=== PATIENT | male | born 1975 | race Caucasian/White ===

== ENCOUNTER 2017-01-29 22:29 | Inpatient (IN) | payer SELFPAY ==
[~2017-01-29] VITALS: Ht 175.3 cm; Wt 64.9 kg
[~2017-01-29 22:29] MED LIST: INSU-118 SQ; LISI-357 PO; METF500 PO; NOVO7030P2 SQ; NRSS SQ
[2017-01-29 22:31] VITALS: BP 122/73; PULSE 77; RESP 16; TEMP 98.3; O2SAT 97
[2017-01-29] MEDS ORDERED: METF1000 PO (22:52)
[2017-01-29] MEDS ORDERED: LANTUS2P SQ (22:52)
[2017-01-29] MEDS ORDERED: NOVORP2 SQ (22:52)
--- NOTE | 2017-01-29 23:09 | PD ---
HPI Chief Complaint: Diabetic Time Seen by Provider: 23:01 Travel History International Travel<30 days: No Contact w/Intl Traveler<30days: No Traveled to known affect area: No History of Present Illness HPI 41-year-old male presents to the emergency department by private transportation in the care of significant other for evaluation of polydipsia polyuria dental pain right flank pain and concerned that he may be in DKA. Patient reports that he was diagnosed as a diabetic 2 years ago. Patient states that he has no financial her insurance resources for managing his diabetes. Patient has noted dental pain to the right mandibular dentition along with oral thrush. Patient has history of diabetes, previous substance abuse, depression. Patient does not report any suicidal or homicidal ideation at this time. Patient rates his overall pain as 7/10 in intensity. Patient also complains of recent congestion and reportedly yesterday had a fever of 10 1F. PFSH Past Medical History Narrative Medical Diabetes diminished hearing substance abuse anxiety depression appendectomy tobaccoism alcohol use; nursing notes reviewed Bipolar Disorder: Yes Depression: Yes Cardiovascular Problems: Yes (HTN) Diabetes: Yes Patient Takes Glucophage: No (METFORMIN 01/29/17 0900) Diminished Hearing: Yes (RIGHT EAR) Hypertension: Yes Immunizations Current: Yes Tetanus Vaccination: Unknown Influenza Vaccination: No Past Surgical History Appendectomy: Yes Genitourinary Surgery: Yes (part of right testicle removed ) Social History Alcohol Use: No (DENIES) Tobacco Use: Yes (1/2 PPD) Substance Use: Yes (OPIATES, "ANYTHING I CAN GET") Allergies-Medications (Allergen,Severity, Reaction): Coded Allergies: penicillin G (Verified Allergy, Unknown, 01/29/17) Reported Meds & Prescriptions Reported Meds & Active Scripts Active Reported Novolin R Inj (Insulin Human Regular) 1,000 Unit/10 Ml Vial 0 SQ DIRECTED Sliding Scale As Directed. Lantus Inj (Insulin Glargine) 1,000 Unit/10 Ml Vial 80 Units SQ BID Metformin (Metformin HCl) 1,000 Mg Tab 1,000 Mg PO BIDPC With meals Review of Systems Except as stated in HPI: all other systems reviewed are Neg General / Constitutional: Positive: Fever, No: Chills (yesterday 101) HENT: Positive: Dental Difficulties, No: Congestion Cardiovascular: No: Chest Pain or Discomfort Respiratory: No: Shortness of Breath Gastrointestinal: Positive: Nausea, No: Vomiting, Abdominal Pain Genitourinary: Positive: Dysuria, Flank Pain Neurologic: Positive: Weakness Psychiatric: Positive: Anxiety Endocrine: Positive: Polyuria, Polydipsia Hematologic/Lymphatic: No: Easy Bruising Physical Exam Narrative GENERAL: Well-developed well-nourished male in no acute distress no respiratory distress; GCS 15 SKIN: Warm and dry. HEAD: Atraumatic. Normocephalic. EYES: Pupils equal and round. No scleral icterus. No injection or drainage. ENT: No nasal bleeding or discharge. Mucous membranes pink and moist. Multiple white plaques over the soft hard palate and tongue consistent with oral candidiasis #31 tooth with erosion and decay no gingival soft tissue swelling or fluctuance. NECK: Trachea midline. No JVD. Supple no meningismus no nuchal rigidity CARDIOVASCULAR: Regular rate and rhythm. RESPIRATORY: No accessory muscle use. Clear to auscultation. Breath sounds equal bilaterally. GASTROINTESTINAL: Abdomen soft, tender right upper quadrant and right lower quadrant without guarding or rebound, nondistended. Hepatic and splenic margins not palpable. MUSCULOSKELETAL: Extremities without clubbing, cyanosis, or edema. No obvious deformities. Right flank tenderness to percussion and palpation NEUROLOGICAL: Awake and alert. No obvious cranial nerve deficits. Motor grossly within normal limits. Five out of 5 muscle strength in the arms and legs. Normal speech. PSYCHIATRIC: Appropriate mood and affect; insight and judgment normal. Data Data Last Documented VS Vital Signs Date Time Temp Pulse Resp B/P (MAP) Pulse Ox O2 Delivery O2 Flow Rate FiO2 01/29/17 23:38 18 97 Room Air 01/29/17 22:31 98.3 77 Orders Orders Electrocardiogram (01/29/17 23:) Complete Blood Count With Diff (01/29/17 23:) Comprehensive Metabolic Panel (01/29/17 23:) Magnesium (Mg) (01/29/17 23:) Beta Hydroxybutyrate (Acetone) (01/29/17 23:) Lactic Acid (01/29/17 23:) Urinalysis - C+S If Indicated (01/29/17 23:) Blood Culture (01/29/17 23:) Chest, Single Ap (01/29/17 23:) Blood Glucose (01/29/17 23:) Ecg Monitoring (01/29/17 23:01) Iv Access Insert/Monitor (01/29/17 23:01) Oximetry (01/29/17 23:01) NPO (01/29/17 23:01) Sodium Chlor 0.9% 1000 Ml Inj (Ns 1000 M (01/29/17 23:31) Sodium Chloride 0.9% Flush (Ns Flush) (01/29/17 23:15) Troponin I (01/29/17 23:01) Lipase (01/29/17 23:01) Insulin Human Regular Inj (Novolin R Inj (01/29/17 23:15) Alcohol (Ethanol) (01/29/17 23:01) Drug Screen, Random Urine (01/29/17 23:01) Admit To Inpatient (01/30/17 ) Vital Signs (Adult) Q4H (01/30/17 00:28) Activity Oob Ad Patricia (01/30/17 00:28) Prototyper / Telemetry .CONTINUOUS (01/30/17 00:28) Diet 1800 Ada Cons Carb (01/30/17 Breakfast) Sodium Chloride 0.9% Flush (Ns Flush) (01/30/17 00:30) Sodium Chloride 0.9% Flush (Ns Flush) (01/30/17 09:00) Basic Metabolic Panel (Bmp) (01/31/17 06:00) Complete Blood Count With Diff (01/31/17 06:00) Case Management Consult (01/30/17 00:28) Naloxone Inj (Narcan Inj) (01/30/17 00:30) Inpatient Certification (01/30/17 ) Basic Metabolic Panel (Bmp) (01/30/17 01:00) Basic Metabolic Panel (Bmp) (01/30/17 05:00) Basic Metabolic Panel (Bmp) (01/30/17 09:00) Sodium Chlor 0.9% 1000 Ml Inj (Ns 1000 M (01/30/17 00:45) Ct Abd/Pel W/O Iv Contrast (01/30/17 ) Admit Order (Ed Use Only) (01/30/17 ) ^ Saline Lock (01/30/17 01:01) Resp Oxygen Smith C Titrat 1-4 L (01/30/17 ) Notify Dr: Other (01/30/17 01:01) Sodium Chloride 0.9% Flush (Ns Flush) (01/30/17 09:00) Sodium Chloride 0.9% Flush (Ns Flush) (01/30/17 01:15) Labs Laboratory Tests Test 01/29/17 23:30 White Blood Count 15.9 TH/MM3 Red Blood Count 4.81 MIL/MM3 Hemoglobin 14.3 GM/DL Hematocrit 44.2 % Mean Corpuscular Volume 91.9 FL Mean Corpuscular Hemoglobin 29.8 PG Mean Corpuscular Hemoglobin Concent 32.5 % Red Cell Distribution Width 13.1 % Platelet Count 316 TH/MM3 Mean Platelet Volume 9.1 FL Neutrophils (%) (Auto) 74.2 % Lymphocytes (%) (Auto) 17.4 % Monocytes (%) (Auto) 7.3 % Eosinophils (%) (Auto) 0.4 % Basophils (%) (Auto) 0.7 % Neutrophils # (Auto) 11.8 TH/MM3 Lymphocytes # (Auto) 2.8 TH/MM3 Monocytes # (Auto) 1.2 TH/MM3 Eosinophils # (Auto) 0.1 TH/MM3 Basophils # (Auto) 0.1 TH/MM3 CBC Comment DIFF FINAL Differential Comment Urine Color LIGHT-YELLOW Urine Turbidity CLEAR Urine pH 7.0 Urine Specific [place] 1.029 Urine Protein NEG mg/dL Urine Glucose (UA) 1000 mg/dL Urine Ketones TRACE mg/dL Urine Occult Blood NEG Urine Nitrite NEG Urine Bilirubin NEG Urine Urobilinogen LESS THAN 2.0 MG/DL Urine Leukocyte Esterase NEG Urine RBC LESS THAN 1 /hpf Urine WBC LESS THAN 1 /hpf Microscopic Urinalysis Comment CULT NOT INDICATED Blood Urea Nitrogen 18 MG/DL Creatinine 1.50 MG/DL Random Glucose 1200 MG/DL Total Protein 8.0 GM/DL Albumin 3.7 GM/DL Calcium Level 9.2 MG/DL Magnesium Level 2.0 MG/DL Alkaline Phosphatase 97 U/L Aspartate Amino Transf (AST/SGOT) 18 U/L Alanine Aminotransferase (ALT/SGPT) 38 U/L Total Bilirubin 0.9 MG/DL Sodium Level 113 MEQ/L Potassium Level 4.4 MEQ/L Chloride Level 73 MEQ/L Carbon Dioxide Level 24.3 MEQ/L Anion Gap 16 MEQ/L Estimat Glomerular Filtration Rate 51 ML/MIN Lactic Acid Level 1.6 mmol/L Troponin I LESS THAN 0.02 NG/ML Lipase 208 U/L Urine Opiates Screen POS Urine Barbiturates Screen NEG Urine Amphetamines Screen NEG Urine Benzodiazepines Screen NEG Urine Cocaine Screen NEG Urine Cannabinoids Screen NEG Ethyl Alcohol Level LESS THAN 3 MG/DL B-Hydroxybutyrate 0.99 MMOL/L MDM Medical Decision Making Medical Screen Exam Complete: Yes Emergency Medical Condition: Yes Medical Record Reviewed: Yes (12) Interpretation(s) EKG: Sinus bradycardia rate [address] elevation without reciprocal ST segment depression and artifact present at baseline Differential Diagnosis Hyperglycemia, DKA, oral candidiasis, pneumonia, UTI, pyelonephritis, renal colic, dehydration, electrolyte disturbance, substance abuse Narrative Course IV access obtained specimens collected and sent for resulting including lactic acid and blood cultures; patient administered 2 L normal saline and one time dose of weight-based regular insulin 6 units IV Patient given additional IV fluid bolus and patient's labs resulted Patient's case discussed with on-call medicine for hyperglycemia glucose 1200 with factitious hyponatremia sodium 113 with normal range potassium of 4.4 bicarbonate normal range and only minimally elevated anion gap of 16 lactic acid not elevated at 1.6 beta hydroxybutyric acid mildly elevated at 0.99 urinalysis showed positive glucose and positive small ketones otherwise was unremarkable CT abdomen and pelvis performed shows uropathprudence or acute intra-abdominal or pelvic process tox screen was positive for opiates Patient's case discussed with on-call medicine Dr. Elise would like to admit patient for hyperosmolar hyperglycemia nonketotic most likely small amount of elevation serum acetone and mild elevation of anion gap possibly indicating early DKA but currently not in DKA. Millie Trinidad MD Jan 29, 2017 23:09
[2017-01-29] MEDS ORDERED: INSULIN HUMAN REGULAR 1,000 UNITS/10 ML VIAL IV PUSH ONE (23:15)
[2017-01-29] MEDS ORDERED: SODIUM CHLORIDE 0.9% FLUSH 10 ML FLUSH IVF PRN (23:15)
[2017-01-29] MEDS ORDERED: SODIUM CHLOR 0.9% 1000 ML INJ 1,000 ML IV ONE (23:31)
[2017-01-29 23:38] VITALS: RESP 18; O2SAT 97
[2017-01-29 23:44] LABS: BLOOD, URINE NEG (NEG); COMMENT (UR) CULT NOT INDICATED; CULTURE IF INDICATED CULT NOT INDICATED; GLUCOSE,URINE 1000 mg/dL (NEG); KETONE, URINE TRACE mg/dL (NEG); NITRITE,URINE NEG (NEG); URINE COLOR LIGHT-YELLOW (YELLW/STRAW)
[2017-01-29 23:45] LABS: AUTOMATED NEUTROPHIL # 11.8 TH/MM3 (1.8-7.7); BASOPHIL # 0.1 TH/MM3 (0-0.2); BASOPHIL % 0.7 % (0.0-2.0); EOSINOPHIL # 0.1 TH/MM3 (0-0.4); EOSINOPHIL % 0.4 % (0.0-4.0); HEMATOCRIT 44.2 % (39.0-51.0); HEMO FLAGS DIFF FINAL; LYMPH % 17.4 % (9.0-44.0); LYMPHOCYTE # 2.8 TH/MM3 (1.0-4.8); MEAN CELL VOLUME 91.9 FL (80.0-100.0); MEAN CORPUSCULAR HEMOGLOBIN 29.8 PG (27.0-34.0); MEAN CORPUSCULAR HGB CONC 32.5 % (32.0-36.0); MONO % 7.3 % (0.0-8.0); NEUT % 74.2 % (16.0-70.0); PLATELET COUNT 316 TH/MM3 (150-450); RED BLOOD COUNT 4.81 MIL/MM3 (4.50-5.90); RED CELL DISTRIBUTION WIDTH 13.1 % (11.6-17.2); WHITE BLOOD COUNT 15.9 TH/MM3 (4.0-11.0)
[2017-01-30] VITALS (18 sets, daily range): BP systolic 100–117; BP diastolic 57–73; PULSE 61–100; RESP 18; TEMP 97.8–98.5; O2SAT 97–99
[2017-01-30 00:21] LABS: ALCOHOL LESS THAN 3 MG/DL (0-5); ALKALINE PHOSPHATASE 97 U/L (45-117); ALT (GPT) 38 U/L (12-78); ANION GAP 16 MEQ/L (5-15); AST (GOT) 18 U/L (15-37); BETA-HYDROXYBUTYRATE 0.99 MMOL/L (0.00-0.39); BICARBONATE 24.3 MEQ/L (21.0-32.0); BLOOD UREA NITROGEN 18 MG/DL (7-18); CHLORIDE 73 MEQ/L (98-107); GLOMERULAR FILTRATION RATE 51 ML/MIN (>89); POTASSIUM 4.4 MEQ/L (3.5-5.1); TOTAL BILIRUBIN ADULT 0.9 MG/DL (0.2-1.0)
[2017-01-30 00:23] LABS: SODIUM (NA) 113 MEQ/L (136-145)
--- NOTE | 2017-01-30 00:28 | RADRPT ---
EXAM DATE/TIME: 01/29/2017 23:45 [facility] COMPARISON: CHEST SINGLE AP, August 20, 2015, 1:54. INDICATIONS : Cough. MEDICAL HISTORY : Diabetes mellitus type I. SURGICAL HISTORY : None. ENCOUNTER: Initial ACUITY: 1 day PAIN SCORE: 0/10 LOCATION: Bilateral chest FINDINGS: A single view of the chest demonstrates the lungs to be symmetrically aerated without evidence of mas s, infiltrate or effusion. The cardiomediastinal contours are unremarkable. Right clavicle fracture with nonunion. CONCLUSION: No acute disease. Right clavicle fracture noted with nonunion Rell Blankenship MD on January 30, 2017 at 0:26 Board Certified Radiologist. This report was verified electronically.
[2017-01-30] MEDS ORDERED: NALOXONE HCL 0.4 MG/ML AMP IV PRN (00:30)
[2017-01-30] MEDS ORDERED: SODIUM CHLORIDE 0.9% FLUSH 10 ML FLUSH IV FLUSH PRN (00:30)
[2017-01-30] MEDS ORDERED: SODIUM CHLORIDE 0.9% FLUSH 10 ML FLUSH IVF PRN (01:15)
--- NOTE | 2017-01-30 01:45 | RADRPT ---
EXAM DATE/TIME: 01/30/2017 01:26 [facility] COMPARISON: No previous studies available for comparison. INDICATIONS : Right flank pain. ORAL CONTRAST: No oral contrast ingested. RADIATION DOSE: 4.86 CTDIvol (mGy) MEDICAL HISTORY : Hypertension. Diabetes. SURGICAL HISTORY : Appendectomy. ENCOUNTER: Initial ACUITY: 1 day PAIN SCALE: 7/10 LOCATION: Right flank TECHNIQUE: Volumetric scanning of the abdomen and pelvis was performed. Using automated exposure control and ad justment of the mA and/or kV according to patient size, radiation dose was kept as low as reasonably achievable to obtain optimal diagnostic quality images. DICOM format image data is available electro nically for review and comparison. FINDINGS: Limitations are clear. No acute findings in the liver, spleen, adrenals or pancreas. There are 2 tiny nonobstructing 1 mm or less calculi lower pole right kidney. Left kidney unremarkable. No hydronephr osis or evidence for obstructive uropathy. No bowel obstruction. No free air or free fluid. No pelvic masses or adenopathy. Previous yvette fixatio n right femur. CONCLUSION: 1. Tiny nonobstructing calculi lower pole right kidney. No acute findings. Negative for obstructive u ropathy. Rell Blankenship MD on January 30, 2017 at 1:41 Board Certified Radiologist. This report was verified electronically.
[2017-01-30] MEDS: SODIUM CHLOR 0.9% 1000 ML INJ 1,000 ML IV SCH ×4 (01:58→12:24)
[2017-01-30 02:26] LABS: BICARBONATE 24.5 MEQ/L (21.0-32.0); POTASSIUM 3.7 MEQ/L (3.5-5.1)
[2017-01-30] MEDS ORDERED: DEXTROSE 50% IN WATER 50 ML VIAL(D50) IV PRN ×2 (03:30→11:45)
[2017-01-30] MEDS ORDERED: GLUCAGON 1 MG/ML VIAL IM PRN (03:30)
[2017-01-30] MEDS ORDERED: INSULIN HUMAN REGULAR 1,000 UNITS/10 ML VIAL IV PUSH PRN (04:00)
[2017-01-30] MEDS ORDERED: SODIUM CHLOR 0.9% 1000 ML INJ 1,000 ML IV ONE (04:00)
--- NOTE | 2017-01-30 04:25 | HHI.HP ---
[facility] No Primary Care Physician . Admission Diagnosis hyperosmolar-hyperglycemia;dehydration . Diagnoses: (1) Uncontrolled diabetes mellitus Chief Complaint: weakness, fatigue, nausea, vomiting, fever Travel History International Travel<30 Days: No Contact w/Intl Traveler <30 Da: No Traveled to Known Affected Are: No History of Present Illness Written by Perla Pederson, acting as scribe for Dr. Forrester on 01/30/17 at 04:16. The patient reports that he has been feeling weak, fatigued, nauseated, vomiting , fever of 101 at home. 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 Review of Systems Except as stated in HPI: all other systems reviewed are Neg Past Family Social History Past Medical History Type 2 Diabetes Mellitus - diagnosed 2 years ago Possible Hepatitis Hypertension Kidney stones Seizures Bipolar disorder Denies CAD, CHF, COPD, emphysema, asthma, DVT, CVA, PE, thyroid, cancer, or prostate problems . Past Surgical History Appendectomy Right femur, jaw, nose repair for fractures - reconstructive Right hydrocelectomy 08/23/14 - Dr. Sorensen . Reported Medications Reported Meds & Active Scripts Active Reported Novolin R Inj (Insulin Human Regular) 1,000 Unit/10 Ml Vial 0 SQ DIRECTED Sliding Scale As Directed. Lantus Inj (Insulin Glargine) 1,000 Unit/10 Ml Vial 80 Units SQ BID Metformin (Metformin HCl) 1,000 Mg Tab 1,000 Mg PO BIDPC With meals . Allergies: Coded Allergies: penicillin G (Verified Allergy, Unknown, 01/29/17) Active Ordered Medications Current Medications Sodium Chloride 1,000 ml @ 2,000 mls/hr Q30M ONCE IV Last administered on 01/29 23:49; Start 01/29/17 at 23:31; Stop 01/30/17 at 00:00; Status DC Sodium Chloride (NS Flush) 2 ml UNSCH PRN IVF FLUSH AFTER USING IV ACCESS; Start 01/29/17 at 23:15; Stop 01/30/17 at 00:38; Status DC Insulin Human Regular (NovoLIN R INJ) 6 units ONCE ONCE IV PUSH Last administered on 01/29/17 23:48; Start 01/29/17 at 23:15; Stop 01/29/17 at 23:16 ; Status DC Sodium Chloride (NS Flush) 2 ml UNSCH PRN IV FLUSH FLUSH AFTER USING IV ACCESS ; Start 01/30/17 at 00:30; Stop 01/30/17 at 01:05; Status DC Sodium Chloride (NS Flush) 2 ml BID IV FLUSH ; Start 01/30/17 at 09:00; Stop at 09:00; Status DC Naloxone HCl (Narcan Inj) 0.4 mg UNSCH PRN IV SEE LABEL COMMENTS; Start at 00:30 Sodium Chloride 1,000 ml @ 200 mls/hr Q5H IV Last administered on 01/30/17 01 :58; Start 01/30/17 at 00:45 Sodium Chloride (NS Flush) 2 ml BID IV FLUSH ; Start 01/30/17 at 09:00 Sodium Chloride (NS Flush) 2 ml UNSCH PRN IVF FLUSH AFTER USING IV ACCESS; Start 01/30/17 at 01:15 Dextrose (D50w (Vial) Inj) 50 ml UNSCH PRN IV HYPOGLYCEMIA-SEE COMMENTS; Start 01/30/17 at 03:30 Glucagon (Glucagon Inj) 1 mg STAT PRN IM HYPOGLYCEMIA-SEE COMMENTS; Start 01/30 at 03:30 Sodium Chloride 1,000 ml @ 999 mls/hr BOLUS ONCE IV Last administered on 01/30 04:06; Start 01/30/17 at 04:00; Stop 01/30/17 at 05:00 Insulin Human Regular (NovoLIN R INJ) 10 units UNSCH X1 PRN IV PUSH BS>350 Last administered on 01/30/17 04:06; Start 01/30/17 at 04:00; Stop 01/30/17 at 04:30 . Family History Grandfather with colon CA in his 50's/60's . Social History Smokes: 1 PPD Alcohol: Denies Illicit Drugs: IV Dilaudid - last used a few days ago, heroin . Physical Exam Vital Signs Vital Signs Date Time Temp Pulse Resp B/P (MAP) Pulse Ox O2 Delivery O2 Flow Rate FiO2 01/30/17 01:41 64 18 112/68 (83) 97 Room Air 01/30/17 01:04 21 01/29/17 23:38 18 97 Room Air 01/29/17 22:31 98.3 77 16 122/73 (89) 97 Room Air Physical Exam GENERAL: This is an unkempt, pale, thin male patient, who appears somewhat agitated. SKIN: No rashes. Cool and dry. HEAD: Atraumatic. Normocephalic. EYES: Pupils equal round and reactive. No injection or drainage. ENT: Nose without bleeding, purulent drainage. Throat with apparent oral thrush. Airway patent. NECK: Trachea midline. No JVD. Supple, nontender, no meningeal signs. CARDIOVASCULAR: Regular rate and rhythm without murmurs, gallops, or rubs. RESPIRATORY: Clear to auscultation. Breath sounds equal bilaterally. No wheezes , rales, or rhonchi. GASTROINTESTINAL: Abdomen soft, non-tender, nondistended. No guarding. MUSCULOSKELETAL: Extremities without clubbing, cyanosis, or edema. NEUROLOGICAL: Awake and alert. Motor and sensory grossly within normal limits. Normal speech. . Laboratory Laboratory Tests Test 01/29/17 23:30 01/30/17 01:45 White Blood Count 15.9 Red Blood Count 4.81 Hemoglobin 14.3 Hematocrit 44.2 Mean Corpuscular Volume 91.9 Mean Corpuscular Hemoglobin 29.8 Mean Corpuscular Hemoglobin Concent 32.5 Red Cell Distribution Width 13.1 Platelet Count 316 Mean Platelet Volume 9.1 Neutrophils (%) (Auto) 74.2 Lymphocytes (%) (Auto) 17.4 Monocytes (%) (Auto) 7.3 Eosinophils (%) (Auto) 0.4 Basophils (%) (Auto) 0.7 Neutrophils # (Auto) 11.8 Lymphocytes # (Auto) 2.8 Monocytes # (Auto) 1.2 Eosinophils # (Auto) 0.1 Basophils # (Auto) 0.1 CBC Comment DIFF FINAL Differential Comment Urine Color LIGHT-YELLOW Urine Turbidity CLEAR Urine pH 7.0 Urine Specific [place] 1.029 Urine Protein NEG Urine Glucose (UA) 1000 Urine Ketones TRACE Urine Occult Blood NEG Urine Nitrite NEG Urine Bilirubin NEG Urine Urobilinogen LESS THAN 2.0 Urine Leukocyte Esterase NEG Urine RBC LESS THAN 1 Urine WBC LESS THAN 1 Microscopic Urinalysis Comment CULT NOT INDICATED Blood Urea Nitrogen 18 14 Creatinine 1.50 1.15 Random Glucose 1200 779 Total Protein 8.0 Albumin 3.7 Calcium Level 9.2 7.9 Magnesium Level 2.0 Alkaline Phosphatase 97 Aspartate Amino Transf (AST/SGOT) 18 Alanine Aminotransferase (ALT/SGPT) 38 Total Bilirubin 0.9 Sodium Level 113 124 Potassium Level 4.4 3.7 Chloride Level 73 87 Carbon Dioxide Level 24.3 24.5 Anion Gap 16 13 Estimat Glomerular Filtration Rate 51 69 Lactic Acid Level 1.6 Troponin I LESS THAN 0.02 Lipase 208 Urine Opiates Screen POS Urine Barbiturates Screen NEG Urine Amphetamines Screen NEG Urine Benzodiazepines Screen NEG Urine Cocaine Screen NEG Urine Cannabinoids Screen NEG Ethyl Alcohol Level LESS THAN 3 B-Hydroxybutyrate 0.99 Date/Time Source Procedure Growth Status 01/29/17 23:30 Blood Peripheral Aerobic Blood Culture Pending Received 01/29/17 23:30 Blood Peripheral Anaerobic Blood Culture Pending Received Result Diagram: 01/29/17 2330 01/30/17 0145 Imaging Last Impressions Abdomen/Pelvis CT 01/30/17 0000 Signed Impressions: Service Date/Time: January 01:26 - CONCLUSION: 1. Tiny nonobstructing calculi lower pole right kidney. No acute findings. Negative for obstructive uropathy. Rell Blankenship MD Chest X-Ray 01/29/17 2301 Signed Impressions: Service Date/Time: Sunday, January 29, 2017 23:45 - CONCLUSION: No acute disease. Right clavicle fracture noted with nonunion Rell Blankenship MD . Caprini VTE Risk Assessment Caprini VTE Risk Assessment: Mod/High Risk (score >= 2) Caprini Risk Assessment Model Point Value = 1 Point Value = 2 Point Value = 3 Point Value = 5 Age 41-60 Minor surgery BMI > 25 kg/m2 Swollen legs Varicose veins or History of unexplained or recurrent spontaneous Oral contraceptives or hormone replacement Sepsis (< 1 month) Serious lung disease, including pneumonia (< 1 month) Abnormal pulmonary function Acute myocardial infarction Congestive heart failure (< 1 month) History of inflammatory bowel disease Medical patient at bed rest Age 61-74 Arthroscopic surgery Major open surgery (> 45 min) Laparoscopic surgery (> 45 min) Malignancy Confined to bed (> 72 hours) Immobilizing plaster cast Central venous access Age >= 75 History of VTE Family history of VTE Factor V Leiden Prothrombin [id number] Lupus anticoagulant Anticardiolipin antibodies Elevated serum homocysteine Heparin-induced thrombocytopenia Other congenital or acquired thrombophilia Stroke (< 1 month) Elective arthroplasty Hip, pelvis, or leg fracture Acute spinal cord injury (< 1 month) Prophylaxis Regimen Total Risk Factor Score Risk Level Prophylaxis Regimen 0-1 Low Early ambulation 2 Moderate Order ONE of the following: *Sequential Compression Device (SCD) *Heparin 5000 units SQ BID 3-4 Higher Order ONE of the following medications: *Heparin 5000 units SQ TID *Enoxaparin/Lovenox 40 mg SQ daily (WT < 150 kg, CrCl > 30 mL/min) *Enoxaparin/Lovenox 30 mg SQ daily (WT < 150 kg, CrCl > 10-29 mL/min) *Enoxaparin/Lovenox 30 mg SQ BID (WT < 150 kg, CrCl > 30 mL/min) AND/OR *Sequential Compression Device (SCD) 5 or more Highest Order ONE of the following medications: *Heparin 5000 units SQ TID (Preferred with Epidurals) *Enoxaparin/Lovenox 40 mg SQ daily (WT < 150 kg, CrCl > 30 mL/min) *Enoxaparin/Lovenox 30 mg SQ daily (WT < 150 kg, CrCl > 10-29 mL/min) *Enoxaparin/Lovenox 30 mg SQ BID (WT < 150 kg, CrCl > 30 mL/min) AND *Sequential Compression Device (SCD) Assessment and Plan Problem List: (1) Uncontrolled diabetes mellitus ICD Code: E11.65 - Type 2 diabetes mellitus with hyperglycemia Status: Acute (2) Oral thrush ICD Code: B37.0 - Candidal stomatitis Assessment and Plan Uncontrolled diabetes mellitus Hyperosmolar Hyperglycemia - IVF - Insulin 70/30 15 units subq BID - 1800 kcal ADA diet - Accuchecks q3h - nursing to call for blood glucose > 250 - insulin dosage ordered at time of RN call for now - transition to SSI coverage when blood glucose better controlled Thrush - Nystatin 5cc swish and swallow QID Agitation/History of benzodiazepine withdrawal - PRN Ativan 1 mg IV q2h PRN for withdrawal symptoms Bipolar disorder with suicidal ideation - sitter at bedside - consult psychiatry - assistance appreciated Case management consult for assistance with medications on discharge and possible placement at [facility] DVT prophylaxis - Lovenox 40 mg subq daily . This note was transcribed by zakia [Perla Pederson]. I, Dr. Elvia Forrester personally performed the history, physical exam, and medical decision making; and confirmed the accuracy of the information in the transcribed note. Authenticated by Dr. Elvia Forrester on 01/30/17 at 04:16. Discussed Condition With ER physician, RN, and patient . Physician Certification 2 Midnight Certification Type: Admission for Inpatient Services Order for Inpatient Services The services are ordered in accordance with Medicare regulations or non- Medicare payer requirements, as applicable. In the case of services not specified as inpatient-only, they are appropriately provided as inpatient services in accordance with the 2-midnight benchmark. Estimated LOS (days): 3 days is the estimated time the patient will need to remain in the hospital, assuming treatment plan goals are met and no additional complications. Post-Hospital Plan: Not yet determined Perla Pederson Jan 30, 2017 04:25 Elvia Forrester MD Jan 30, 2017 04:50
[2017-01-30] MEDS ORDERED: NYSTATIN SUSP 500,000 U/5 ML CUP SWISH-SWAL ONE (04:45)
[2017-01-30] MEDS ORDERED: LORazepam 2 MG/ML VIAL IV PUSH ONE ×2 (05:15→22:30)
[2017-01-30] MEDS: ENOXAPARIN SODIUM 40 MG/0.4 ML SYRINGE SQ SCH (05:24)
[2017-01-30 05:57] LABS: BICARBONATE 25.6 MEQ/L (21.0-32.0); POTASSIUM 3.3 MEQ/L (3.5-5.1)
[2017-01-30] MEDS: INSULIN HUMAN NPH/R 70/30 1,000 UNITS/10 ML VIAL SQ SCH ×2 (07:59→17:00)
--- NOTE | 2017-01-30 08:01 | HHI.PR ---
Subjective Remarks in no acute distress. denies pain. blood sugar levels improved. Objective Vitals Vital Signs Date Time Temp Pulse Resp B/P (MAP) Pulse Ox O2 Delivery O2 Flow Rate FiO2 01/30/17 07:05 61 18 102/61 (75) 99 Room Air 01/30/17 07:05 61 17 99 Room Air 01/30/17 07:05 97.8 63 18 106/57 (73) 99 Room Air 01/30/17 06:22 63 18 100/63 (75) 98 Room Air 01/30/17 05:01 63 18 101/61 (74) 99 Room Air 01/30/17 03:45 64 18 108/60 (76) 97 Room Air 01/30/17 01:41 64 18 112/68 (83) 97 Room Air 01/30/17 01:04 21 01/29/17 23:38 18 97 Room Air 01/29/17 22:31 98.3 77 16 122/73 (89) 97 Room Air I/O 01/29/17 01/29/17 01/29/17 01/30/17 01/30/17 01/30/17 07:00 15:00 23:00 07:00 15:00 23:00 Intake Total 3000 ml Balance 3000 ml Intake IV Total 3000 ml Result Diagram: 01/29/17 2330 01/30/17 0520 Imaging Last Impressions Abdomen/Pelvis CT 01/30/17 0000 Signed Impressions: Service Date/Time: January 01:26 - CONCLUSION: 1. Tiny nonobstructing calculi lower pole right kidney. No acute findings. Negative for obstructive uropathy. Rell Blankenship MD Chest X-Ray 01/29/17 2301 Signed Impressions: Service Date/Time: Sunday, January 29, 2017 23:45 - CONCLUSION: No acute disease. Right clavicle fracture noted with nonunion Rell Blankenship MD Objective Remarks GENERAL: This is a well-nourished, well-developed patient, in no apparent distress. CARDIOVASCULAR: Regular rate and regular rhythm without murmurs, gallops, or rubs. RESPIRATORY: Clear to auscultation. Breath sounds equal bilaterally. No wheezes , rales, or rhonchi. GASTROINTESTINAL: Abdomen soft, non-tender, nondistended. Normal, active bowel sounds MUSCULOSKELETAL: Extremities without clubbing, cyanosis, or edema. NEURO: Alert & Oriented x4 to person, place, time, situation. Moves all ext x4 Medications and IVs Current Medications Sodium Chloride 1,000 ml @ 2,000 mls/hr Q30M ONCE IV Last administered on 01/29 23:49; Start 01/29/17 at 23:31; Stop 01/30/17 at 00:00; Status DC Sodium Chloride (NS Flush) 2 ml UNSCH PRN IVF FLUSH AFTER USING IV ACCESS; Start 01/29/17 at 23:15; Stop 01/30/17 at 00:38; Status DC Insulin Human Regular (NovoLIN R INJ) 6 units ONCE ONCE IV PUSH Last administered on 01/29/17 23:48; Start 01/29/17 at 23:15; Stop 01/29/17 at 23:16 ; Status DC Sodium Chloride (NS Flush) 2 ml UNSCH PRN IV FLUSH FLUSH AFTER USING IV ACCESS ; Start 01/30/17 at 00:30; Stop 01/30/17 at 01:05; Status DC Sodium Chloride (NS Flush) 2 ml BID IV FLUSH ; Start 01/30/17 at 09:00; Stop at 09:00; Status DC Naloxone HCl (Narcan Inj) 0.4 mg UNSCH PRN IV SEE LABEL COMMENTS; Start at 00:30 Sodium Chloride 1,000 ml @ 200 mls/hr Q5H IV Last administered on 01/30/17 06 :19; Start 01/30/17 at 00:45 Sodium Chloride (NS Flush) 2 ml BID IV FLUSH ; Start 01/30/17 at 09:00 Sodium Chloride (NS Flush) 2 ml UNSCH PRN IVF FLUSH AFTER USING IV ACCESS; Start 01/30/17 at 01:15 Dextrose (D50w (Vial) Inj) 50 ml UNSCH PRN IV HYPOGLYCEMIA-SEE COMMENTS; Start 01/30/17 at 03:30 Glucagon (Glucagon Inj) 1 mg STAT PRN IM HYPOGLYCEMIA-SEE COMMENTS; Start 01/30 at 03:30 Sodium Chloride 1,000 ml @ 999 mls/hr BOLUS ONCE IV Last administered on 01/30 04:06; Start 01/30/17 at 04:00; Stop 01/30/17 at 05:00; Status DC Insulin Human Regular (NovoLIN R INJ) 10 units UNSCH X1 PRN IV PUSH BS>350 Last administered on 01/30/17 04:06; Start 01/30/17 at 04:00; Stop 01/30/17 at 04:30; Status DC Lorazepam (Ativan Inj) 1 mg ONCE ONCE IV PUSH Last administered on 01/30/17 05:24; Start 01/30/17 at 05:15; Stop 01/30/17 at 05:16; Status DC Lorazepam (Ativan Inj) 1 mg Q2H PRN IV PUSH withdrawal symptoms; Start at 04:45 Insulin Human Isoph/Insulin Regular (NovoLIN 70/30 INJ) 15 units BID@08,17 SQ ; Start 01/30/17 at 08:00 Nystatin (Mycostatin Liq) 5 ml QID SWISH-SWAL ; Start 01/30/17 at 09:00 Nystatin (Mycostatin Liq) 5 ml ONCE ONCE SWISH-SWAL Last administered on 01/30 05:23; Start 01/30/17 at 04:45; Stop 01/30/17 at 04:46; Status DC Enoxaparin Sodium (Lovenox Inj) 40 mg Q24H SQ Last administered on 01/30/17 05 :24; Start 01/30/17 at 06:00 A/P Assessment and Plan A/P Uncontrolled diabetes mellitus Hyperosmolar Hyperglycemia - IVF - Insulin 70/30 15 units subq BID - 1800 kcal ADA diet - continue accu-check with SSI - will monitor and adjust the regimen as needed. Hyponatremia- improved- will monitor Hypokalemia; will replace and monitor. Thrush - Nystatin 5cc swish and swallow QID Agitation/History of benzodiazepine withdrawal - PRN Ativan 1 mg IV q2h PRN for withdrawal symptoms Bipolar disorder with suicidal ideation - sitter at bedside - consulted psychiatry - assistance appreciated Case management consult for assistance with medications on discharge and possible placement at [facility] DVT prophylaxis - Lovenox 40 mg subq daily Keeley Ahn MD Jan 30, 2017 08:01
[2017-01-30] MEDS: NYSTATIN SUSP 500,000 U/5 ML CUP SWISH-SWAL SCH ×4 (08:05→21:40)
[2017-01-30] MEDS: SODIUM CHLORIDE 0.9% FLUSH 10 ML FLUSH IV FLUSH SCH ×2 (08:06→21:40)
--- NOTE | 2017-01-30 08:23 | EKG ---
Date Performed: 01/30/2017 Time Performed: 00:03:21 PTAGE: 41 years EKG: SINUS BRADYCARDIA WITH SHORT HI INTERVAL DIFFUSE NONSPECIFIC ST ELEVATION BORDERLINE ECG PREVIOUS TRACING : 08/20/2015 02.44 No significant change from previous tracing noted. DOCTOR: Oc Fernandez Interpretating Date/Time 01/30/2017 08:22:13
[2017-01-30] MEDS ORDERED: SODIUM CHLORIDE 0.9% FLUSH 10 ML FLUSH IV FLUSH SCH (09:00)
[2017-01-30] MEDS ORDERED: POTASSIUM CHLORIDE 10 MEQ CONTROLLED RELEASE TAB PO ONE (09:00)
--- NOTE | 2017-01-30 11:26 | PD.PSY.CON ---
Provisional Diagnosis Admission Date Jan 30, 2017 at 01:03 [place] I. Adjustment disorder with mixed disturbance of emotion and conduct History of Present Illness Service Psychiatry Consult Requested By Hospitalist Reason for Consult Suicidal statements. Primary Care Physician No Primary Care Physician HPI 41-year-old male admitted with [id number] diabetes, oral thrush and suicide threats. Patient declined to speak with this physician and asked this physician to go away. This physician spoke with the patient's and received information from her. Apparently the patient has a significant history of drug abuse. He is not employed. They are in great financial difficulty. The patient is often times refusing to receive medical assistance. He has in the past attempted to be treated at [facility] but they will not accept him for drug treatment, due to his diabetes. Patient's states he threatens suicide intermittently and states he has cognitive deficits. This physician does not see objective evidence in the medical record as to why the patient would have significant cognitive deficits. Patient's is very concerned that he does not take care of himself, continues to use drugs and is likely to do something to harm himself in accordance with his suicidal ideation. Review of Systems Except as stated in HPI: all other systems reviewed are Neg Psychiatric: COMPLAINS OF: Agitation Past Family Social History Coded Allergies: penicillin G (Verified Allergy, Unknown, 01/29/17) Reported Medications Insulin Human Regular Inj (Novolin R Inj) 1,000 Unit/10 Ml Vial, 0 SQ DIRECTED for Blood Sugar Management, #10 ML 0 Refills Sliding Scale As Directed. 01/29/17 Insulin Glargine Inj (Lantus Inj) 1,000 Unit/10 Ml Vial, 80 UNITS SQ BID for Blood Sugar Management, VIAL 0 Refills 01/29/17 Metformin (Metformin) 1,000 Mg Tab, 1000 MG PO BIDPC for Blood Sugar Management , #60 TAB 0 Refills With meals 01/29/17 Discontinued Scripts Insulin Syringe/Needle U-100 ([facility] Insulin Syringes/ 31G X 10/22" 0.5 ml) 1 Mis Mis, BOX SQ DIRECTED for Blood Sugar Management, #1 Prov:Merlin Browne MD 08/25/15 Insulin Human Regular (Novolin Regular Insulin Supplemental Scale) U 100 Inj, 2- 12 UNITS SQ TIDACHS for Blood Sugar Management, #10 ML Medium Dose Regular Insulin Sliding Scale = Max dose at bedtime:( )units; Max dose at 3am:( ); blood sugars less than 70 take zero insulin units; blood sugars 150-199 take 2 unit; blood sugars 200-249 take 4 units; blood sugars 250-299 take 7 units; blood sugars 300-349 take 10 units; blood sugars greater than 349 take 12 units Prov:Merlin Browne MD 08/25/15 Insulin Human Isophan/Regular (Novolin 70/30) 100 Units/Ml Inj, 25 UNITS SQ BID for Blood Sugar Management, #10 ML Prov:Merlin Browne MD 08/25/15 Lisinopril 5 mg (Lisinopril 5 mg) 5 Mg Tab, 1 TAB PO DAILY for Blood Pressure Management for 30 Days, TAB Prov:Merlin Browne MD 08/25/15 Metformin 500 mg (Glucophage 500 mg) 500 Mg Tab, 1000 MG PO BIDPC for Blood Sugar Management for 30 Days, TAB Prov:Merlin Browne MD 08/25/15 Current Medications Medications (Trade) Dose Ordered Sig/Daniel Route Start Time Stop Time Status Last Admin (Narcan Inj) 0.4 mg UNSCH PRN IV 01/30/17 00:30 Sodium Chloride 1,000 ml @ 125 mls/hr Q8H IV 01/30/17 00:45 01/30/17 06:19 (NS Flush) 2 ml BID IV FLUSH 01/30/17 09:00 (NS Flush) 2 ml UNSCH PRN IVF 01/30/17 01:15 (D50w (Vial) Inj) 50 ml UNSCH PRN IV 01/30/17 03:30 (Glucagon Inj) 1 mg STAT PRN IM 01/30/17 03:30 (Ativan Inj) 1 mg Q2H PRN IV PUSH 01/30/17 04:45 (NovoLIN 70/30 INJ) 15 units BID@08,17 SQ 01/30/17 08:00 01/30/17 07:59 (Mycostatin Liq) 5 ml QID SWISH-SWAL 01/30/17 09:00 01/30/17 08:05 (Lovenox Inj) 40 mg Q24H SQ 01/30/17 06:00 01/30/17 05:24 Family History Positive family history of mood disorders. Patient is listed as having bipolar disorder, but this physician does not see significant objective clinical evidence of such. Patient presents more as an individual with a personality disorder and a drug problem. Social History Patient is . Not currently employed. Does abuse drugs. Patient's Strengths (min. 2) Verbal and resilient. Physical Exam Vital Signs Vital Signs Date Time Temp Pulse Resp B/P (MAP) Pulse Ox O2 Delivery O2 Flow Rate FiO2 01/30/17 09:40 97.9 64 17 106/60 (75) 99 01/30/17 08:16 21 01/30/17 07:05 Room Air I/O 01/30/17 01/30/17 01/30/17 07:59 15:59 23:59 Intake Total 3000 ml 300 ml Output Total 800 ml Balance 3000 ml -500 ml Lab Results Test 01/29/17 23:30 01/30/17 01:45 01/30/17 05:20 White Blood Count 15.9 TH/MM3 Red Blood Count 4.81 MIL/MM3 Hemoglobin 14.3 GM/DL Hematocrit 44.2 % Mean Corpuscular Volume 91.9 FL Mean Corpuscular Hemoglobin 29.8 PG Mean Corpuscular Hemoglobin Concent 32.5 % Red Cell Distribution Width 13.1 % Platelet Count 316 TH/MM3 Mean Platelet Volume 9.1 FL Neutrophils (%) (Auto) 74.2 % Lymphocytes (%) (Auto) 17.4 % Monocytes (%) (Auto) 7.3 % Eosinophils (%) (Auto) 0.4 % Basophils (%) (Auto) 0.7 % Neutrophils # (Auto) 11.8 TH/MM3 Lymphocytes # (Auto) 2.8 TH/MM3 Monocytes # (Auto) 1.2 TH/MM3 Eosinophils # (Auto) 0.1 TH/MM3 Basophils # (Auto) 0.1 TH/MM3 CBC Comment DIFF FINAL Differential Comment Urine Color LIGHT-YELLOW Urine Turbidity CLEAR Urine pH 7.0 Urine Specific [place] 1.029 Urine Protein NEG mg/dL Urine Glucose (UA) 1000 mg/dL Urine Ketones TRACE mg/dL Urine Occult Blood NEG Urine Nitrite NEG Urine Bilirubin NEG Urine Urobilinogen LESS THAN 2.0 MG/DL Urine Leukocyte Esterase NEG Urine RBC LESS THAN 1 /hpf Urine WBC LESS THAN 1 /hpf Microscopic Urinalysis Comment CULT NOT INDICATED Blood Urea Nitrogen 18 MG/DL 14 MG/DL 12 MG/DL Creatinine 1.50 MG/DL 1.15 MG/DL 0.93 MG/DL Random Glucose 1200 MG/DL 779 MG/DL 384 MG/DL Total Protein 8.0 GM/DL Albumin 3.7 GM/DL Calcium Level 9.2 MG/DL 7.9 MG/DL 7.6 MG/DL Magnesium Level 2.0 MG/DL Alkaline Phosphatase 97 U/L Aspartate Amino Transf (AST/SGOT) 18 U/L Alanine Aminotransferase (ALT/SGPT) 38 U/L Total Bilirubin 0.9 MG/DL Sodium Level 113 MEQ/L 124 MEQ/L 132 MEQ/L Potassium Level 4.4 MEQ/L 3.7 MEQ/L 3.3 MEQ/L Chloride Level 73 MEQ/L 87 MEQ/L 99 MEQ/L Carbon Dioxide Level 24.3 MEQ/L 24.5 MEQ/L 25.6 MEQ/L Anion Gap 16 MEQ/L 13 MEQ/L 7 MEQ/L Estimat Glomerular Filtration Rate 51 ML/MIN 69 ML/MIN 89 ML/MIN Lactic Acid Level 1.6 mmol/L Troponin I LESS THAN 0.02 NG/ML Lipase 208 U/L Urine Opiates Screen POS Urine Barbiturates Screen NEG Urine Amphetamines Screen NEG Urine Benzodiazepines Screen NEG Urine Cocaine Screen NEG Urine Cannabinoids Screen NEG Ethyl Alcohol Level LESS THAN 3 MG/DL B-Hydroxybutyrate 0.99 MMOL/L Date/Time Source Procedure Growth Status 01/29/17 23:30 Blood Peripheral Aerobic Blood Culture Pending Received 01/29/17 23:30 Blood Peripheral Anaerobic Blood Culture Pending Received Mental Status Examination Speech: Unremarkable Orientation: x3 Memory: Unremarkable Thought Process: Organized, Goal Directed Thought Content: Unremarkable Hallucination Type: None Attention and Concentration: Good Suicidal Ideation: Yes Previous Suicide Attempts: Yes Homicidal Ideation: No Previous Homicide Attempts: No Insight: Fair Judgment: Unrealistic Affect: Irritable Affect if Inappropriate: Blunt Mood: Irritable Motor Activity: Normal gait Assessment & Plan Problem List: (1) Adjustment disorder with mixed disturbance of emotions and conduct ICD Codes: F43.25 - Adjustment disorder with mixed disturbance of emotions and conduct (2) Alcohol dependence ICD Codes: F10.20 - Alcohol dependence, uncomplicated Assessment & Plan Estimated LOS: days this is a 41-year-old male with history of drug and alcohol abuse, threats of suicide, multiple stressors, and current significant medical issue of uncontrolled diabetes. This physician feels the patient needs to be stabilized with regard to his diabetes and alcohol withdrawal. At that time he should be reevaluated by the psychiatry consult service regarding his need for psychiatric hospitalization. Patient and are correct in that [facility] is very unlikely to accept patient for detox/rehabilitation of alcohol and drug problem because of his diabetes. However, this physician is very concerned that patient may indeed act out by harming himself or killing himself if he feels desperate and and as if patient is not being cared for. Reza Richard MD Jan 30, 2017 11:25
[2017-01-30] MEDS ORDERED: GLUCAGON 1 MG/ML VIAL OTHER PRN (11:45)
[2017-01-30] MEDS ORDERED: PHENOL 1.4% SOLN 180 ML BTL OROPHARYNG PRN (12:30)
[2017-01-30] MEDS ORDERED: ACETAMINOPHEN 325 MG TAB PO PRN (12:30)
[2017-01-30] MEDS: LORazepam 2 MG/ML VIAL IV PUSH PRN ×3 (12:31→21:46)
[2017-01-30] MEDS: ACETAMINOPHEN/HYDROcodone 325 MG/5 MG TAB PO PRN ×2 (14:53→21:40)
[2017-01-30] MEDS: INSULIN ASPART SUPPLEMENTAL SCALE SQ SCH ×2 (17:28→21:00)
--- NOTE | 2017-01-30 17:55 | HHI.PYPN ---
Subjective Remarks Called by RN to see pt because he wishes to leave AMA, no BA on chart. Patient evaluated by Dr. Richard earlier today, and I see in his assessment that he is "very concerned that patient may indeed act out by harming himself or killing himself if he feels desperate and and as if patient is not being cared for." I note that patient's is also concerned about pt's safety. I note that patient verbalized SI to the [facility] who admitted him. Patient seen and examined. Chart reviewed. Case d/w RN. On my exam, patient presents as dysphoric, seeming on the verge of tears. He says that he has to leave the hospital to get back to work and to his children. He says that he has a h/o BPAD not currently in treatment and previously "came into the ER with depression and they cut off half of my testicle." As a result, he says that he would not tell me if he was experiencing suicidal ideation or psychiatric symptoms because he does not want to repeat this experience. He does indeed deny feeling depressed and denies other aspects of the psychiatric ROS. Review of Systems ROS Limitations: Uncooperative, Poor Historian Other Limited ROS Objective Alert: Yes [place]: Person, Place (at least) Mood: Other (Dysphoric) Affect: Tearful Memory Intact: Comment (Not formally assessed) Hallucinations: Other (No AVH.) Delusions: No Delusion Type: Other (No anabella delusions) Suicidal: Ideation (Denies SI but unreliable to contract for safety.) Homicidal: Ideation (No HI) Insight/Judgment Poor Remarks No motor abnormalities noted. TP generally linear. Speech wnl for rate, tone, volume. Labs Test 01/29/17 23:30 01/30/17 01:45 01/30/17 05:20 White Blood Count 15.9 TH/MM3 Red Blood Count 4.81 MIL/MM3 Hemoglobin 14.3 GM/DL Hematocrit 44.2 % Mean Corpuscular Volume 91.9 FL Mean Corpuscular Hemoglobin 29.8 PG Mean Corpuscular Hemoglobin Concent 32.5 % Red Cell Distribution Width 13.1 % Platelet Count 316 TH/MM3 Mean Platelet Volume 9.1 FL Neutrophils (%) (Auto) 74.2 % Lymphocytes (%) (Auto) 17.4 % Monocytes (%) (Auto) 7.3 % Eosinophils (%) (Auto) 0.4 % Basophils (%) (Auto) 0.7 % Neutrophils # (Auto) 11.8 TH/MM3 Lymphocytes # (Auto) 2.8 TH/MM3 Monocytes # (Auto) 1.2 TH/MM3 Eosinophils # (Auto) 0.1 TH/MM3 Basophils # (Auto) 0.1 TH/MM3 CBC Comment DIFF FINAL Differential Comment Urine Color LIGHT-YELLOW Urine Turbidity CLEAR Urine pH 7.0 Urine Specific [place] 1.029 Urine Protein NEG mg/dL Urine Glucose (UA) 1000 mg/dL Urine Ketones TRACE mg/dL Urine Occult Blood NEG Urine Nitrite NEG Urine Bilirubin NEG Urine Urobilinogen LESS THAN 2.0 MG/DL Urine Leukocyte Esterase NEG Urine RBC LESS THAN 1 /hpf Urine WBC LESS THAN 1 /hpf Microscopic Urinalysis Comment CULT NOT INDICATED Blood Urea Nitrogen 18 MG/DL 14 MG/DL 12 MG/DL Creatinine 1.50 MG/DL 1.15 MG/DL 0.93 MG/DL Random Glucose 1200 MG/DL 779 MG/DL 384 MG/DL Total Protein 8.0 GM/DL Albumin 3.7 GM/DL Calcium Level 9.2 MG/DL 7.9 MG/DL 7.6 MG/DL Magnesium Level 2.0 MG/DL Alkaline Phosphatase 97 U/L Aspartate Amino Transf (AST/SGOT) 18 U/L Alanine Aminotransferase (ALT/SGPT) 38 U/L Total Bilirubin 0.9 MG/DL Sodium Level 113 MEQ/L 124 MEQ/L 132 MEQ/L Potassium Level 4.4 MEQ/L 3.7 MEQ/L 3.3 MEQ/L Chloride Level 73 MEQ/L 87 MEQ/L 99 MEQ/L Carbon Dioxide Level 24.3 MEQ/L 24.5 MEQ/L 25.6 MEQ/L Anion Gap 16 MEQ/L 13 MEQ/L 7 MEQ/L Estimat Glomerular Filtration Rate 51 ML/MIN 69 ML/MIN 89 ML/MIN Lactic Acid Level 1.6 mmol/L Troponin I LESS THAN 0.02 NG/ML Lipase 208 U/L Urine Opiates Screen POS Urine Barbiturates Screen NEG Urine Amphetamines Screen NEG Urine Benzodiazepines Screen NEG Urine Cocaine Screen NEG Urine Cannabinoids Screen NEG Ethyl Alcohol Level LESS THAN 3 MG/DL B-Hydroxybutyrate 0.99 MMOL/L Date/Time Source Procedure Growth Status 01/29/17 23:30 Blood Peripheral Aerobic Blood Culture - Preliminary NO GROWTH IN 1 DAY Resulted 01/29/17 23:30 Blood Peripheral Anaerobic Blood Culture - Preliminary NO GROWTH IN 1 DAY Resulted Labs reviewed. Vitals/IOs Vital Signs Date Time Temp Pulse Resp B/P (MAP) Pulse Ox O2 Delivery O2 Flow Rate FiO2 01/30/17 16:00 100 01/30/17 15:24 98.4 18 117/73 (88) 97 01/30/17 08:16 21 01/30/17 07:05 Room Air Intake and Output 01/30/17 01/30/17 01/31/17 08:00 16:00 00:00 Intake Total 3300 ml 1920 ml Output Total 800 ml Balance 2500 ml 1920 ml Assessment & Plan Problem List: (1) Adjustment disorder with mixed disturbance of emotions and conduct ICD Codes: F43.25 - Adjustment disorder with mixed disturbance of emotions and conduct Status: Acute (2) Alcohol dependence ICD Codes: F10.20 - Alcohol dependence, uncomplicated Status: Chronic Assessment & Plan Given documented concerns about patient's risk for self-harm, and given his statements of same to [facility], and given the fact that he is not a reliable historian in the sense that he has told me that he would not admit to SI even if he was experiencing this symptom, I have reasonable suspicion that there is a substantial likelihood that the patient will cause himself serious bodily harm. He meets the Hayes Act criteria at this time, and I have initiated the Hayes Act. Case d/w RN. Thank you for this consultation. For further psychiatric consultation, please contact Dr. Richard. Justification for Cont. Inpt. Per primary team. Discharge Planning BA initiated. Rm Nino MD Jan 30, 2017 17:55
[2017-01-30] MEDS ORDERED: HALOPERIDOL LACTATE 5 MG/ML AMP IV PUSH ONE (22:30)
[2017-01-31] VITALS (11 sets, daily range): BP systolic 101–122; BP diastolic 61–71; PULSE 58–72; RESP 17–18; TEMP 97.4–98.8; O2SAT 97–98
[2017-01-31] MEDS: LORazepam 2 MG/ML VIAL IV PUSH PRN ×7 (01:53→21:50)
[2017-01-31] MEDS: ENOXAPARIN SODIUM 40 MG/0.4 ML SYRINGE SQ SCH (05:50)
[2017-01-31] MEDS: INSULIN ASPART SUPPLEMENTAL SCALE SQ SCH ×4 (05:50→21:58)
[2017-01-31 06:56] LABS: AUTOMATED NEUTROPHIL # 7.3 TH/MM3 (1.8-7.7); BASOPHIL % 0.3 % (0.0-2.0); EOSINOPHIL # 0.1 TH/MM3 (0-0.4); EOSINOPHIL % 1.1 % (0.0-4.0); HEMO FLAGS DIFF FINAL; LYMPH % 29.9 % (9.0-44.0); LYMPHOCYTE # 3.5 TH/MM3 (1.0-4.8); MEAN CELL VOLUME 87.1 FL (80.0-100.0); MEAN CORPUSCULAR HEMOGLOBIN 29.3 PG (27.0-34.0); MEAN CORPUSCULAR HGB CONC 33.6 % (32.0-36.0); MONO % 6.7 % (0.0-8.0); PLATELET COUNT 269 TH/MM3 (150-450); RED BLOOD COUNT 4.36 MIL/MM3 (4.50-5.90); RED CELL DISTRIBUTION WIDTH 12.9 % (11.6-17.2); WHITE BLOOD COUNT 11.7 TH/MM3 (4.0-11.0)
[2017-01-31 07:13] LABS: BICARBONATE 21.2 MEQ/L (21.0-32.0); POTASSIUM 3.4 MEQ/L (3.5-5.1)
[2017-01-31] MEDS: INSULIN HUMAN NPH/R 70/30 1,000 UNITS/10 ML VIAL SQ SCH ×2 (08:00→16:52)
--- NOTE | 2017-01-31 08:42 | HHI.PR ---
Subjective Remarks in no acute distress. not cooperative. d/w the RN; he's at times aggressive. started on queen act. sitter in the room. Objective Vitals Vital Signs Date Time Temp Pulse Resp B/P (MAP) Pulse Ox O2 Delivery O2 Flow Rate FiO2 01/31/17 06:00 62 01/31/17 05:00 60 01/31/17 04:00 98.2 66 18 104/63 (77) 98 01/31/17 04:00 64 01/31/17 03:00 62 01/31/17 02:00 62 01/31/17 01:00 64 01/31/17 00:00 68 01/31/17 00:00 98.5 68 18 103/67 (79) 98 01/30/17 23:00 66 01/30/17 22:00 68 01/30/17 21:37 97 21 01/30/17 21:00 82 01/30/17 20:00 66 01/30/17 20:00 97.9 65 18 01/30/17 18:08 85 01/30/17 17:40 99 01/30/17 16:00 100 01/30/17 15:26 84 01/30/17 15:24 98.4 65 18 117/73 (88) 97 01/30/17 14:30 84 01/30/17 11:00 98.5 64 18 109/65 (80) 97 01/30/17 09:40 97.9 64 17 106/60 (75) 99 I/O 01/30/17 01/30/17 01/30/17 01/31/17 01/31/17 01/31/17 06:59 14:59 22:59 06:59 14:59 22:59 Intake Total 3000 ml 300 ml 1920 ml 2270 ml Output Total 800 ml 2000 ml Balance 3000 ml -500 ml 1920 ml 270 ml Intake Oral 300 ml 720 ml 720 ml IV Total 3000 ml 1200 ml 1550 ml Output Urine Total 800 ml 2000 ml # Voids 1 4 # Bowel Movements 0 1 Result Diagram: 01/31/17 0510 01/31/17 0510 Imaging Last Impressions Abdomen/Pelvis CT 01/30/17 0000 Signed Impressions: Service Date/Time: January 01:26 - CONCLUSION: 1. Tiny nonobstructing calculi lower pole right kidney. No acute findings. Negative for obstructive uropathy. Rell Blankenship MD Chest X-Ray 01/29/17 2301 Signed Impressions: Service Date/Time: Sunday, January 29, 2017 23:45 - CONCLUSION: No acute disease. Right clavicle fracture noted with nonunion Rell Blankenship MD Objective Remarks GENERAL: This is a well-nourished, well-developed patient, in no apparent distress. CARDIOVASCULAR: Regular rate and regular rhythm without murmurs, gallops, or rubs. RESPIRATORY: Clear to auscultation. Breath sounds equal bilaterally. No wheezes , rales, or rhonchi. GASTROINTESTINAL: Abdomen soft, non-tender, nondistended. Normal, active bowel sounds MUSCULOSKELETAL: Extremities without clubbing, cyanosis, or edema. NEURO: Alert & Oriented x4 to person, place, time, situation. Moves all ext x4 Procedures none Medications and IVs Current Medications Sodium Chloride 1,000 ml @ 2,000 mls/hr Q30M ONCE IV Last administered on 01/29 23:49; Start 01/29/17 at 23:31; Stop 01/30/17 at 00:00; Status DC Sodium Chloride (NS Flush) 2 ml UNSCH PRN IVF FLUSH AFTER USING IV ACCESS; Start 01/29/17 at 23:15; Stop 01/30/17 at 00:38; Status DC Insulin Human Regular (NovoLIN R INJ) 6 units ONCE ONCE IV PUSH Last administered on 01/29/17 23:48; Start 01/29/17 at 23:15; Stop 01/29/17 at 23:16 ; Status DC Sodium Chloride (NS Flush) 2 ml UNSCH PRN IV FLUSH FLUSH AFTER USING IV ACCESS ; Start 01/30/17 at 00:30; Stop 01/30/17 at 01:05; Status DC Sodium Chloride (NS Flush) 2 ml BID IV FLUSH ; Start 01/30/17 at 09:00; Stop at 09:00; Status DC Naloxone HCl (Narcan Inj) 0.4 mg UNSCH PRN IV SEE LABEL COMMENTS; Start at 00:30 Sodium Chloride 1,000 ml @ 125 mls/hr Q8H IV Last administered on 01/30/17 12 :24; Start 01/30/17 at 00:45 Sodium Chloride (NS Flush) 2 ml BID IV FLUSH Last administered on 01/30/17 21: 40; Start 01/30/17 at 09:00 Sodium Chloride (NS Flush) 2 ml UNSCH PRN IVF FLUSH AFTER USING IV ACCESS; Start 01/30/17 at 01:15 Dextrose (D50w (Vial) Inj) 50 ml UNSCH PRN IV HYPOGLYCEMIA-SEE COMMENTS; Start 01/30/17 at 03:30; Stop 01/30/17 at 12:02; Status DC Glucagon (Glucagon Inj) 1 mg STAT PRN IM HYPOGLYCEMIA-SEE COMMENTS; Start 01/30 at 03:30; Stop 01/30/17 at 12:01; Status DC Sodium Chloride 1,000 ml @ 999 mls/hr BOLUS ONCE IV Last administered on 01/30 04:06; Start 01/30/17 at 04:00; Stop 01/30/17 at 05:00; Status DC Insulin Human Regular (NovoLIN R INJ) 10 units UNSCH X1 PRN IV PUSH BS>350 Last administered on 01/30/17 04:06; Start 01/30/17 at 04:00; Stop 01/30/17 at 04:30; Status DC Lorazepam (Ativan Inj) 1 mg ONCE ONCE IV PUSH Last administered on 01/30/17 05:24; Start 01/30/17 at 05:15; Stop 01/30/17 at 05:16; Status DC Lorazepam (Ativan Inj) 1 mg Q2H PRN IV PUSH withdrawal symptoms Last administered on 01/31/17 05:50; Start 01/30/17 at 04:45 Insulin Human Isoph/Insulin Regular (NovoLIN 70/30 INJ) 15 units BID@08,17 SQ Last administered on 01/30/17 17:00; Start 01/30/17 at 08:00 Nystatin (Mycostatin Liq) 5 ml QID SWISH-SWAL Last administered on 01/30/17 21:40; Start 01/30/17 at 09:00 Nystatin (Mycostatin Liq) 5 ml ONCE ONCE SWISH-SWAL Last administered on 01/30 05:23; Start 01/30/17 at 04:45; Stop 01/30/17 at 04:46; Status DC Enoxaparin Sodium (Lovenox Inj) 40 mg Q24H SQ Last administered on 01/31/17 05 :50; Start 01/30/17 at 06:00 Potassium Chloride (KCl) 30 meq ONCE ONCE PO Last administered on 01/30/17 08 :48; Start 01/30/17 at 09:00; Stop 01/30/17 at 09:01; Status DC Dextrose (D50w (Vial) Inj) 50 ml UNSCH PRN IV HYPOGLYCEMIA-SEE COMMENTS; Start 01/30/17 at 11:45 Glucagon (Glucagon Inj) 1 mg UNSCH PRN OTHER HYPOGLYCEMIA-SEE COMMENTS; Start 01/30/17 at 11:45 Insulin Aspart (NovoLOG SUPPLEMENTAL SCALE) 1 ACHS SLIDING SCALE SQ Last administered on 01/31/17 05:50; Start 01/30/17 at 16:00 Acetaminophen (Tylenol) 650 mg Q4H PRN PO FEVER/PAIN 1-5; Start 01/30/17 at 12: 30 Acetaminophen/ Hydrocodone Bitart ([place] 5-325 Mg) 1 tab Q6H PRN PO PAIN 6-10 Last administered on 01/30/17 21:40; Start 01/30/17 at 12:30 Phenol (Chloraseptic [place]) 2 spray Q4HR PRN OROPHARYNG SORE THROAT Last administered on 01/30/17 14:53; Start 01/30/17 at 12:30 Lorazepam (Ativan Inj) 1 mg ONCE ONCE IV PUSH Last administered on 01/30/17 22:32; Start 01/30/17 at 22:30; Stop 01/30/17 at 22:31; Status DC Haloperidol Lactate (Haldol Inj) 2 mg ONCE ONCE IV PUSH Last administered on 22:32; Start 01/30/17 at 22:30; Stop 01/30/17 at 22:31; Status DC A/P Assessment and Plan A/P Uncontrolled diabetes mellitus-overall improved. Hyperosmolar Hyperglycemia - IVF - increase Insulin 70/30 to 18 units subq BID - 1800 kcal ADA diet - continue accu-check with SSI - will monitor and adjust the regimen as needed. Hyponatremia- improved- will monitor Hypokalemia; will replace and monitor. Thrush - Nystatin 5cc swish and swallow QID Agitation/History of benzodiazepine withdrawal - continue prn Ativan Bipolar disorder with suicidal ideation - sitter at bedside - consulted psychiatry - assistance appreciated -started on queen act. DVT prophylaxis - Lovenox 40 mg subq daily dc telemetry. Discharge Planning dc planning within the next 24 hrs - pending psych follow-up and recommendations. Keeley Ahn MD Jan 31, 2017 08:42
[2017-01-31] MEDS ORDERED: POTASSIUM CHLORIDE 10 MEQ CONTROLLED RELEASE TAB PO ONE (08:45)
[2017-01-31] MEDS: SODIUM CHLOR 0.9% 1000 ML INJ 1,000 ML IV SCH ×3 (09:00→20:24)
[2017-01-31] MEDS: NYSTATIN SUSP 500,000 U/5 ML CUP SWISH-SWAL SCH ×4 (09:59→21:49)
[2017-01-31] MEDS: ACETAMINOPHEN/HYDROcodone 325 MG/5 MG TAB PO PRN ×2 (09:59→16:58)
[2017-01-31] MEDS: SODIUM CHLORIDE 0.9% FLUSH 10 ML FLUSH IV FLUSH SCH ×2 (10:00→21:50)
[2017-01-31] MEDS ORDERED: LORazepam 2 MG/ML VIAL IM PRN (15:30)
[2017-01-31] MEDS ORDERED: HALOPERIDOL LACTATE 5 MG/ML AMP IM ONE (20:30)
[2017-01-31] MEDS ORDERED: HALOPERIDOL LACTATE 5 MG/ML AMP IV PUSH ONE (20:30)
[2017-02-01] MEDS: ACETAMINOPHEN/HYDROcodone 325 MG/5 MG TAB PO PRN ×2 (00:04→05:32)
[2017-02-01] MEDS: LORazepam 2 MG/ML VIAL IV PUSH PRN ×4 (00:04→10:01)
[2017-02-01] MEDS: SODIUM CHLOR 0.9% 1000 ML INJ 1,000 ML IV SCH ×2 (02:19→10:09)
[2017-02-01 04:00] VITALS: BP 116/70; PULSE 64; RESP 17; TEMP 97.6; O2SAT 98
[2017-02-01] MEDS: ENOXAPARIN SODIUM 40 MG/0.4 ML SYRINGE SQ SCH (05:31)
[2017-02-01] MEDS: INSULIN ASPART SUPPLEMENTAL SCALE SQ SCH (06:29)
[2017-02-01 07:25] LABS: BICARBONATE 18.4 MEQ/L (21.0-32.0)
[2017-02-01 08:00] VITALS: BP 109/62; PULSE 74; RESP 20; TEMP 97.8; O2SAT 98
[2017-02-01] MEDS: SODIUM CHLORIDE 0.9% FLUSH 10 ML FLUSH IV FLUSH SCH (09:00)
[2017-02-01] MEDS: NYSTATIN SUSP 500,000 U/5 ML CUP SWISH-SWAL SCH (10:00)
[2017-02-01] MEDS: INSULIN HUMAN NPH/R 70/30 1,000 UNITS/10 ML VIAL SQ SCH (10:03)
--- NOTE | 2017-02-01 10:57 | HHI.PR ---
Subjective Remarks f/u;uncontrolled diabetes looks and feels better today. blood sugar trend noted. denies pain or new complaints. Objective Vitals Vital Signs Date Time Temp Pulse Resp B/P (MAP) Pulse Ox O2 Delivery O2 Flow Rate FiO2 02/01/17 08:00 97.8 74 20 109/62 (78) 98 02/01/17 06:25 20 02/01/17 04:00 97.6 64 17 116/70 (85) 98 01/31/17 23:00 98.8 66 17 106/61 (76) 97 01/31/17 19:45 98.6 58 17 122/68 (86) 97 I/O 01/31/17 01/31/17 01/31/17 02/01/17 02/01/17 02/01/17 06:59 14:59 22:59 06:59 14:59 22:59 Intake Total 2270 ml 240 ml Output Total 2000 ml Balance 270 ml 240 ml Intake Oral 720 ml 240 ml IV Total 1550 ml Output Urine Total 2000 ml # Voids 3 # Bowel Movements 3 Result Diagram: 01/31/17 0510 02/01/17 0534 Imaging Last Impressions Abdomen/Pelvis CT 01/30/17 0000 Signed Impressions: Service Date/Time: January 01:26 - CONCLUSION: 1. Tiny nonobstructing calculi lower pole right kidney. No acute findings. Negative for obstructive uropathy. Rell Blankenship MD Chest X-Ray 01/29/17 2301 Signed Impressions: Service Date/Time: Sunday, January 29, 2017 23:45 - CONCLUSION: No acute disease. Right clavicle fracture noted with nonunion Rell Blankenship MD Objective Remarks GENERAL: This is a well-nourished, well-developed patient, in no apparent distress. CARDIOVASCULAR: Regular rate and regular rhythm without murmurs, gallops, or rubs. RESPIRATORY: Clear to auscultation. Breath sounds equal bilaterally. No wheezes , rales, or rhonchi. GASTROINTESTINAL: Abdomen soft, non-tender, nondistended. Normal, active bowel sounds MUSCULOSKELETAL: Extremities without clubbing, cyanosis, or edema. NEURO: Alert & Oriented x4 to person, place, time, situation. Moves all ext x4 Procedures none Medications and IVs Current Medications Sodium Chloride 1,000 ml @ 2,000 mls/hr Q30M ONCE IV Last administered on 01/29 23:49; Start 01/29/17 at 23:31; Stop 01/30/17 at 00:00; Status DC Sodium Chloride (NS Flush) 2 ml UNSCH PRN IVF FLUSH AFTER USING IV ACCESS; Start 01/29/17 at 23:15; Stop 01/30/17 at 00:38; Status DC Insulin Human Regular (NovoLIN R INJ) 6 units ONCE ONCE IV PUSH Last administered on 01/29/17 23:48; Start 01/29/17 at 23:15; Stop 01/29/17 at 23:16 ; Status DC Sodium Chloride (NS Flush) 2 ml UNSCH PRN IV FLUSH FLUSH AFTER USING IV ACCESS ; Start 01/30/17 at 00:30; Stop 01/30/17 at 01:05; Status DC Sodium Chloride (NS Flush) 2 ml BID IV FLUSH ; Start 01/30/17 at 09:00; Stop at 09:00; Status DC Naloxone HCl (Narcan Inj) 0.4 mg UNSCH PRN IV SEE LABEL COMMENTS; Start at 00:30 Sodium Chloride 1,000 ml @ 125 mls/hr Q8H IV Last administered on 02/01/17 10 :09; Start 01/30/17 at 00:45 Sodium Chloride (NS Flush) 2 ml BID IV FLUSH Last administered on 01/31/17 21: 50; Start 01/30/17 at 09:00 Sodium Chloride (NS Flush) 2 ml UNSCH PRN IVF FLUSH AFTER USING IV ACCESS; Start 01/30/17 at 01:15 Dextrose (D50w (Vial) Inj) 50 ml UNSCH PRN IV HYPOGLYCEMIA-SEE COMMENTS; Start 01/30/17 at 03:30; Stop 01/30/17 at 12:02; Status DC Glucagon (Glucagon Inj) 1 mg STAT PRN IM HYPOGLYCEMIA-SEE COMMENTS; Start 01/30 at 03:30; Stop 01/30/17 at 12:01; Status DC Sodium Chloride 1,000 ml @ 999 mls/hr BOLUS ONCE IV Last administered on 01/30 04:06; Start 01/30/17 at 04:00; Stop 01/30/17 at 05:00; Status DC Insulin Human Regular (NovoLIN R INJ) 10 units UNSCH X1 PRN IV PUSH BS>350 Last administered on 01/30/17 04:06; Start 01/30/17 at 04:00; Stop 01/30/17 at 04:30; Status DC Lorazepam (Ativan Inj) 1 mg ONCE ONCE IV PUSH Last administered on 01/30/17 05:24; Start 01/30/17 at 05:15; Stop 01/30/17 at 05:16; Status DC Lorazepam (Ativan Inj) 1 mg Q2H PRN IV PUSH withdrawal symptoms Last administered on 02/01/17 10:01; Start 01/30/17 at 04:45 Insulin Human Isoph/Insulin Regular (NovoLIN 70/30 INJ) 15 units BID@08,17 SQ Last administered on 01/31/17 08:00; Start 01/30/17 at 08:00; Stop 01/31/17 at 08:36; Status DC Nystatin (Mycostatin Liq) 5 ml QID SWISH-SWAL Last administered on 02/01/17 10:00; Start 01/30/17 at 09:00 Nystatin (Mycostatin Liq) 5 ml ONCE ONCE SWISH-SWAL Last administered on 01/30 05:23; Start 01/30/17 at 04:45; Stop 01/30/17 at 04:46; Status DC Enoxaparin Sodium (Lovenox Inj) 40 mg Q24H SQ Last administered on 02/01/17 05 :31; Start 01/30/17 at 06:00 Potassium Chloride (KCl) 30 meq ONCE ONCE PO Last administered on 01/30/17 08 :48; Start 01/30/17 at 09:00; Stop 01/30/17 at 09:01; Status DC Dextrose (D50w (Vial) Inj) 50 ml UNSCH PRN IV HYPOGLYCEMIA-SEE COMMENTS; Start 01/30/17 at 11:45 Glucagon (Glucagon Inj) 1 mg UNSCH PRN OTHER HYPOGLYCEMIA-SEE COMMENTS; Start 01/30/17 at 11:45 Insulin Aspart (NovoLOG SUPPLEMENTAL SCALE) 1 ACHS SLIDING SCALE SQ Last administered on 02/01/17 06:29; Start 01/30/17 at 16:00 Acetaminophen (Tylenol) 650 mg Q4H PRN PO FEVER/PAIN 1-5 Last administered on 13:57; Start 01/30/17 at 12:30 Acetaminophen/ Hydrocodone Bitart ([employer] 5-325 Mg) 1 tab Q6H PRN PO PAIN 6-10 Last administered on 02/01/17 05:32; Start 01/30/17 at 12:30 Phenol (Chloraseptic [place]) 2 spray Q4HR PRN OROPHARYNG SORE THROAT Last administered on 01/30/17 14:53; Start 01/30/17 at 12:30 Lorazepam (Ativan Inj) 1 mg ONCE ONCE IV PUSH Last administered on 01/30/17 22:32; Start 01/30/17 at 22:30; Stop 01/30/17 at 22:31; Status DC Haloperidol Lactate (Haldol Inj) 2 mg ONCE ONCE IV PUSH Last administered on 22:32; Start 01/30/17 at 22:30; Stop 01/30/17 at 22:31; Status DC Insulin Human Isoph/Insulin Regular (NovoLIN 70/30 INJ) 18 units BID@08,17 SQ Last administered on 02/01/17 10:03; Start 01/31/17 at 17:00 Potassium Chloride (KCl) 30 meq ONCE ONCE PO Last administered on 01/31/17 10 :00; Start 01/31/17 at 08:45; Stop 01/31/17 at 09:06; Status DC Lorazepam (Ativan Inj) 1 mg Q4H PRN IM AGITATION Last administered on 15:41; Start 01/31/17 at 15:30 Haloperidol Lactate (Haldol Inj) 2 mg ONCE ONCE IM ; Start 01/31/17 at 20:30; Stop 01/31/17 at 20:41; Status DC Haloperidol Lactate (Haldol Inj) 2 mg ONCE ONCE IV PUSH ; Start 01/31/17 at 20: 30; Stop 01/31/17 at 20:41; Status DC A/P Assessment and Plan A/P Uncontrolled diabetes mellitus-overall improved. Hyperosmolar Hyperglycemia - IVF - increase Insulin 70/30 to 18 units subq BID - 1800 kcal ADA diet - continue accu-check with SSI - will monitor and adjust the regimen as needed. Hyponatremia- improved- will monitor Hypokalemia;replaced. Thrush - Nystatin 5cc swish and swallow QID Agitation/History of benzodiazepine withdrawal - continue prn Ativan Bipolar disorder with suicidal ideation- now with no suicidal thoughts- -d/w and cleared for discharge. DVT prophylaxis - Lovenox 40 mg subq daily Discharge Planning dd/w ; patient was cleared for discharge to home. queen act will be lifted. f/u; pcp and psych. see med list. d/w the patient. Keeley Ahn MD Feb 01, 2017 10:57
[2017-02-01] MEDS ORDERED: LANTUS2P SQ (10:59)
--- NOTE | 2017-02-01 11:01 | HHI.DS ---
Discharge Summary Admission Date Jan 30, 2017 at 01:03 Discharge Date: Feb 01, 2017 Admitting Diagnosis hyperosmolar-hyperglycemia;dehydration . (1) Uncontrolled diabetes mellitus ICD Code: E11.65 - Type 2 diabetes mellitus with hyperglycemia Diagnosis: Principal Status: Acute (2) Suicidal ideation ICD Code: R45.851 - Suicidal ideations Diagnosis: Principal Procedures none Brief History - From Admission Written by Perla Pederson, acting as scribe for Dr. Forrester on 01/30/17 at 04:16. The patient reports that he has been feeling weak, fatigued, nauseated, vomiting , fever of 101 at home. 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 CBC/BMP: 01/31/17 0510 02/01/17 0534 Significant Findings Laboratory Tests Test 01/29/17 23:30 01/30/17 01:45 01/30/17 05:20 01/31/17 05:10 White Blood Count 15.9 TH/MM3 (4.0-11.0) 11.7 TH/MM3 (4.0-11.0) Neutrophils (%) (Auto) 74.2 % (16.0-70.0) Neutrophils # (Auto) 11.8 TH/MM3 (1.8-7.7) Monocytes # (Auto) 1.2 TH/MM3 (0-0.9) Urine Glucose (UA) 1000 mg/dL (NEG) Urine Ketones TRACE mg/dL (NEG) Creatinine 1.50 MG/DL (0.60-1.30) Random Glucose 1200 MG/DL (74-106) 779 MG/DL (74-106) 384 MG/DL (74-106) 359 MG/DL (74-106) Sodium Level 113 MEQ/L (136-145) 124 MEQ/L (136-145) 132 MEQ/L (136-145) 133 MEQ/L (136-145) Chloride Level 73 MEQ/L (98-107) 87 MEQ/L (98-107) Anion Gap 16 MEQ/L (5-15) Estimat Glomerular Filtration Rate 51 ML/MIN (>89) 69 ML/MIN (>89) Troponin I LESS THAN 0.02 NG/ML Urine Opiates Screen POS (NEG) B-Hydroxybutyrate 0.99 MMOL/L (0.00-0.39) Calcium Level 7.9 MG/DL (8.5-10.1) 7.6 MG/DL (8.5-10.1) 8.0 MG/DL (8.5-10.1) Potassium Level 3.3 MEQ/L (3.5-5.1) 3.4 MEQ/L (3.5-5.1) Red Blood Count 4.36 MIL/MM3 (4.50-5.90) Hemoglobin 12.8 GM/DL (13.0-17.0) Hematocrit 38.0 % (39.0-51.0) Test 02/01/17 05:34 Random Glucose 311 MG/DL (74-106) Calcium Level 8.2 MG/DL (8.5-10.1) Sodium Level 135 MEQ/L (136-145) Carbon Dioxide Level 18.4 MEQ/L (21.0-32.0) Imaging Last Impressions Abdomen/Pelvis CT 01/30/17 0000 Signed Impressions: Service Date/Time: January 01:26 - CONCLUSION: 1. Tiny nonobstructing calculi lower pole right kidney. No acute findings. Negative for obstructive uropathy. Rell Blankenship MD Chest X-Ray 01/29/17 2301 Signed Impressions: Service Date/Time: Sunday, January 29, 2017 23:45 - CONCLUSION: No acute disease. Right clavicle fracture noted with nonunion Rell Blankenship MD PE at Discharge GENERAL: This is a well-nourished, well-developed patient, in no apparent distress. CARDIOVASCULAR: Regular rate and regular rhythm without murmurs, gallops, or rubs. RESPIRATORY: Clear to auscultation. Breath sounds equal bilaterally. No wheezes , rales, or rhonchi. GASTROINTESTINAL: Abdomen soft, non-tender, nondistended. Normal, active bowel sounds MUSCULOSKELETAL: Extremities without clubbing, cyanosis, or edema. NEURO: Alert & Oriented x4 to person, place, time, situation. Moves all ext x4 Hospital Course Uncontrolled diabetes mellitus-overall improved. Hyperosmolar Hyperglycemia - IVF - increase Insulin 70/30 to 18 units subq BID - 1800 kcal ADA diet - continue accu-check with SSI - will monitor and adjust the regimen as needed. Hyponatremia- improved- will monitor Hypokalemia;replaced. Thrush - Nystatin 5cc swish and swallow QID Agitation/History of benzodiazepine withdrawal - continue prn Ativan Bipolar disorder with suicidal ideation - sitter at bedside - consulted psychiatry - assistance appreciated -started on queen act. DVT prophylaxis - Lovenox 40 mg subq daily Pt Condition on Discharge: Fair Discharge Disposition: Discharge Home Discharge Time: <= 30 minutes Discharge Instructions DIET: Follow Instructions for: Heart Healthy Diet, Diabetic Diet Activities you can perform: Regular-No Restrictions Follow up Referrals: PCP Follow-up Psychiatry Adult Changed Medications: Insulin Glargine Inj (Lantus Inj) 1,000 Unit/10 Ml Vial 20 UNITS SQ BID for Blood Sugar Management for 30 Days, VIAL 0 Refills (Changed from: 80 UNITS) Continued Medications: Insulin Human Regular Inj (Novolin R Inj) 1,000 Unit/10 Ml Vial 0 SQ DIRECTED for Blood Sugar Management, #10 ML 0 Refills Sliding Scale As Directed. Metformin (Metformin) 1,000 Mg Tab 1000 MG PO BIDPC for Blood Sugar Management, #60 TAB 0 Refills With meals Keeley Ahn MD Feb 01, 2017 11:01
[2017-02-01] MEDS ORDERED: NOVORP2 SQ (17:24)
[2017-02-01] MEDS ORDERED: METF1000 PO (17:24)
== END 2017-02-01 12:00 | disposition home or self-care (01) | DRG 637 ==
LOC: NEPC 22:29 → NEDA 01-30 01:03 → NEDH 01-30 06:10 → HCIS 01-30 09:42 → N04B 01-31 13:09
PROVIDERS: ADMIT Internal Medicine; ATTEND Internal Medicine
DX: E11.65 Type 2 diabetes mellitus with hyperglycemia (principal); E11.00 Type 2 diabetes mellitus with hyperosmolarity without nonketotic hyperglycemic-hyperosmolar coma (NKHHC); B37.0 Candidal stomatitis; R45.851 Suicidal ideations; E87.1 Hypo-osmolality and hyponatremia; Z79.4 Long term (current) use of insulin; Z79.84 Long term (current) use of oral hypoglycemic drugs; F31.9 Bipolar disorder, unspecified; E86.0 Dehydration; R41.89 Other symptoms and signs involving cognitive functions and awareness; K59.00 Constipation, unspecified; I10 Essential (primary) hypertension; Z87.442 Personal history of urinary calculi; F17.210 Nicotine dependence, cigarettes, uncomplicated; E87.6 Hypokalemia
CPT/HCPCS: 71010; 74176; 76937; 80048; 80053; 80307; 81001; 82010; 82948; 83605; 83690; 83735; 84484; 85025; 87040; 93005; 96361; 96374; J1630; J1650; J1815; J2060; J7030

== ENCOUNTER 2017-04-26 19:01 | Inpatient (IN) | payer SELFPAY ==
[~2017-04-26] VITALS: Ht 175.3 cm; Wt 57.0 kg
[~2017-04-26 19:01] MED LIST changes: -INSU-118 SQ; +LANTUS2P SQ; -LISI-357 PO; +METF1000 PO; -METF500 PO; -NOVO7030P2 SQ; +NOVORP2 SQ; -NRSS SQ
[2017-04-26 19:03] VITALS: BP 136/83; PULSE 91; RESP 16; TEMP 98.8; O2SAT 97
[2017-04-26] MEDS ORDERED: SODIUM CHLOR 0.9% 1000 ML INJ 1,000 ML IV SCH ×3 (19:22→20:32)
--- NOTE | 2017-04-26 19:27 | PD ---
HPI Chief Complaint: Skin Problem Time Seen by Provider: 19:15 Travel History International Travel<30 days: No Contact w/Intl Traveler<30days: No Traveled to known affect area: No History of Present Illness HPI This is a 41-year-old male with history of diabetes, IV drug abuse who presents for evaluation of an area of painful skin redness on the left forearm. He first noticed 10 days ago. Has progressed since then which prompted evaluation. He reports that there was no abscess which spontaneously burst this morning. Pain is a throbbing pain, constant, worse with palpation. He reports increased fatigue. Denies fevers, chills, chest pain, shortness of breath, nausea, vomiting. He reports noncompliance with his insulin regimen. He also reports a painful mouth for the past several days as well. No other complaints. PFSH Past Medical History Bipolar Disorder: Yes Depression: Yes Cardiovascular Problems: Yes (HTN) Diabetes: Yes Patient Takes Glucophage: Yes Diminished Hearing: Yes (RIGHT EAR) Hypertension: Yes Immunizations Current: Yes Past Surgical History Appendectomy: Yes Genitourinary Surgery: Yes (part of right testicle removed ) Social History Alcohol Use: No (DENIES) Tobacco Use: Yes (/ PPD) Substance Use: Yes (OPIATES, "ANYTHING I CAN GET") Allergies-Medications (Allergen,Severity, Reaction): Coded Allergies: penicillin G (Verified Allergy, Unknown, 04/26/17) Reported Meds & Prescriptions Reported Meds & Active Scripts Active Novolin R Inj (Insulin Human Regular) 1,000 Unit/10 Ml Vial 1 Unit SQ DIRECTED 30 Days Sliding Scale As Directed. accu-check AC/HS with regular insulin coverage; 150-200 two units 201-250 four units 251-300 six units 301-350 eight units 350-400 ten units inform PCP if < 70 or > 400. Metformin (Metformin HCl) 1,000 Mg Tab 1,000 Mg PO BIDPC 30 Days With meals Lantus Inj (Insulin Glargine) 1,000 Unit/10 Ml Vial 20 Units SQ BID 30 Days Review of Systems Except as stated in HPI: all other systems reviewed are Neg Physical Exam Narrative GENERAL: Well-developed well-nourished male in no acute distress SKIN: Warm and dry. Large area of erythema and induration to the left proximal forearm. There is a 1 cm open wound that is draining purulent drainage upon palpation. HEAD: Atraumatic. Normocephalic. EYES: Pupils equal and round. No scleral icterus. No injection or drainage. ENT: No nasal bleeding or discharge. Mucous membranes pink and moist. Thrush noted in the mouth. NECK: Trachea midline. No JVD. CARDIOVASCULAR: Regular rate and rhythm. No murmur appreciated. RESPIRATORY: No accessory muscle use. Clear to auscultation. Breath sounds equal bilaterally. GASTROINTESTINAL: Abdomen soft, non-tender, nondistended. Hepatic and splenic margins not palpable. MUSCULOSKELETAL: Skin as noted above. NEUROLOGICAL: Awake and alert. No obvious cranial nerve deficits. Motor grossly within normal limits. Normal speech. PSYCHIATRIC: Appropriate mood and affect; insight and judgment normal. Data Data Last Documented VS Vital Signs Date Time Temp Pulse Resp B/P (MAP) Pulse Ox O2 Delivery O2 Flow Rate FiO2 04/26/17 19:49 79 18 106/67 (80) 95 Room Air 04/26/17 19:03 98.8 Orders Orders Sepsis Workup Initiated (04/26/17 ) Complete Blood Count With Diff (04/26/17 19:22) Comprehensive Metabolic Panel (04/26/17 19:22) Prothrombin Time / Inr (Pt) (04/26/17 19:22) Act Partial Throm Time (Ptt) (04/26/17 19:22) Blood Culture (04/26/17 19:22) Wound Culture And Gram Stain (04/26/17 19:22) Lactic Acid Sepsis Protocol (04/26/17 19:22) Sodium Chlor 0.9% 1000 Ml Inj (Ns 1000 M (04/26/17 19:22) Sodium Chlor 0.9% 1000 Ml Inj (Ns 1000 M (04/26/17 19:22) Iv Access Insert/Monitor (04/26/17 19:22) Vancomycin Inj (Vancomycin Inj) (04/26/17 19:30) Vancomycin Inj (Vancomycin Inj) (04/26/17 19:45) Beta Hydroxybutyrate (Acetone) (04/26/17 19:33) Nystatin Liq (Mycostatin Liq) (04/26/17 19:45) Insulin Human Regular Inj (Novolin R Inj (04/26/17 20:15) Ob/Psych Drug Screen, Urine (04/26/17 20:29) Urinalysis - C+S If Indicated (04/26/17 20:29) Admit Order (Ed Use Only) (04/26/17 20:30) Labs Laboratory Tests Test 04/26/17 19:30 White Blood Count 16.0 TH/MM3 Red Blood Count 4.54 MIL/MM3 Hemoglobin 13.7 GM/DL Hematocrit 42.3 % Mean Corpuscular Volume 93.3 FL Mean Corpuscular Hemoglobin 30.3 PG Mean Corpuscular Hemoglobin Concent 32.4 % Red Cell Distribution Width 14.2 % Platelet Count 419 TH/MM3 Mean Platelet Volume 9.4 FL Neutrophils (%) (Auto) 79.9 % Lymphocytes (%) (Auto) 11.4 % Monocytes (%) (Auto) 8.2 % Eosinophils (%) (Auto) 0.1 % Basophils (%) (Auto) 0.4 % Neutrophils # (Auto) 12.8 TH/MM3 Lymphocytes # (Auto) 1.8 TH/MM3 Monocytes # (Auto) 1.3 TH/MM3 Eosinophils # (Auto) 0.0 TH/MM3 Basophils # (Auto) 0.1 TH/MM3 CBC Comment DIFF FINAL Differential Comment Blood Urea Nitrogen 15 MG/DL Creatinine 1.31 MG/DL Random Glucose 1217 MG/DL Total Protein 8.1 GM/DL Albumin 3.1 GM/DL Calcium Level 8.6 MG/DL Alkaline Phosphatase 136 U/L Aspartate Amino Transf (AST/SGOT) 39 U/L Alanine Aminotransferase (ALT/SGPT) 34 U/L Total Bilirubin 0.8 MG/DL Sodium Level 111 MEQ/L Potassium Level 4.9 MEQ/L Chloride Level 74 MEQ/L Carbon Dioxide Level 25.8 MEQ/L Anion Gap 11 MEQ/L Estimat Glomerular Filtration Rate 60 ML/MIN Lactic Acid Level 1.8 mmol/L [facility] Medical Decision Making Medical Screen Exam Complete: Yes Emergency Medical Condition: Yes Medical Record Reviewed: Yes Differential Diagnosis Cellulitis, abscess, necrotizing fasciitis, erysipelas, sepsis Narrative Course Examination is consistent with cellulitis, draining abscess left forearm an IV drug user. He also has thrush. No history of HIV. Plan is for lab work, blood cultures, wound culture. He will be given oral nystatin, vancomycin. The patient's lab result for leukocytosis with a WBC count of 16, a random glucose level of 1217 with a resultant hyponatremia. The patient will be given IV insulin bolus. He will be admitted. Diagnosis Primary Impression: Cellulitis of left arm Additional Impressions: Hyperglycemia Oral thrush Leukocytosis Admitting Information Admitting Physician Requests: Admit Ke Garcia Apr 26, 2017 19:27
[2017-04-26] MEDS ORDERED: VANCOMYCIN INJ 1,000 MG in SODIUM CHLOR 0.9% 250 ML INJ 250 ML IV ONE ×2 (19:30→19:45)
[2017-04-26] MEDS ORDERED: NYSTATIN SUSP 500,000 U/5 ML CUP SWISH-SWAL ONE (19:45)
[2017-04-26 19:49] VITALS: BP 106/67; PULSE 79; RESP 18; O2SAT 95
[2017-04-26 19:55] LABS: AUTOMATED NEUTROPHIL # 12.8 TH/MM3 (1.8-7.7); BASOPHIL # 0.1 TH/MM3 (0-0.2); BASOPHIL % 0.4 % (0.0-2.0); EOSINOPHIL % 0.1 % (0.0-4.0); HEMATOCRIT 42.3 % (39.0-51.0); HEMO FLAGS DIFF FINAL; LYMPH % 11.4 % (9.0-44.0); LYMPHOCYTE # 1.8 TH/MM3 (1.0-4.8); MEAN CELL VOLUME 93.3 FL (80.0-100.0); MEAN CORPUSCULAR HEMOGLOBIN 30.3 PG (27.0-34.0); MEAN CORPUSCULAR HGB CONC 32.4 % (32.0-36.0); MONO % 8.2 % (0.0-8.0); NEUT % 79.9 % (16.0-70.0); PLATELET COUNT 419 TH/MM3 (150-450); RED BLOOD COUNT 4.54 MIL/MM3 (4.50-5.90); RED CELL DISTRIBUTION WIDTH 14.2 % (11.6-17.2)
[2017-04-26 20:07] LABS: ALKALINE PHOSPHATASE 136 U/L (45-117); ALT (GPT) 34 U/L (12-78); ANION GAP 11 MEQ/L (5-15); AST (GOT) 39 U/L (15-37); BICARBONATE 25.8 MEQ/L (21.0-32.0); BLOOD UREA NITROGEN 15 MG/DL (7-18); CHLORIDE 74 MEQ/L (98-107); GLOMERULAR FILTRATION RATE 60 ML/MIN (>89); POTASSIUM 4.9 MEQ/L (3.5-5.1); TOTAL BILIRUBIN ADULT 0.8 MG/DL (0.2-1.0)
[2017-04-26 20:10] LABS: SODIUM (NA) 111 MEQ/L (136-145)
[2017-04-26] MEDS ORDERED: INSULIN HUMAN REGULAR 1,000 UNITS/10 ML VIAL IV PUSH ONE (20:15)
--- NOTE | 2017-04-26 20:37 | HHI.HP ---
HPI Service Family Medicine Primary Care Physician No Primary Care Physician Admission Diagnosis cellulitis, thrush, hyperglycemia, leukocytosis Diagnoses: International Travel<30 Days: No Contact w/Intl Traveler<30days: No Known Affected Area: No History of Present Illness Patient is a 41-year-old male with a past medical history of uncontrolled diabetes, depression, and IV drug use that presents to the [facility] ED with a chief complaint of a painful abscess and cellulitis on his left forearm which began 10 days ago. He also complains of thrush infection in his mouth that is causing him a lot of pain. Patient states that he has not taken any medications except Tylenol or antibiotics because he does not have insurance. He thinks he has a fever but did not measure his temperature. He is currently homeless. He was at a substance abuse rehabilitation meeting today when the abscess popped and drained lots of pus. He describes the pain as 1000/ 10 in intensity. Patient last saw a doctor 3 months ago and he was admitted to the [facility] for HHS. He has not been on insulin for a while because he ran out and cannot afford the medications. (Latanya Fierro MD R2) Review of Systems Constitutional: COMPLAINS OF: Fatigue, Fever, Chills, Change in appetite, Night Sweats, DENIES: Weight loss Endocrine: COMPLAINS OF: Polydipsia, Polyuria Eyes: COMPLAINS OF: Blurred vision, Eye pain Ears, nose, mouth, throat: COMPLAINS OF: Nasal discharge, Throat pain, Running Nose, Sinus Pain Respiratory: DENIES: Cough, Shortness of breath Cardiovascular: DENIES: Chest pain, Palpitations Gastrointestinal: COMPLAINS OF: Abdominal pain, DENIES: Constipation (last BM for a few days), Diarrhea, Nausea, Vomiting Genitourinary: COMPLAINS OF: Urinary frequency, DENIES: Dysuria Musculoskeletal: COMPLAINS OF: Muscle aches Integumentary: DENIES: Pruritus, Rash Neurologic: DENIES: Headache Psychiatric: COMPLAINS OF: Anxiety, Confusion, Depression, DENIES: Suicidal Ideation, Homicidal Ideation (Latanya Fierro MD R2) Past Family Social History Past Medical History Type 2 Diabetes Mellitus - diagnosed couple of years ago Hypertension Kidney stones Seizures Bipolar disorder Possible Hepatitis C Past Surgical History Appendectomy Right femur, jaw, nose repair for fractures - reconstructive Right hydrocelectomy 08/23/14 - Dr. Sorensen Reported Medications Reported Meds & Active Scripts Active Novolin R Inj (Insulin Human Regular) 1,000 Unit/10 Ml Vial 1 Unit SQ DIRECTED 30 Days Sliding Scale As Directed. accu-check AC/HS with regular insulin coverage; 150-200 two units 201-250 four units 251-300 six units 301-350 eight units 350-400 ten units inform PCP if < 70 or > 400. Metformin (Metformin HCl) 1,000 Mg Tab 1,000 Mg PO BIDPC 30 Days With meals Lantus Inj (Insulin Glargine) 1,000 Unit/10 Ml Vial 20 Units SQ BID 30 Days (Latanya Fierro MD R2) Allergies: Coded Allergies: penicillin G (Verified Allergy, Unknown, 04/26/17) Family History -Grandfather had diabetes -Mother had a heart attack Social History -Smokes one pack per day 30 years -Denies alcohol use since he was diagnosed with diabetes 2 years ago -Multi-substance abuse disorder. Patient states that he uses heroine, cocaine, and prescription pain medications. He self medicates because he has depression and PTSD. His last use was cocaine today which he snorted. He uses IV drugs occasionally and cannot recall his last use. -He is currently homeless (Latanya Fierro MD R2) Physical Exam Vital Signs Vital Signs Date Time Temp Pulse Resp B/P (MAP) Pulse Ox O2 Delivery O2 Flow Rate FiO2 04/26/17 19:49 79 18 106/67 (80) 95 Room Air 04/26/17 19:03 98.8 91 16 136/83 (100) 97 Room Air Physical Exam GENERAL: This is a thin, mildly cachectic, well-developed patient, in no apparent distress. SKIN: At least 10 cm x 10 cm area of erythema and induration on the left proximal forearm that extends slightly to the left upper arm with a 1 cm open wound that is intermittently draining purulent fluid. IV track hankins observed on right forearm. No Osler's nodes identified HEAD: Atraumatic. Normocephalic. No temporal or scalp tenderness. EYES: Pupils equal round and reactive. Extraocular motions intact. No scleral icterus. No injection or drainage. ENT: Nose without bleeding, purulent drainage or septal hematoma. Moist mucous membranes. Widespread thrush in the oropharynx. Uvula midline. Airway patent. NECK: Trachea midline. No JVD or lymphadenopathy. Supple, nontender, no meningeal signs. CARDIOVASCULAR: Regular rate and rhythm without murmurs, gallops, or rubs. RESPIRATORY: Clear to auscultation. Breath sounds equal bilaterally. No wheezes , rales, or rhonchi. GASTROINTESTINAL: Abdomen soft, tender to palpation in the lower abdomen, nondistended. No hepato-splenomegaly, or palpable masses. No guarding. MUSCULOSKELETAL: Extremities without clubbing, cyanosis, or edema. No joint tenderness, effusion, or edema noted. No calf tenderness. NEUROLOGICAL: Awake and alert. Cranial nerves II through XII intact. Motor and sensory grossly within normal limits. 4 out of 5 muscle strength in all muscle groups due to weakness. Normal speech. Laboratory Laboratory Tests Test 04/26/17 19:30 White Blood Count 16.0 Red Blood Count 4.54 Hemoglobin 13.7 Hematocrit 42.3 Mean Corpuscular Volume 93.3 Mean Corpuscular Hemoglobin 30.3 Mean Corpuscular Hemoglobin Concent 32.4 Red Cell Distribution Width 14.2 Platelet Count 419 Mean Platelet Volume 9.4 Neutrophils (%) (Auto) 79.9 Lymphocytes (%) (Auto) 11.4 Monocytes (%) (Auto) 8.2 Eosinophils (%) (Auto) 0.1 Basophils (%) (Auto) 0.4 Neutrophils # (Auto) 12.8 Lymphocytes # (Auto) 1.8 Monocytes # (Auto) 1.3 Eosinophils # (Auto) 0.0 Basophils # (Auto) 0.1 CBC Comment DIFF FINAL Differential Comment Blood Urea Nitrogen 15 Creatinine 1.31 Random Glucose 1217 Total Protein 8.1 Albumin 3.1 Calcium Level 8.6 Alkaline Phosphatase 136 Aspartate Amino Transf (AST/SGOT) 39 Alanine Aminotransferase (ALT/SGPT) 34 Total Bilirubin 0.8 Sodium Level 111 Potassium Level 4.9 Chloride Level 74 Carbon Dioxide Level 25.8 Anion Gap 11 Estimat Glomerular Filtration Rate 60 Lactic Acid Level 1.8 Date/Time Source Procedure Growth Status 04/26/17 19:30 Wound Arm Gram Stain Pending Received 04/26/17 19:30 Wound Arm Wound Culture Pending Received (Eko,Latanya Mcclure MD R2) Result Diagram: 04/26/17 19304/26/17 1930 Imaging Last 72 hours Impressions Upper Extremity Ultrasound 04/26/17 0000 Signed Impressions: Service Date/Time: Wednesday, April 26, 2017 21:47 - CONCLUSION: Broad area of forearm cellulitis but no drainable abscess. Isaias Gillespie MD Chest X-Ray 04/26/17 0000 Signed Impressions: Service Date/Time: Wednesday, April 26, 2017 21:40 - CONCLUSION: No evidence of acute cardiopulmonary disease. Isaias Gillespie MD Course In the ED, patient was found to have a glucose of 1217 with a normal anion gap of 11 for which he received 9 units of regular insulin IV bolus. He also was administered 2 normal saline boluses as well as 1 g of vancomycin IV. (Eko,Latanya Mcclure MD R2) Caprini VTE Risk Assessment Caprini VTE Risk Assessment: Mod/High Risk (score >= 2) Caprini Risk Assessment Model Point Value = 1 Point Value = 2 Point Value = 3 Point Value = 5 Age 41-60 Minor surgery BMI > 25 kg/m2 Swollen legs Varicose veins or History of unexplained or recurrent spontaneous Oral contraceptives or hormone replacement Sepsis (< 1 month) Serious lung disease, including pneumonia (< 1 month) Abnormal pulmonary function Acute myocardial infarction Congestive heart failure (< 1 month) History of inflammatory bowel disease Medical patient at bed rest Age 61-74 Arthroscopic surgery Major open surgery (> 45 min) Laparoscopic surgery (> 45 min) Malignancy Confined to bed (> 72 hours) Immobilizing plaster cast Central venous access Age >= 75 History of VTE Family history of VTE Factor V Leiden Prothrombin [id number] Lupus anticoagulant Anticardiolipin antibodies Elevated serum homocysteine Heparin-induced thrombocytopenia Other congenital or acquired thrombophilia Stroke (< 1 month) Elective arthroplasty Hip, pelvis, or leg fracture Acute spinal cord injury (< 1 month) Prophylaxis Regimen Total Risk Factor Score Risk Level Prophylaxis Regimen 0-1 Low Early ambulation 2 Moderate Order ONE of the following: *Sequential Compression Device (SCD) *Heparin 5000 units SQ BID 3-4 Higher Order ONE of the following medications: *Heparin 5000 units SQ TID *Enoxaparin/Lovenox 40 mg SQ daily (WT < 150 kg, CrCl > 30 mL/min) *Enoxaparin/Lovenox 30 mg SQ daily (WT < 150 kg, CrCl > 10-29 mL/min) *Enoxaparin/Lovenox 30 mg SQ BID (WT < 150 kg, CrCl > 30 mL/min) AND/OR *Sequential Compression Device (SCD) 5 or more Highest Order ONE of the following medications: *Heparin 5000 units SQ TID (Preferred with Epidurals) *Enoxaparin/Lovenox 40 mg SQ daily (WT < 150 kg, CrCl > 30 mL/min) *Enoxaparin/Lovenox 30 mg SQ daily (WT < 150 kg, CrCl > 10-29 mL/min) *Enoxaparin/Lovenox 30 mg SQ BID (WT < 150 kg, CrCl > 30 mL/min) AND *Sequential Compression Device (SCD) (Latanya Fierro MD R2) Assessment and Plan Assessment and Plan 41 year old male with a past medical history of uncontrolled diabetes presents in hyperosmolar hyperglycemic state with a left arm abscess/cellulitis with no history of antibiotics. He will be admitted for management with IV fluids, insulin, and IV antibiotics for the abscess. Hand surgery has been consulted to assist with management of the left arm abscess. Code Status Full code Discussed Condition With Seen and examined with Dr. Velásquez. Will discuss with Dr. Arellano (Latanya Fierro MD R2) Attending Attestation THIS CASE WAS DISCUSSED WITH THE RESIDENT PHYSICIANS. I HAVE REVIEWED THE RECORD AND AGREE WITH THE ABOVE NOTE AND PLAN OF CARE WAS DISCUSSED. I HAVE AUTHORIZED THE ORDER FOR ADMISSION TO AN IN-PATIENT STATUS. (Sylvester Arellano MD) Problem List: (1) Uncontrolled type 2 diabetes mellitus with hyperosmolar nonketotic hyperglycemia ICD Codes: E11.00 - Type 2 diabetes mellitus with hyperosmolarity without nonketotic hyperglycemic-hyperosmolar coma ([facility]) Plan: -Serum glucose 1217 on admission -Pseudohyponatremia at 111, corrected sodium at 122.2 -Anion gap wnl at 11 on admission -Potassium within normal limits at 4.9 -ABG shows pH of 7.39, WNL -Beta hydroxybutyrate elevated at 1.57 -UA shows 1000 glucose and 10 ketones -Received 9 units regular insulin bolus in the ED and 2 normal saline 1 L boluses -Start regular insulin drip at 0.5 units per hour, titrate per protocol -Normal saline with 30 of K at 250 MLS per hour -Nothing by mouth until glucose is down to 300 mg/dL. Will reduce regular insulin infusion at that time and introduce diet -A1c pending -BMP every 2 hours -Accu-Cheks every 2 hours -Admit to ICU due to need for frequent checks (2) Abscess of arm, left ICD Codes: L02.414 - Cutaneous abscess of left upper limb Plan: -Continue vancomycin 1 g IV every 24 hours with pharmacy consult ( received one dose of vancomycin in the ED) - cover gram positives -Add Aztreonam 2 g every 8 hours IV - cover gram-negatives -Flagyl 500 mg every 6 hours IV for anaerobes -Toradol 30 mg IV every 6 hours scheduled for pain and inflammation -Ultrasound of left upper extremity reveals broad area of forearm cellulitis with no drainable abscess -Wound gram stain and culture pending -Blood cultures pending -Hand surgery consulted (3) CRISTINA (acute kidney injury) ICD Codes: N17.9 - Acute kidney failure, unspecified Plan: -Creatinine elevated at 1.31 -Baseline 0.80 on 02/01/17 -Fluids as above -Avoid nephrotoxic agents (4) Oral thrush ICD Codes: B37.0 - Candidal stomatitis Plan: -Nystatin swish and swallow -Will check HIV - patient consented (5) Multiple substance abuse ICD Codes: F19.10 - Other psychoactive substance abuse, uncomplicated Plan: -UDS positive for opiates, cocaine, and cannabinoids -Negative alcohol -High risk of withdrawal during hospitalization -Supportive care (6) Depression ICD Codes: F32.9 - Major depressive disorder, single episode, unspecified Plan: -Patient reports history of depression and PTSD -Not currently on any medications -Currently in an outpatient rehabilitation program for substance abuse -Consider psych consult if worsens during this hospitalization (7) FEN/DVT PPX/GI PPX/Nursing Orders Plan: Fluids: NS @ 250 mls/hr IV Electrolytes: Will monitor and replace as needed Nutrition: NPO DVT Prophylaxis: Heparin subcutaneous Q8h GI Prophylaxis: Not required Constipation prophylaxis: Constipation regimen PRN Medications Tylenol 650 mg by mouth every 4 hours when necessary pain 1-10 or temperature greater than 100.4F Zofran 4 mg IV push every 6 hours when necessary nausea vomiting Morphine 2 mg IV push every 3 hours when necessary breakthrough pain -Vitals Q4h -Monitor I's and O's -panel monitor with telemetry with continuous vital signs -Activity bed rest -PT to assist with ambulation -OT to evaluate -Case management consult to assist with discharge disposition (Eko,Latanya U MD R2) Physician Certification 2 Midnight Certification Type: Admission for Inpatient Services Order for Inpatient Services The services are ordered in accordance with Medicare regulations or non- Medicare payer requirements, as applicable. In the case of services not specified as inpatient-only, they are appropriately provided as inpatient services in accordance with the 2-midnight benchmark. Estimated LOS (days): 3 days is the estimated time the patient will need to remain in the hospital, assuming treatment plan goals are met and no additional complications. Post-Hospital Plan: Not yet determined (Latanya Fierro MD R2) Problem Qualifiers (1) Depression: Latanya Fierro MD R2 Apr 26, 2017 20:37 Sylvester Arellano MD Apr 27, 2017 20:34
[2017-04-26 21:23] LABS: BLOOD, URINE NEG (NEG); GLUCOSE,URINE 1000 mg/dL (NEG); KETONE, URINE 10 mg/dL (NEG); NITRITE,URINE NEG (NEG); URINE COLOR COLORLESS (YELLW/STRAW)
[2017-04-26] MEDS ORDERED: ACETAMINOPHEN 325 MG TAB PO PRN (21:30)
[2017-04-26] MEDS ORDERED: SODIUM CHLORIDE 0.9% FLUSH 10 ML FLUSH IV FLUSH PRN (21:30)
[2017-04-26] MEDS ORDERED: IBUPROFEN 400 MG TAB PO PRN (21:30)
[2017-04-26] MEDS ORDERED: SENNOSIDES 8.6 MG TAB PO PRN (21:30)
[2017-04-26] MEDS ORDERED: ONDANSETRON HCL 4 MG/2 ML VIAL IVP PRN (21:30)
[2017-04-26] MEDS ORDERED: NALOXONE HCL 0.4 MG/ML AMP IV PUSH PRN (21:30)
[2017-04-26] MEDS ORDERED: BISACODYL 10 MG SUPP RECTAL PRN (21:30)
[2017-04-26] MEDS ORDERED: KETOROLAC TROMETHAMINE 30 MG/ML (IVP) VIAL IV PUSH PRN ×2 (21:30)
[2017-04-26] MEDS ORDERED: LACTULOSE SYRUP 20 GM/30 ML CUP PO PRN (21:30)
[2017-04-26] MEDS ORDERED: DEXTROSE 50% IN WATER 50 ML VIAL(D50) IV PUSH PRN ×2 (21:30→22:00)
[2017-04-26] MEDS ORDERED: MAGNESIUM HYDROXIDE SUSP 30 ML CUP PO PRN (21:30)
[2017-04-26] MEDS ORDERED: GLUCAGON 1 MG/ML VIAL OTHER PRN (21:30)
[2017-04-26 21:55] LABS: COMMENT (UR) CULT NOT INDICATED; CULTURE IF INDICATED CULT NOT INDICATED; RBC, URINE 0-3 /hpf (0-3); WBC, URINE 0-2 /hpf (0-5)
[2017-04-26 21:56] LABS: SQUAMOUS EPITHELIAL CELL URINE 0-5 /hpf (0-5)
[2017-04-26] MEDS ORDERED: INSULIN REGULAR (IV INFUSION) 100 UNITS in SODIUM CHLORIDE 0.9% INJ 99 ML IV PRN (22:00)
[2017-04-26] MEDS ORDERED: Vancomycin Consult Pharmacy 1 EA OTHER SCH (22:00)
[2017-04-26] MEDS ORDERED: MISC INFORMATION OTHER ONE (22:00)
--- NOTE | 2017-04-26 22:00 | RADRPT ---
EXAM DATE/TIME: 04/26/2017 21:40 [facility] COMPARISON: CHEST SINGLE AP, January 29, 2017, 23:45. INDICATIONS : Cellulitis. MEDICAL HISTORY : Diabetes mellitus type II. SURGICAL HISTORY : None. ENCOUNTER: Initial ACUITY: 1 day PAIN SCORE: 0/10 LOCATION: Bilateral chest FINDINGS: A single view of the chest demonstrates the lungs to be symmetrically aerated without evidence of mas s, infiltrate or effusion. The cardiomediastinal contours are unremarkable. Nonacute right clavicle fracture again noted. CONCLUSION: No evidence of acute cardiopulmonary disease. Isaias Gillespie MD on April 26, 2017 at 21:57 Board Certified Radiologist. This report was verified electronically.
--- NOTE | 2017-04-26 22:09 | RADRPT ---
EXAM DATE/TIME: 04/26/2017 21:47 [facility] COMPARISON: No previous studies available for comparison. INDICATIONS : Abscess. MEDICAL HISTORY : Hypertension. Hearing loss. Eye pain. Blurred vision. Polyuria. Diabetes. SURGICAL HISTORY : Appendectomy. Cirumcision. Right femur surgery. Jaw surgery. Nose reconstruction. ENCOUNTER: Initial ACUITY: 1 day PAIN SCORE: 6/10 LOCATION: Left arm. AREA EVALUATED: Left forearm below elbow FINDINGS: Broad area of subcutaneous swelling, edema and hyperemia seen of the forearm.. No organized/drainable fluid collection is present. CONCLUSION: Broad area of forearm cellulitis but no drainable abscess. Isaias Gillespie MD on April 26, 2017 at 22:06 Board Certified Radiologist. This report was verified electronically.
[2017-04-26] MEDS: HEPARIN SODIUM - SQ 10,000 UNITS/ML VIAL SQ SCH (22:20)
[2017-04-26] MEDS: NYSTATIN SUSP 500,000 U/5 ML CUP SWISH-SWAL SCH (22:24)
--- NOTE | 2017-04-26 22:29 | PD ---
Physical Exam Date Seen by Provider: Apr 26, 2017 Time Seen by Provider: 20:00 Narrative I, Dr. Ramirez, have reviewed the advance practice practitioner's documentation and am in agreement, met with the patient face to face, made the diagnosis, and the medical decision making was done by me. *My assessment and Findings: Patient seen and evaluated with PA, please see PA notes for further details. Here for left elbow area kin infection, abscess which is self drained. He is diabetic and noncompliant with medications. On evaluation, the left elbow appears fairly erythematous and it appears that the abscess has self drained. He has fairly elevated blood sugars on exam. He has no other focal infections at this time. Laboratory Tests Test 04/26/17 19:30 White Blood Count 16.0 TH/MM3 (4.0-11.0) Neutrophils (%) (Auto) 79.9 % (16.0-70.0) Monocytes (%) (Auto) 8.2 % (0.0-8.0) Neutrophils # (Auto) 12.8 TH/MM3 (1.8-7.7) Monocytes # (Auto) 1.3 TH/MM3 (0-0.9) Creatinine 1.31 MG/DL (0.60-1.30) Random Glucose 1217 MG/DL (74-106) Albumin 3.1 GM/DL (3.4-5.0) Alkaline Phosphatase 136 U/L (45-117) Aspartate Amino Transf (AST/SGOT) 39 U/L (15-37) Sodium Level 111 MEQ/L (136-145) Chloride Level 74 MEQ/L (98-107) Estimat Glomerular Filtration Rate 60 ML/MIN (>89) Lab work shows elevated blood sugar, severe hyponatremia, suspected of underlying pseudohyponatremia as well. IV fluids and insulin was given. IV antibiotics initiated after cultures are drawn. At this point, and Is within normal limits and a DKA is not suspected. Plan would be to admit the patient for further treatment. Case was discussed with family practice resident service for admission. Data Data Last Documented VS Vital Signs Date Time Temp Pulse Resp B/P (MAP) Pulse Ox O2 Delivery O2 Flow Rate FiO2 04/26/17 19:49 79 18 106/67 (80) 95 Room Air 04/26/17 19:03 98.8 Orders Orders Sepsis Workup Initiated (04/26/17 ) Complete Blood Count With Diff (04/26/17 19:22) Comprehensive Metabolic Panel (04/26/17 19:22) Prothrombin Time / Inr (Pt) (04/26/17 19:22) Act Partial Throm Time (Ptt) (04/26/17 19:22) Blood Culture (04/26/17 19:22) Wound Culture And Gram Stain (04/26/17 19:22) Lactic Acid Sepsis Protocol (04/26/17 19:22) Sodium Chlor 0.9% 1000 Ml Inj (Ns 1000 M (04/26/17 19:22) Sodium Chlor 0.9% 1000 Ml Inj (Ns 1000 M (04/26/17 19:22) Iv Access Insert/Monitor (04/26/17 19:22) Vancomycin Inj (Vancomycin Inj) (04/26/17 19:30) Vancomycin Inj (Vancomycin Inj) (04/26/17 19:45) Beta Hydroxybutyrate (Acetone) (04/26/17 19:33) Nystatin Liq (Mycostatin Liq) (04/26/17 19:45) Insulin Human Regular Inj (Novolin R Inj (04/26/17 20:15) Ob/Psych Drug Screen, Urine (04/26/17 20:29) Urinalysis - C+S If Indicated (04/26/17 20:29) Admit Order (Ed Use Only) (04/26/17 20:30) Labs Laboratory Tests Test 04/26/17 19:30 White Blood Count 16.0 TH/MM3 Red Blood Count 4.54 MIL/MM3 Hemoglobin 13.7 GM/DL Hematocrit 42.3 % Mean Corpuscular Volume 93.3 FL Mean Corpuscular Hemoglobin 30.3 PG Mean Corpuscular Hemoglobin Concent 32.4 % Red Cell Distribution Width 14.2 % Platelet Count 419 TH/MM3 Mean Platelet Volume 9.4 FL Neutrophils (%) (Auto) 79.9 % Lymphocytes (%) (Auto) 11.4 % Monocytes (%) (Auto) 8.2 % Eosinophils (%) (Auto) 0.1 % Basophils (%) (Auto) 0.4 % Neutrophils # (Auto) 12.8 TH/MM3 Lymphocytes # (Auto) 1.8 TH/MM3 Monocytes # (Auto) 1.3 TH/MM3 Eosinophils # (Auto) 0.0 TH/MM3 Basophils # (Auto) 0.1 TH/MM3 CBC Comment DIFF FINAL Differential Comment Blood Urea Nitrogen 15 MG/DL Creatinine 1.31 MG/DL Random Glucose 1217 MG/DL Total Protein 8.1 GM/DL Albumin 3.1 GM/DL Calcium Level 8.6 MG/DL Alkaline Phosphatase 136 U/L Aspartate Amino Transf (AST/SGOT) 39 U/L Alanine Aminotransferase (ALT/SGPT) 34 U/L Total Bilirubin 0.8 MG/DL Sodium Level 111 MEQ/L Potassium Level 4.9 MEQ/L Chloride Level 74 MEQ/L Carbon Dioxide Level 25.8 MEQ/L Anion Gap 11 MEQ/L Estimat Glomerular Filtration Rate 60 ML/MIN Lactic Acid Level 1.8 mmol/L MDM Medical Record Reviewed: Yes Supervised Visit with JEANNIE: Yes Diagnosis Primary Impression: Cellulitis of left arm Additional Impressions: Oral thrush Hyperglycemia Leukocytosis Admitting Information Admitting Physician Requests: Admit Chan Ramirez MD Apr 26, 2017 22:28
[2017-04-26] MEDS: POTASSIUM CHLORIDE INJ 30 MEQ in SODIUM CHLOR 0.9% 1000 ML INJ 1,000 ML IV SCH (22:41)
[2017-04-26 22:45] LABS: BLOOD GAS CARBOXYHEMOGLOBIN 3.8 % (0-4); BLOOD GAS HCO3 25 mmol/L (22-26); BLOOD GAS METHEMOGLOBIN 0.4 % (0-2); BLOOD GAS O2 HGB SATURATION 94 % (90-100); BLOOD GAS OXYGEN CONTENT 17.8 Vol % (12.0-20.0); BLOOD GAS PCO2 43 mmHg (38-42); BLOOD GAS PO2 93 mmHG (61-120); BLOOD GAS TOTAL HGB 13.5 G/DL (12.0-16.0); CRITICAL VALUE NO; OXYGEN DEVICE RA; TEMP CORR TO 98.6
[2017-04-26 22:46] LABS: DRAW SITE RT RADIAL; FIO2 21 %; NUMBER OF ARTERIAL PUNCTURES 1; STAT NO; ULNAR PULSE PRESENT
[2017-04-26] MEDS: metroNIDAZOLE 500 MG INJ 100 ML IV SCH (23:00)
[2017-04-26 23:16] LABS: BETA-HYDROXYBUTYRATE 1.57 MMOL/L (0.00-0.39)
[2017-04-26 23:43] VITALS: O2SAT 96
[2017-04-26] MEDS: AZTREONAM INJ 2,000 MG in SODIUM CHLORIDE 0.9% INJ 100 ML IV SCH (23:48)
[2017-04-27] VITALS (19 sets, daily range): BP systolic 89–162; BP diastolic 52–77; PULSE 60–80; RESP 13–24; TEMP 98.2–99.1; O2SAT 95–100
[2017-04-27 00:02] LABS: BETA-HYDROXYBUTYRATE 1.27 MMOL/L (0.00-0.39); BICARBONATE 26.2 MEQ/L (21.0-32.0); POTASSIUM 3.3 MEQ/L (3.5-5.1)
[2017-04-27] MEDS ORDERED: POTASSIUM CHLORIDE 10 MEQ CONTROLLED RELEASE TAB PO ONE ×2 (00:30→05:45)
[2017-04-27] MEDS: KETOROLAC TROMETHAMINE 30 MG/ML (IVP) VIAL IV PUSH SCH ×2 (00:47→06:10)
[2017-04-27] MEDS ORDERED: CHLORHEXIDINE GLUCONATE 2 % 1 PACK (2 CLOTHS)(extra cloths) TOPICAL PRN (01:00)
[2017-04-27] MEDS: POTASSIUM CHLORIDE INJ 30 MEQ in SODIUM CHLOR 0.9% 1000 ML INJ 1,000 ML IV SCH ×2 (02:04→06:09)
[2017-04-27] MEDS: CHLORHEXIDINE GLUCONATE 2 % 1 PACK (2 CLOTHS)(taper/protocol) TOPICAL SCH (04:00)
[2017-04-27 04:16] LABS: APTT (PATIENT) 24.7 SEC (24.3-30.1); INTERNATIONAL NORMALIZED RATIO 0.9 RATIO; PROTHROMBIN TIME - PATIENT 9.7 SEC (9.8-11.6)
[2017-04-27 05:35] LABS: BICARBONATE 30.4 MEQ/L (21.0-32.0); POTASSIUM 3.2 MEQ/L (3.5-5.1)
[2017-04-27] MEDS: metroNIDAZOLE 500 MG INJ 100 ML IV SCH ×4 (05:41→22:19)
[2017-04-27] MEDS: HEPARIN SODIUM - SQ 10,000 UNITS/ML VIAL SQ SCH ×3 (06:09→21:34)
[2017-04-27 06:13] LABS: HEMATOCRIT 35.4 % (39.0-51.0); MEAN CELL VOLUME 87.5 FL (80.0-100.0); MEAN CORPUSCULAR HEMOGLOBIN 30.2 PG (27.0-34.0); MEAN CORPUSCULAR HGB CONC 34.6 % (32.0-36.0); PLATELET COUNT 304 TH/MM3 (150-450); RED BLOOD COUNT 4.05 MIL/MM3 (4.50-5.90); RED CELL DISTRIBUTION WIDTH 13.4 % (11.6-17.2); REVIEW FLAG FINAL; WHITE BLOOD COUNT 13.5 TH/MM3 (4.0-11.0)
[2017-04-27 06:14] LABS: ANION GAP 4 MEQ/L (5-15); BICARBONATE 29.6 MEQ/L (21.0-32.0); BLOOD UREA NITROGEN 8 MG/DL (7-18); CHLORIDE 95 MEQ/L (98-107); GLOMERULAR FILTRATION RATE 117 ML/MIN (>89); POTASSIUM 3.4 MEQ/L (3.5-5.1); SODIUM (NA) 129 MEQ/L (136-145)
[2017-04-27 06:17] LABS: HDL CHOLESTEROL 28.7 MG/DL (40.0-60.0); LDL CHOLESTEROL 31 MG/DL (0-99)
[2017-04-27] MEDS ORDERED: DEXTROSE 50% IN WATER 50 ML VIAL(D50) IV PUSH PRN (06:30)
[2017-04-27] MEDS ORDERED: GLUCAGON 1 MG/ML VIAL OTHER PRN (06:30)
[2017-04-27] MEDS: DEXT 5%-NACL 0.45% 1000 ML INJ 1,000 ML IV SCH ×2 (06:47→18:31)
[2017-04-27] MEDS: AZTREONAM INJ 2,000 MG in SODIUM CHLORIDE 0.9% INJ 100 ML IV SCH ×3 (06:48→22:19)
[2017-04-27 07:59] LABS: BICARBONATE 27.6 MEQ/L (21.0-32.0)
[2017-04-27] MEDS ORDERED: VANCOMYCIN INJ 1,000 MG in SODIUM CHLOR 0.9% 250 ML INJ 250 ML IV SCH (08:00)
[2017-04-27] MEDS ORDERED: INSULIN ASPART SUPPLEMENTAL SCALE SQ SCH (08:00)
[2017-04-27] MEDS: INSULIN ASPART SUPPLEMENTAL SCALE SQ SCH ×4 (08:00→21:00)
--- NOTE | 2017-04-27 08:25 | HHI.FPPN ---
Subjective Remarks FM Attending Note: Patient seen and examined. S: Chart and all resident physician notes reviewed. In summary this is a 41 year old male who was admitted with an admission diagnosis of skin abscess/ cellulitis, thrush, hyperglycemic hyperosmolar state, Leukocytosis. This patient has a history of uncontrolled type II insulin-dependent diabetes. He reportedly was taking a short acting insulin and metformin as an outpatient but had run out of his long acting insulin. He has a history of significant substance abuse and reports homelessness. He does live with a common law . Approximately 10 days ago he developed an infection of his left proximal forearm. This became progressively worse and developed an abscess that did drain a large amount of purulent material spontaneously yesterday. He has had significant pain. The patient has at previous hospitalizations for hyperglycemic hyperosmolar states. Objective Vitals Vital Signs Date Time Temp Pulse Resp B/P (MAP) Pulse Ox O2 Delivery O2 Flow Rate FiO2 04/27/17 06:00 67 04/27/17 04:00 98.5 74 20 99/66 (77) 98 04/27/17 04:00 74 04/27/17 02:00 71 04/27/17 01:00 98.5 73 16 106/56 (73) 97 04/26/17 23:43 96 21 04/26/17 19:49 79 18 106/67 (80) 95 Room Air 04/26/17 19:03 98.8 91 16 136/83 (100) 97 Room Air I/O 04/26/17 04/26/17 04/26/17 04/27/17 04/27/17 04/27/17 07:00 15:00 23:00 07:00 15:00 23:00 Intake Total 4273.7 ml Output Total 925 ml Balance 3348.7 ml Intake Oral 720 ml IV Total 3553.7 ml Output Urine Total 925 ml Result Diagram: 04/27/17 0530 04/27/17 0723 Other Results Item Value Date Time Hemoglobin A1c 17.9 % H 04/27/17 0530 Triglycerides Level 146 MG/DL 04/27/17 0530 Cholesterol Level 89 MG/DL L 04/27/17 0530 LDL Cholesterol 31 MG/DL 04/27/17 0530 HDL Cholesterol 28.7 MG/DL L 04/27/17 0530 Cholesterol/HDL Ratio 3.10 RATIO 04/27/17 0530 Thyroid Stimulating Hormone 3rd Gen 3.070 uIU/ML 04/27/17 0530 Prothrombin Time 9.7 SEC L 04/26/17 0152 Urine Glucose (UA) 1000 mg/dL H 04/26/172108 Urine Ketones 10 mg/dL H 04/26/172108 Urine Specific [place] 1.027 04/26/172108 Urine Leukocyte Esterase NEG 04/26/172108 Urine Nitrite NEG 04/26/172108 B-Hydroxybutyrate 1.57 MMOL/L H 04/26/17 193 Ethyl Alcohol Level LESS THAN 3 MG/DL 04/26/17 193 Urine Cannabinoids Screen POS H 04/26/172129 Urine Opiates Screen POS H 04/26/172129 Imaging Last 48 hours Impressions Upper Extremity Ultrasound 04/26/17 0000 Signed Impressions: Service Date/Time: Wednesday, April 26, 2017 21:47 - CONCLUSION: Broad area of forearm cellulitis but no drainable abscess. Isaias Gillespie MD Chest X-Ray 04/26/17 0000 Signed Impressions: Service Date/Time: Wednesday, April 26, 2017 21:40 - CONCLUSION: No evidence of acute cardiopulmonary disease. Isaias Gillespie MD Objective Remarks O. CONSTITUTIONAL/GEN: normally nourished, in NAD. EYES: conjunctiva normal, PERRLA, EOMI. LUNGS: clear A-P, respiratory effort is normal. CARDIOVASCULAR: RR without murmur or gallop. No significant edema. GI/ABD: soft without masses, without organomegaly. NEURO: No focal deficits. SKIN: color normal, no rashes noted. HEME/LYMPH: no bruising, petechia or significant adenopathy MUSC: back is normal in appearance. Extremities are normal in appearance. Left proximal forearm/elbow are bandaged. FROM of elbow (mod pain) and hand/ wrist function PSYCH/MENTAL STATUS: Alert and oriented x 3. A/P Assessment and Plan 41 year old male with a past medical history of uncontrolled diabetes presents in hyperosmolar hyperglycemic state with a left arm abscess/cellulitis with no history of antibiotics. He will be admitted for management with IV fluids, insulin, and IV antibiotics for the abscess. Hand surgery has been consulted to assist with management of the left arm abscess. Problem List: (1) Uncontrolled type 2 diabetes mellitus with hyperosmolar nonketotic hyperglycemia ICD Codes: E11.00 - Type 2 diabetes mellitus with hyperosmolarity without nonketotic hyperglycemic-hyperosmolar coma ([facility]) Plan: -Serum glucose 1217 on admission -Pseudohyponatremia at 111, corrected sodium at 122.2 -Potassium within normal limits at 4.9 -ABG shows pH of 7.39, WNL -Beta hydroxybutyrate elevated at 1.57 -UA shows 1000 glucose and 10 ketones -Received 9 units regular insulin bolus in the ED and 2 normal saline 1 L boluses -Start regular insulin drip at 0.5 units per hour, titrate per protocol -Normal saline with 30 of K at 250 MLS per hour -Nothing by mouth until glucose is down to 300 mg/dL. Will reduce regular insulin infusion at that time and introduce diet -A1c pending -BMP every 2 hours -Accu-Cheks every 2 hours -Admit to ICU due to need for frequent checks 04-27-2017 Will continue IV hydration, insulin, mineral and electrolyte replacement. (2) Abscess of arm, left ICD Codes: L02.414 - Cutaneous abscess of left upper limb Plan: -Continue vancomycin 1 g IV every 24 hours with pharmacy consults ( received one dose of vancomycin in the ED) - cover gram positives -Add Aztreonam 2 g every 8 hours IV - cover gram-negatives -Flagyl 500 mg every 6 hours IV for anaerobes -Toradol 30 mg IV every 6 hours scheduled for pain and inflammation -Ultrasound of left upper extremity reveals broad area of forearm cellulitis with no drainable abscess -Wound gram stain and culture pending -Blood cultures pending 04-27-2017 Will continue IV antibiotic therapy. Hand surgery consultation pending (3) CRISTINA (acute kidney injury) ICD Codes: N17.9 - Acute kidney failure, unspecified Plan: -Creatinine elevated at 1.31 -Baseline 0.80 on 02/01/17 -Fluids as above -Avoid nephrotoxic agents 04-27-2017 Will continue to monitor with continued IV hydration. (4) Oral thrush ICD Codes: B37.0 - Candidal stomatitis Plan: -Nystatin swish and swallow -Will check HIV - patient consented (5) Multiple substance abuse ICD Codes: F19.10 - Other psychoactive substance abuse, uncomplicated Plan: -UDS positive for opiates, cocaine, and cannabinoids -Negative alcohol -High risk of withdrawal during hospitalization -Supportive care 04-27-2017 This patient does note previous acute narcotic withdrawal symptoms when narcotic medications have been stopped. His blood pressure has been low so will not start clonidine at this time. In order to control his pain will start him on a small schedule dose of methadone 2.5 mg Q8H. Will plan to increase as needed for pain control. (6) Depression ICD Codes: F32.9 - Major depressive disorder, single episode, unspecified Plan: -Patient reports history of depression and PTSD -Not currently on any medications -Currently in an outpatient rehabilitation program for substance abuse -Consider psych consult if worsens during this hospitalization (7) FEN/DVT PPX/GI PPX/Nursing Orders Plan: Fluids: NS @ 250 mls/hr IV Electrolytes: Will monitor and replace as needed Nutrition: NPO DVT Prophylaxis: Heparin subcutaneous Q8h GI Prophylaxis: Not required Constipation prophylaxis: Constipation regimen PRN Medications Tylenol 650 mg by mouth every 4 hours when necessary pain 1-10 or temperature greater than 100.4F Zofran 4 mg IV push every 6 hours when necessary nausea vomiting Morphine 2 mg IV push every 3 hours when necessary breakthrough pain Vasotec 1.25 mg IV PRN SBP greater than 170 or DBP greater than 100 -Vitals Q4h -Monitor I's and O's -monitoring engineer with telemetry with continuous vital signs -Activity bed rest -PT to assist with ambulation -OT to evaluate -Case management consult to assist with discharge disposition Problem Qualifiers (1) Depression: Sylvester Arellano MD Apr 27, 2017 08:25
[2017-04-27] MEDS: NYSTATIN SUSP 500,000 U/5 ML CUP SWISH-SWAL SCH ×4 (08:44→21:32)
[2017-04-27] MEDS: VANCOMYCIN 1,000 MG/NS 250 ML IV SCH ×4 (08:45→21:33)
[2017-04-27] MEDS: SODIUM CHLORIDE 0.9% FLUSH 10 ML FLUSH IV FLUSH SCH ×2 (08:46→21:32)
[2017-04-27] MEDS: DOCUSATE SODIUM 50 MG/SENNA 8.6 MG TAB PO SCH ×2 (08:46→21:00)
[2017-04-27 09:46] LABS: HEMOGLOBIN A1a 1.7 %; HEMOGLOBIN Ao 63.3 %; HEMOGLOBIN F 5.4 %; HEMOGLOBIN LA1C 4.3 %; HEMOGLOBIN P3 8.2 %
[2017-04-27 10:07] LABS: MAGNESIUM 1.9 MG/DL (1.5-2.5)
--- NOTE | 2017-04-27 11:53 | EKG ---
Date Performed: 04/26/2017 Time Performed: 22:08:06 PTAGE: 41 years EKG: Sinus rhythm LOW QRS VOLTAGE IN EXTREMITY LEADS NONSPECIFIC ST ELEVATION BORDERLINE ECG PREVIOUS TRACING 01/30/17 Compared to the prior study, nonspecific ST changes are now persent. DOCTOR: Rm Deluca Interpretating Date/Time 04/27/2017 11:53:45
--- NOTE | 2017-04-27 11:55 | EKG ---
Date Performed: 04/27/2017 Time Performed: 04:26:20 PTAGE: 41 years EKG: Sinus rhythm . Low QRS voltages in limb leads Borderline ECG PREVIOUS TRACING : 04/26/2017 22.08 Compared to the prior study, nonspecific ST-T changes have improved. DOCTOR: Rm Deluca Interpretating Date/Time 04/27/2017 11:54:14
[2017-04-27] MEDS ORDERED: POTASSIUM PHOSPHATE MONOBASIC 500 MG TAB PO ONE (12:00)
[2017-04-27] MEDS ORDERED: KETOROLAC TROMETHAMINE 30 MG/ML (IVP) VIAL IV PUSH PRN (14:00)
[2017-04-27] MEDS: METHADONE HCL 10 MG TAB PO SCH ×2 (14:24→19:33)
--- NOTE | 2017-04-27 14:53 | MB ---
cc: HUMBERTO MUNIZ III, M.D. DATE OF CONSULTATION: 04/27/2017. HISTORY OF PRESENT ILLNESS: The patient is a 41-year-old male who appears older than his stated age who was admitted yesterday. He is a poorly controlled diabetic with a left forearm abscess, which he states he first noticed ten days ago. According to the records, it spontaneously burst yesterday. The patient is not very pleasant and he is a poor historian. He does have diabetes but there are reports of noncompliance with his insulin regimen. PAST MEDICAL HISTORY: 1. Bipolar disorder. 2. Depression. 3. Hypertension. 4. Diabetes. PAST SURGICAL HISTORY: 1. Appendectomy. 2. Hydrocelectomy. SOCIAL HISTORY: He smokes cigarettes. Substance use. He does report using different substances per the medical records. ALLERGIES: PENICILLIN. MEDICATIONS: 1. Novolin R insulin. 2. Metformin. 3. Lantus insulin. MEDICATIONS IN THE HOSPITAL: 1. Vancomycin. 2. Insulin. 3. Potassium. 4. Toradol. 5. Flagyl. 6. Subcutaneous heparin. 7. Nystatin swish and swallow. 8. Aztreonam. 9. Tylenol. 10. Vancomycin. 11. Methadone. LABORATORY STUDIES: White blood cell count 19597 down from 16,000. Platelet count of 304,000. Normal coags. Blood chemistries are in the computer. He has a glucose which is slowly correcting. Tox screen is positive for urine opiates, cocaine, and cannabinoids. IMAGING STUDIES: Chest x-ray revealed no evidence of acute cardiopulmonary disease. An upper extremity ultrasound revealed a broad area of forearm cellulitis but no drainable abscess. PHYSICAL EXAMINATION: GENERAL: He is mildly cachectic and in no apparent distress lying comfortably in his hospital bed. He is awake, alert and oriented x3. VITAL SIGNS: Temperature is 98.6, heart rate 62, respiratory rate 14, blood pressure 111/66, pulse oximetry 96% on room air. On examination of the left upper extremity, he has full active range of motion. There is mild edema in the proximal forearm posteriorly. There is a draining abscess which appears to be very superficial and collapsed. He is neurovascularly intact. All musculotendinous units are intact. There is no evidence of any streaking. There is an IV in the left upper extremity proximal to the infection. IMPRESSION: Left forearm abscess and infection. PLAN: I made the patient NPO but that order was changed and he has recently eaten. I will be doing a bedside incision and drainage of his left forearm abscess and will start packing changes. I discussed this with the nurse and she has been very helpful during this visit. Continue antibiotics and I have also ordered strict elevation of this hand. Better control of his blood glucose will also be helpful as well. MD KRISTEN Acuna III/LUCIE /2:39 PM /2:47 PM
--- NOTE | 2017-04-27 15:10 | MR ---
cc: SAM ROCK III, M.D. DATE: 04/27/2017. PREOPERATIVE DIAGNOSIS Left forearm abscess. PROCEDURE: Left forearm abscess irrigation and debridement. SURGEON: Sam Rock III, MD. DESCRIPTION OF THE PROCEDURE IN DETAIL: The patient was made comfortable in his bed. The nurse was at the bedside and the patient had provided verbal consent. The left forearm wound was decompressed bluntly and then fairly debrided with cotton-tipped applicators and peroxide and then packed with one-quarter inch Iodoform packing. There was no additional purulent material remaining. The patient remained neurovascularly intact throughout and tolerated the procedure well. A bulky sterile dressing was applied. The patient tolerated the procedure well. MD KRISTEN Acuna III/LUCIE /2:56 PM /3:04 PM
[2017-04-27 18:05] LABS: ANION GAP 9 MEQ/L (5-15); BICARBONATE 26.3 MEQ/L (21.0-32.0); BLOOD UREA NITROGEN 11 MG/DL (7-18); CHLORIDE 94 MEQ/L (98-107); GLOMERULAR FILTRATION RATE 728 ML/MIN (>89); POTASSIUM 4.2 MEQ/L (3.5-5.1); SODIUM (NA) 129 MEQ/L (136-145)
[2017-04-27] MEDS ORDERED: INSULIN DETEMIR 100 UNITS/ML VIAL SQ SCH ×2 (18:29→18:30)
[2017-04-27] MEDS ORDERED: NICOTINE 21 MG/24 HR PATCH T-DERMAL ONE (23:30)
[2017-04-28] VITALS (13 sets, daily range): BP systolic 109–120; BP diastolic 62–97; PULSE 61–78; RESP 12–25; TEMP 96.8–98.8; O2SAT 95–98
[2017-04-28] MEDS: METHADONE HCL 10 MG TAB PO SCH ×2 (03:09→11:28)
[2017-04-28] MEDS: CHLORHEXIDINE GLUCONATE 2 % 1 PACK (2 CLOTHS)(taper/protocol) TOPICAL SCH ×2 (03:10→20:00)
[2017-04-28] MEDS ORDERED: INSULIN ASPART 1,000 UNITS/10 ML VIAL SQ ONE (03:45)
[2017-04-28] MEDS: metroNIDAZOLE 500 MG INJ 100 ML IV SCH ×4 (05:45→20:05)
[2017-04-28] MEDS: AZTREONAM INJ 2,000 MG in SODIUM CHLORIDE 0.9% INJ 100 ML IV SCH ×3 (05:45→20:18)
[2017-04-28] MEDS: HEPARIN SODIUM - SQ 10,000 UNITS/ML VIAL SQ SCH ×3 (05:46→20:06)
[2017-04-28] MEDS: INSULIN ASPART SUPPLEMENTAL SCALE SQ SCH ×4 (08:00→19:59)
[2017-04-28] MEDS: SODIUM CHLORIDE 0.9% FLUSH 10 ML FLUSH IV FLUSH SCH ×2 (08:28→19:59)
[2017-04-28] MEDS: DOCUSATE SODIUM 50 MG/SENNA 8.6 MG TAB PO SCH ×2 (08:28→20:06)
[2017-04-28] MEDS: NYSTATIN SUSP 500,000 U/5 ML CUP SWISH-SWAL SCH ×4 (08:28→20:06)
[2017-04-28] MEDS ORDERED: PHARMACY ORDERED LAB ONE (09:45)
[2017-04-28] MEDS: VANCOMYCIN 1,000 MG/NS 250 ML IV SCH ×4 (12:35→20:18)
[2017-04-28] MEDS ORDERED: SODIUM CHLOR 0.9% 1000 ML INJ 1,000 ML IV ONE (13:00)
[2017-04-28 13:17] LABS: AUTOMATED NEUTROPHIL # 5.5 TH/MM3 (1.8-7.7); BASOPHIL # 0.1 TH/MM3 (0-0.2); BASOPHIL % 0.7 % (0.0-2.0); EOSINOPHIL # 0.1 TH/MM3 (0-0.4); EOSINOPHIL % 0.7 % (0.0-4.0); HEMATOCRIT 39.1 % (39.0-51.0); HEMO FLAGS DIFF FINAL; LYMPH % 25.7 % (9.0-44.0); LYMPHOCYTE # 2.2 TH/MM3 (1.0-4.8); MEAN CELL VOLUME 89.3 FL (80.0-100.0); MEAN CORPUSCULAR HEMOGLOBIN 29.7 PG (27.0-34.0); MEAN CORPUSCULAR HGB CONC 33.2 % (32.0-36.0); MONO % 6.9 % (0.0-8.0); PLATELET COUNT 324 TH/MM3 (150-450); RED BLOOD COUNT 4.38 MIL/MM3 (4.50-5.90); RED CELL DISTRIBUTION WIDTH 13.7 % (11.6-17.2); WHITE BLOOD COUNT 8.4 TH/MM3 (4.0-11.0)
[2017-04-28 13:47] LABS: BICARBONATE 23.8 MEQ/L (21.0-32.0); POTASSIUM 4.1 MEQ/L (3.5-5.1)
[2017-04-28] MEDS: SODIUM CHLOR 0.9% 1000 ML INJ 1,000 ML IV SCH ×2 (13:58→23:15)
[2017-04-28] MEDS ORDERED: METHADONE HCL 10 MG TAB PO SCH (14:00)
--- NOTE | 2017-04-28 15:12 | HHI.FPPN ---
Subjective Remarks Mr Jose's blood glucose was elevated into the 500s and 600s overnight. We are titrating his insulin for better glucose control. Dr Rock performed a bedside irrigation and debridement of the pt's left forearm yesterday. Pt told us he would like a larger pain medication dose today if possible. We discussed his glucose control and resources to keep his blood glucose under better control once he discharges. Pt is tolerating PO, pain needs better control, is voiding and stooling, and plans to ambulate today. Denies CP, SOB, N/V/D and DVT pain. Objective Vitals Vital Signs Date Time Temp Pulse Resp B/P (MAP) Pulse Ox O2 Delivery O2 Flow Rate FiO2 04/28/17 14:00 66 04/28/17 12:28 17 04/28/17 12:00 96.8 76 22 113/97 (102) 97 04/28/17 12:00 76 04/28/17 10:00 78 04/28/17 08:00 67 04/28/17 08:00 98.8 67 25 112/62 (79) 96 04/28/17 06:00 69 04/28/17 04:00 65 04/28/17 04:00 98.8 65 15 120/74 (89) 95 04/28/17 02:00 72 04/28/17 00:00 98.8 73 13 113/70 (84) 97 04/28/17 00:00 73 04/27/17 22:00 72 04/27/17 20:00 99.1 70 18 109/59 (76) 99 04/27/17 20:00 70 04/27/17 18:00 68 24 98 04/27/17 18:00 68 04/27/17 17:00 76 04/27/17 17:00 76 17 111/56 (74) 95 04/27/17 16:01 80 04/27/17 16:01 80 20 162/77 (105) 100 04/27/17 16:00 77 19 99 04/27/17 16:00 77 04/27/17 15:00 63 13 115/67 (83) 96 04/27/17 15:00 63 I/O 04/27/17 04/27/17 04/27/17 04/28/17 04/28/17 04/28/17 07:00 15:00 23:00 07:00 15:00 23:00 Intake Total 4273.7 ml 100 ml 3008 ml 2220 ml 1100 ml Output Total 925 ml 4050 ml 2350 ml Balance 3348.7 ml 100 ml 3008 ml -1830 ml -1250 ml Intake Oral 720 ml 720 ml 1920 ml 750 ml IV Total 3553.7 ml 100 ml 2288 ml 300 ml 350 ml Output Urine Total 925 ml 4050 ml 2350 ml # Voids 6 # Bowel Movements 1 Result Diagram: 04/28/17 1232 04/28/17 1232 Imaging Last Impressions Upper Extremity Ultrasound 04/26/17 0000 Signed Impressions: Service Date/Time: Wednesday, April 26, 2017 21:47 - CONCLUSION: Broad area of forearm cellulitis but no drainable abscess. Isaias Gillespie MD Chest X-Ray 04/26/17 0000 Signed Impressions: Service Date/Time: Wednesday, April 26, 2017 21:40 - CONCLUSION: No evidence of acute cardiopulmonary disease. Isaias Gillespie MD Objective Remarks O. CONSTITUTIONAL/GEN: normally nourished, in NAD. EYES: conjunctiva normal, PERRLA, EOMI. LUNGS: clear A-P, respiratory effort is normal. CARDIOVASCULAR: RR without murmur or gallop. No significant edema. GI/ABD: soft without masses, without organomegaly. NEURO: No focal deficits. SKIN: color normal, no rashes noted. HEME/LYMPH: no bruising, petechia or significant adenopathy MUSC: back is normal in appearance. Extremities are normal in appearance. Left proximal forearm/elbow are bandaged. FROM of elbow (mod pain) and hand/ wrist function PSYCH/MENTAL STATUS: Alert and oriented x 3. Procedures Bedside I&D and debridement of left forearm cellulitis w/o abscess Medications and IVs Current Medications Medications (Trade) Dose Ordered Sig/Daniel Route Start Time Stop Time Status Last Admin (NS Flush) 2 ml UNSCH PRN IV FLUSH 04/26/17 21:30 (NS Flush) 2 ml BID IV FLUSH 04/27/17 09:00 04/28/17 08:28 (Tylenol) 650 mg Q4H PRN PO 04/26/17 21:30 04/27/17 00:20 (Zofran Inj) 4 mg Q6H PRN IVP 04/26/17 21:30 04/28/17 03:10 (Heparin Inj) 5,000 units Q8H SQ 04/26/17 22:00 04/28/17 14:01 (Narcan Inj) 0.4 mg UNSCH PRN IV PUSH 04/26/17 21:30 (Theresa-Colace) 1 tab BID PO 04/27/17 09:00 04/28/17 08:28 (Milk Of Magnesia Liq) 30 ml Q12H PRN PO 04/26/17 21:30 (Senokot) 17.2 mg Q12H PRN PO 04/26/17 21:30 (Dulcolax Supp) 10 mg DAILY PRN RECTAL 04/26/17 21:30 (Lactulose Liq) 30 ml DAILY PRN PO 04/26/17 21:30 (Mycostatin Liq) 5 ml QID SWISH-SWAL 04/26/17 22:00 04/28/17 08:28 Pharmacy Profile Note 0 ml @ 0 mls/hr UNSCH OTHER 04/26/17 22:00 Metronidazole 100 ml @ 100 mls/hr Q6H IV 04/26/17 23:00 04/28/17 11:27 Aztreonam 2000 mg/ Sodium Chloride 100 ml @ 200 mls/hr Q8H IV 04/26/17 22:00 04/28/17 13:57 Miscellaneous Information Patient in critical care unit? Ass... Q361D .XX 04/27/17 01:00 (Chlorhexidine 2% Cloth) 3 pack DAILY@04 TOPICAL 04/27/17 04:00 05/01/17 04:01 04/28/17 03:10 (Chlorhexidine 2% Cloth) 3 pack UNSCH PRN TOPICAL 04/27/17 01:00 05/02/17 00:49 (D50w (Vial) Inj) 50 ml UNSCH PRN IV PUSH 04/27/17 06:30 (Glucagon Inj) 1 mg UNSCH PRN OTHER 04/27/17 06:30 (NovoLOG SUPPLEMENTAL SCALE) 1 ACHS SLIDING SCALE SQ 04/27/17 08:00 Future Hold 04/27/17 21:00 (Toradol Inj) 30 mg Q8HR PRN IV PUSH 04/27/17 14:00 (Habitrol 21 Mg Patch.24 Hr) 1 patch DAILY T-DERMAL 04/29/17 09:00 Miscellaneous Information 1 HS T-DERMAL 04/28/17 21:00 (NovoLOG SUPPLEMENTAL SCALE) 1 ACHS SLIDING SCALE SQ 04/28/17 08:00 04/28/17 12:00 (Levemir Inj) 15 units BID SQ 04/28/17 21:00 (Dolophine) 20 mg Q8H PO 04/28/17 14:00 04/28/17 14:06 Sodium Chloride 1,000 ml @ 100 mls/hr Q10H IV 04/28/17 14:00 04/28/17 13:58 Vancomycin HCl 1000 mg/Sodium Chloride 250 ml @ 250 mls/hr Q8H IV 04/28/17 21:00 Miscellaneous Information SPECIFIC LAB TO BE ... ONCE ONCE .XX 04/29/17 12:45 04/29/17 12:46 A/P Assessment and Plan 41 year old male with a past medical history of uncontrolled diabetes presents in hyperosmolar hyperglycemic state with a left arm abscess/cellulitis with no history of antibiotics. He will be admitted for management with IV fluids, insulin, and IV antibiotics for the abscess. Hand surgery has been consulted to assist with management of the left arm abscess. 04/28: Blood glucose in 500s-600s last night on 10u Levemir qhs and low sliding scale that was increased to Moderate SSI early this morning. He cannot leave ICU until better controlled. clinical systems educator spoke with pt today. Plan today: 1. Better blood glucose control: Started Levemir 15u BID; continue Moderate SSI ; frequent accucheks 2. Pain control: increase methadone to 20mg daily; Torodol 30mg q6h PRN for breakthrough pain 3. Discharge planning: spoke to CM about insulin requirement upon discharge; will get pt assistance for 30 days; discussed this with pt 4. Fluid requirements: 1L NS IVF bolus followed by NS IVF @ 100ml/hr 5. Cellulitis of Left forearm: continue aztreonam, vanc, zosyn until cx are back Problem List: (1) Uncontrolled type 2 diabetes mellitus with hyperosmolar nonketotic hyperglycemia ICD Codes: E11.00 - Type 2 diabetes mellitus with hyperosmolarity without nonketotic hyperglycemic-hyperosmolar coma ([facility]) Plan: -Serum glucose 1217 on admission -Pseudohyponatremia at 111, corrected sodium at 122.2 -Potassium within normal limits at 4.9 -ABG shows pH of 7.39, WNL -Beta hydroxybutyrate elevated at 1.57 -UA shows 1000 glucose and 10 ketones -Received 9 units regular insulin bolus in the ED and 2 normal saline 1 L boluses -Start regular insulin drip at 0.5 units per hour, titrate per protocol -Normal saline with 30 of K at 250 MLS per hour -Nothing by mouth until glucose is down to 300 mg/dL. Will reduce regular insulin infusion at that time and introduce diet -A1c 17.9 -CMP 04/29 -Accu-Cheks every 2 hours -Admit to ICU due to need for frequent checks 04-27-2017 Will continue IV hydration, insulin, mineral and electrolyte replacement. 04/28: plan as above; start levemir 20u BID; augment with Mod SSI; IVF; replete lytes as necessary (2) Abscess of arm, left ICD Codes: L02.414 - Cutaneous abscess of left upper limb Plan: -Continue vancomycin 1 g IV every 24 hours with pharmacy consults ( received one dose of vancomycin in the ED) - cover gram positives -Add Aztreonam 2 g every 8 hours IV - cover gram-negatives -Flagyl 500 mg every 6 hours IV for anaerobes -Toradol 30 mg IV every 6 hours PRN -Ultrasound of left upper extremity reveals broad area of forearm cellulitis with no drainable abscess -Wound gram normal skin marty -Blood cultures NGTD x2 days 04-27-2017 Will continue IV antibiotic therapy. Hand surgery consultation pending 04/28: Dr Rock performed bedside I&D and debridement; continue abx; elevate arm ; pain and tighter glucose control (3) CRISTINA (acute kidney injury) ICD Codes: N17.9 - Acute kidney failure, unspecified Plan: Resolving/resolved. Cr 0.69 on 04/28 -Creatinine elevated at 1.31 on admit -Baseline 0.80 on 02/01/17 -Fluids as above -Avoid nephrotoxic agents 04-27-2017 Will continue to monitor with continued IV hydration. 04/28: as above. IVF; appears to have resolved (4) Oral thrush ICD Codes: B37.0 - Candidal stomatitis Plan: -Nystatin swish and swallow -HIV panel pending (5) Multiple substance abuse ICD Codes: F19.10 - Other psychoactive substance abuse, uncomplicated Plan: -UDS positive for opiates, cocaine, and cannabinoids -Negative alcohol -High risk of withdrawal during hospitalization -Supportive care 04-27-2017 This patient does note previous acute narcotic withdrawal symptoms when narcotic medications have been stopped. His blood pressure has been low so will not start clonidine at this time. In order to control his pain will start him on a small schedule dose of methadone 2.5 mg Q8H. Will plan to increase as needed for pain control. 04/28: increased methadone to 20mg daily; BP stable; discussed need for pt to establish with methadone/suboxone clinic as outpt (6) Depression ICD Codes: F32.9 - Major depressive disorder, single episode, unspecified Plan: -Patient reports history of depression and PTSD -Not currently on any medications -Currently in an outpatient rehabilitation program for substance abuse -Consider psych consult if worsens during this hospitalization (7) FEN/DVT PPX/GI PPX/Nursing Orders Plan: Fluids: NS bolus 1L followed by continuous NS IVF @ 100ml/hr Electrolytes: Will monitor and replace as needed Nutrition: Diabetic diet DVT Prophylaxis: Heparin subcutaneous Q8h GI Prophylaxis: Not required Constipation prophylaxis: Constipation regimen PRN Medications Tylenol 650 mg by mouth every 4 hours when necessary pain 1-10 or temperature greater than 100.4F Zofran 4 mg IV push every 6 hours when necessary nausea vomiting -Vitals Q4h -Monitor I's and O's -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
--- NOTE | 2017-04-28 16:12 | HHI.PR ---
Subjective Remarks no new coplaints, definitely feeling better today iv pole/sling not set up Objective Vital Signs Date Time Temp Pulse Resp B/P (MAP) Pulse Ox O2 Delivery O2 Flow Rate FiO2 04/28/17 15:23 15 04/28/17 14:00 66 04/28/17 12:28 17 04/28/17 12:00 96.8 76 22 113/97 (102) 97 04/28/17 12:00 76 04/28/17 10:00 78 04/28/17 08:00 67 04/28/17 08:00 98.8 67 25 112/62 (79) 96 04/28/17 06:00 69 04/28/17 04:00 65 04/28/17 04:00 98.8 65 15 120/74 (89) 95 04/28/17 02:00 72 04/28/17 00:00 98.8 73 13 113/70 (84) 97 04/28/17 00:00 73 04/27/17 22:00 72 04/27/17 20:00 99.1 70 18 109/59 (76) 99 04/27/17 20:00 70 04/27/17 18:00 68 24 98 04/27/17 18:00 68 04/27/17 17:00 76 04/27/17 17:00 76 17 111/56 (74) 95 I/O 04/27/17 04/27/17 04/27/17 04/28/17 04/28/17 04/28/17 07:00 15:00 23:00 07:00 15:00 23:00 Intake Total 4273.7 ml 100 ml 3008 ml 2220 ml 1200 ml Output Total 925 ml 4050 ml 2350 ml Balance 3348.7 ml 100 ml 3008 ml -1830 ml -1150 ml Intake Oral 720 ml 720 ml 1920 ml 750 ml IV Total 3553.7 ml 100 ml 2288 ml 300 ml 450 ml Output Urine Total 925 ml 4050 ml 2350 ml # Voids 6 # Bowel Movements 1 Result Diagram: 04/28/17 1232 04/28/17 1232 Objective Remarks i changed the packing/dsg with the nurse this afternoon; much improved; edema and erythema significantly improved/resolved moving all fingers normally no streaking AA x O x 3 very pleasant today lying comfortably in his bed Assessment and Plan Problem List: (1) Cellulitis of left arm ICD Codes: L03.114 - Cellulitis of left upper limb Status: Acute Plan: ontinue pkg and dsg changes iv abx strict elevation of the left forearm Sam Rock III, MD Apr 28, 2017 16:12
[2017-04-28] MEDS ORDERED: REMOVE OLD PATCH T-DERMAL SCH (21:00)
[2017-04-28] MEDS ORDERED: INSULIN DETEMIR 100 UNITS/ML VIAL SQ SCH (21:00)
[2017-04-29] VITALS: BP 103/66; PULSE 60; RESP 12; TEMP 98.3; O2SAT 97
[2017-04-29 02:00] VITALS: PULSE 61
[2017-04-29] MEDS: AZTREONAM INJ 2,000 MG in SODIUM CHLORIDE 0.9% INJ 100 ML IV SCH (03:55)
[2017-04-29] MEDS: HEPARIN SODIUM - SQ 10,000 UNITS/ML VIAL SQ SCH (03:56)
[2017-04-29] MEDS: metroNIDAZOLE 500 MG INJ 100 ML IV SCH (03:56)
[2017-04-29] MEDS: VANCOMYCIN 1,000 MG/NS 250 ML IV SCH ×2 (03:56)
[2017-04-29 04:00] VITALS: BP 142/85; PULSE 64; RESP 17; TEMP 98; O2SAT 100
[2017-04-29 04:25] LABS: AUTOMATED NEUTROPHIL # 4.5 TH/MM3 (1.8-7.7); BASOPHIL # 0.1 TH/MM3 (0-0.2); EOSINOPHIL # 0.2 TH/MM3 (0-0.4); EOSINOPHIL % 1.7 % (0.0-4.0); HEMATOCRIT 41.5 % (39.0-51.0); HEMO FLAGS DIFF FINAL; LYMPH % 40.4 % (9.0-44.0); LYMPHOCYTE # 3.8 TH/MM3 (1.0-4.8); MEAN CELL VOLUME 90.3 FL (80.0-100.0); MEAN CORPUSCULAR HEMOGLOBIN 30.2 PG (27.0-34.0); MEAN CORPUSCULAR HGB CONC 33.4 % (32.0-36.0); MONO % 8.5 % (0.0-8.0); NEUT % 48.4 % (16.0-70.0); PLATELET COUNT 336 TH/MM3 (150-450); RED BLOOD COUNT 4.59 MIL/MM3 (4.50-5.90); RED CELL DISTRIBUTION WIDTH 14.2 % (11.6-17.2); WHITE BLOOD COUNT 9.4 TH/MM3 (4.0-11.0)
[2017-04-29 04:50] LABS: ALKALINE PHOSPHATASE 186 U/L (45-117); ALT (GPT) 38 U/L (12-78); ANION GAP 8 MEQ/L (5-15); AST (GOT) 67 U/L (15-37); BICARBONATE 21.8 MEQ/L (21.0-32.0); BLOOD UREA NITROGEN 15 MG/DL (7-18); CHLORIDE 101 MEQ/L (98-107); GLOMERULAR FILTRATION RATE 112 ML/MIN (>89); POTASSIUM 4.4 MEQ/L (3.5-5.1); SODIUM (NA) 131 MEQ/L (136-145); TOTAL BILIRUBIN ADULT 0.2 MG/DL (0.2-1.0)
[2017-04-29 06:00] VITALS: PULSE 64
[2017-04-29] MEDS: INSULIN ASPART SUPPLEMENTAL SCALE SQ SCH (08:00)
[2017-04-29] MEDS: DOCUSATE SODIUM 50 MG/SENNA 8.6 MG TAB PO SCH (08:05)
[2017-04-29] MEDS: SODIUM CHLORIDE 0.9% FLUSH 10 ML FLUSH IV FLUSH SCH (08:05)
[2017-04-29] MEDS: NYSTATIN SUSP 500,000 U/5 ML CUP SWISH-SWAL SCH (08:05)
[2017-04-29] MEDS: SODIUM CHLOR 0.9% 1000 ML INJ 1,000 ML IV SCH (08:06)
[2017-04-29] MEDS ORDERED: INSULIN DETEMIR 100 UNITS/ML VIAL SQ SCH (09:00)
[2017-04-29] MEDS ORDERED: METHADONE HCL 10 MG TAB PO SCH (09:00)
[2017-04-29] MEDS ORDERED: NICOTINE 21 MG/24 HR PATCH T-DERMAL SCH (09:00)
--- NOTE | 2017-04-29 09:31 | HHI.FPPN ---
Subjective Remarks Patient is doing well this morning. He was able to get some sleep overnight. He has pain in his arm but he states it is fine. He would like to go home today and will need help with medications. He denies fever or nausea. Objective Vitals Vital Signs Date Time Temp Pulse Resp B/P (MAP) Pulse Ox O2 Delivery O2 Flow Rate FiO2 04/29/17 06:00 64 04/29/17 04:00 98.0 64 17 142/85 (104) 100 04/29/17 04:00 64 04/29/17 02:00 61 04/29/17 00:00 98.3 60 12 103/66 (78) 97 04/29/17 00:00 60 04/28/17 22:00 62 04/28/17 20:00 73 04/28/17 20:00 98.3 73 17 109/78 (88) 98 04/28/17 19:52 96 21 04/28/17 18:00 64 04/28/17 16:00 98.6 61 12 113/65 (81) 96 04/28/17 16:00 61 04/28/17 15:23 15 04/28/17 14:00 66 04/28/17 12:28 17 04/28/17 12:00 96.8 76 22 113/97 (102) 97 04/28/17 12:00 76 04/28/17 10:00 78 I/O 04/28/17 04/28/17 04/28/17 04/29/17 04/29/17 04/29/17 07:00 15:00 23:00 07:00 15:00 23:00 Intake Total 2220 ml 1200 ml 1584 ml 2300 ml Output Total 4050 ml 2350 ml 550 ml 1600 ml Balance -1830 ml -1150 ml 1034 ml 700 ml Intake Oral 1920 ml 750 ml 850 ml IV Total 300 ml 450 ml 1584 ml 1450 ml Output Urine Total 4050 ml 2350 ml 550 ml 1600 ml # Bowel Movements 0 Result Diagram: 04/29/1740404/29/17404 Objective Remarks O. CONSTITUTIONAL/GEN: Slender, mildly cachectic male, in NAD. EYES: conjunctiva normal, PERRLA, EOMI. LUNGS: clear A-P, respiratory effort is normal. CARDIOVASCULAR: RR without murmur or gallop. No significant edema. GI/ABD: soft without masses, without organomegaly. NEURO: No focal deficits. SKIN: color normal, no rashes noted. HEME/LYMPH: no bruising, petechia or significant adenopathy MUSC: back is normal in appearance. Extremities are normal in appearance. Left proximal forearm/elbow are bandaged. Mild erythema over skin below elbow. Full range of motion of elbow (mod pain) and hand/wrist function PSYCH/MENTAL STATUS: Alert and oriented x 3. Procedures Bedside I&D and debridement of left forearm cellulitis w/o abscess A/P Assessment and Plan 41 year old male with a past medical history of uncontrolled diabetes presents in hyperosmolar hyperglycemic state with a left arm abscess/cellulitis with no history of antibiotics. He was admitted for management with IV fluids, insulin, and IV antibiotics for the abscess. Hand surgery was consulted to assist with management of the left arm abscess and performed I&D at bedside. Wound cultures grew normal skin marty on preliminary report. Will discuss with Dr. Murrieta Discharge Planning Initial plan was to discharge patient today pending the final result of his wound culture. Patient was to receive a month supply of Lantus and case management was exploring courtesy visits to the wound care clinic for his left arm. However, patient decided to leave AGAINST MEDICAL ADVICE this morning. Problem List: (1) Uncontrolled type 2 diabetes mellitus with hyperosmolar nonketotic hyperglycemia ICD Codes: E11.00 - Type 2 diabetes mellitus with hyperosmolarity without nonketotic hyperglycemic-hyperosmolar coma ([facility]) Status: Resolved Plan: -Serum glucose 1217 on admission -A1c 17.9 -Serum sodium 131 on 04/29 -Continue Accu-Cheks with moderate dose sliding scale insulin -Increase Levemir to 20 units twice a day (2) Abscess of arm, left ICD Codes: L02.414 - Cutaneous abscess of left upper limb Plan: -Continue vancomycin 1 g IV every 24 hours with pharmacy consult to cover gram positives -Add Aztreonam 2 g every 8 hours IV - cover gram-negatives -Flagyl 500 mg every 6 hours IV for anaerobes -Methadone 20 mg by mouth twice a day -Toradol 30 mg IV every 6 hours PRN -Wound Gram stain showing gram-positive cocci in pairs -Wound culture normal skin marty in preliminary report -Blood cultures NGTD x2 days -Continue arm elevation. Dr. Rock (3) Oral thrush ICD Codes: B37.0 - Candidal stomatitis Plan: -Nystatin swish and swallow -HIV panel pending (4) Multiple substance abuse ICD Codes: F19.10 - Other psychoactive substance abuse, uncomplicated Plan: -UDS positive for opiates, cocaine, and cannabinoids -Negative alcohol -High risk of withdrawal during hospitalization -Supportive care -Continue methadone to 20mg daily; BP WNL; patient will benefit from methadone/ suboxone clinic as outpt (5) Depression ICD Codes: F32.9 - Major depressive disorder, single episode, unspecified Plan: -Patient reports history of depression and PTSD -Not currently on any medications -Currently in an outpatient rehabilitation program for substance abuse -Consider psych consult if worsens during this hospitalization (6) FEN/DVT PPX/GI PPX/Nursing Orders Plan: Fluids: IV and oral fluids Electrolytes: Will monitor and replace as needed Nutrition: Diabetic diet DVT Prophylaxis: Heparin subcutaneous Q8h GI Prophylaxis: Not required Constipation prophylaxis: Constipation regimen PRN Medications Tylenol 650 mg by mouth every 4 hours when necessary pain 1-10 or temperature greater than 100.4F Zofran 4 mg IV push every 6 hours when necessary nausea vomiting -Vitals Q4h -Monitor I's and O's -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
[2017-04-29] MEDS ORDERED: PHARMACY ORDERED LAB ONE (12:45)
--- NOTE | 2017-04-29 21:13 | PD.AMA ---
Against Medical Advice Note Pt Condition on Discharge: Stable AMA Statement Patient Lasha Garcia has decided to leave the hospital against medical advice. This patient has the capacity to refuse care and understands the risks of leaving, including permanent disability and/or , and has had an opportunity to ask questions about his condition. The patient has been informed that he may return for care at any time, and follow up has been arranged/ advised. Latanya Fierro MD R2 Apr 29, 2017 21:13
[2017-05-02 11:52] LABS: HCV RNA PCR IU/ML 33800000 IU/mL (0-14); HCV RNA PCR LOGIU/ML 7.53 (0-1.18)
[2017-05-03 03:50] LABS: HEPATITIS C RNA GENOTYPE 1a (NOT DETECTD)
== END 2017-04-29 09:29 | disposition left against medical advice (07) | DRG 602 ==
LOC: NEPC 19:01 → NEDA 20:31 → HIMW 04-27 00:40
PROVIDERS: ADMIT Family Medicine; ATTEND Family Medicine
PROC: 0HDEXZZ Extraction of Left Lower Arm Skin, External Approach (ICD-10-PCS; principal; 2017-04-27)
DX: L02.414 Cutaneous abscess of left upper limb (principal); E11.00 Type 2 diabetes mellitus with hyperosmolarity without nonketotic hyperglycemic-hyperosmolar coma (NKHHC); R64 Cachexia; N17.9 Acute kidney failure, unspecified; B37.0 Candidal stomatitis; E87.1 Hypo-osmolality and hyponatremia; Z68.1 Body mass index [BMI] 19.9 or less, adult; L03.114 Cellulitis of left upper limb; I10 Essential (primary) hypertension; H91.91 Unspecified hearing loss, right ear; F17.210 Nicotine dependence, cigarettes, uncomplicated; F19.10 Other psychoactive substance abuse, uncomplicated; F31.9 Bipolar disorder, unspecified; F43.10 Post-traumatic stress disorder, unspecified; Z59.0 Homelessness; Z79.4 Long term (current) use of insulin; Z83.3 Family history of diabetes mellitus; Z91.14 Patient's other noncompliance with medication regimen
CPT/HCPCS: 36600; 71010; 76882; 80048; 80053; 80061; 80074; 80202; 80307; 81001; 82010; 82805; 82947; 82948; 83036; 83605; 83690; 83735; 84100; 84443; 85025; 85027; 85610; 85730; 87040; 87070; 87205; 87522; 87535; 87641; 87902; 93005; G0481; J1644; J1815; J1817; J1885; J2405; J3370; J3480; J7030; J7050

== ENCOUNTER 2017-06-18 17:38 | Emergency (ER) | payer OTHER ==
[2017-06-18 17:49] VITALS: BP 129/77; PULSE 88; RESP 18; TEMP 98.1; O2SAT 98
== END 2017-06-18 19:27 | disposition left against medical advice (07) ==
LOC: NEDAMB 17:38
DX: R68.89 Other general symptoms and signs (principal); Z53.21 Procedure and treatment not carried out due to patient leaving prior to being seen by health care provider
CPT/HCPCS: 99281

== ENCOUNTER 2017-06-18 20:10 | Inpatient (IN) | payer OTHER ==
[~2017-06-18] VITALS: Ht 177.8 cm; Wt 61.5 kg
[2017-06-18 20:11] VITALS: BP 110/72; PULSE 98; RESP 18; TEMP 98.5; O2SAT 98
[2017-06-19] VITALS (13 sets, daily range): BP systolic 99–135; BP diastolic 55–85; PULSE 60–109; RESP 14–26; TEMP 98.3–99.5; O2SAT 98–100
[2017-06-19] MEDS ORDERED: ONDANSETRON HCL 4 MG/2 ML VIAL IV ONE
[2017-06-19] MEDS ORDERED: DICYCLOMINE HCL 20 MG/2 ML VIAL IM ONE
--- NOTE | 2017-06-19 00:47 | PD ---
HPI Chief Complaint: Skin Problem Time Seen by Provider: 23:46 Travel History International Travel<30 days: No Contact w/Intl Traveler<30days: No Traveled to known affect area: No History of Present Illness HPI This is a 41-year-old male who presents to the emergency department with high blood sugar and an abscess on his forearm. The abscess is been there for 3 days , constant, moderate severity associated with pain in his arm. He also says that for 2 days he's been an opiate withdrawal and he has nausea, vomiting and diarrhea. He says his blood sugars been running high. He says he has no insulin at home. He was recently admitted here for hyperglycemia. He was supposed to come back to hand picker a packet with insulin but he never did. Now he is interested in checking into a detox. [facility] Past Medical History Bipolar Disorder: Yes Depression: Yes Cardiovascular Problems: Yes (HTN) Diabetes: Yes Patient Takes Glucophage: No Diminished Hearing: Yes (RIGHT EAR) Hypertension: Yes Immunizations Current: Yes Past Surgical History Appendectomy: Yes Genitourinary Surgery: Yes (part of right testicle removed ) Social History Alcohol Use: No (DENIES) Tobacco Use: Yes (06/10 PPD) Substance Use: Yes (OPIATES, "ANYTHING I CAN GET") Allergies-Medications (Allergen,Severity, Reaction): Coded Allergies: penicillin G (Verified Allergy, Unknown, 06/18/17) Reported Meds & Prescriptions Reported Meds & Active Scripts Active Novolin R Inj (Insulin Human Regular) 1,000 Unit/10 Ml Vial 1 Unit SQ DIRECTED 30 Days Sliding Scale As Directed. accu-check AC/HS with regular insulin coverage; 150-200 two units 201-250 four units 251-300 six units 301-350 eight units 350-400 ten units inform PCP if < 70 or > 400. Metformin (Metformin HCl) 1,000 Mg Tab 1,000 Mg PO BIDPC 30 Days With meals Lantus Inj (Insulin Glargine) 1,000 Unit/10 Ml Vial 20 Units SQ BID 30 Days Review of Systems Except as stated in HPI: all other systems reviewed are Neg Physical Exam Narrative GENERAL:Well appearing, no acute distress SKIN: 3 cm abscess, fluctuant on the dorsal aspect of the left forearm with some surrounding erythema but no induration. HEAD: Atraumatic. Normocephalic. EYES: Pupils equal and round. No injection or drainage. ENT: Moist mucous membranes NECK: Trachea midline. CARDIOVASCULAR: Regular rate and rhythm. No murmur appreciated. RESPIRATORY: Clear to auscultation. Breath sounds equal bilaterally. GASTROINTESTINAL: Abdomen soft, non-tender, nondistended. MUSCULOSKELETAL: No obvious deformities. NEUROLOGICAL: Awake and alert. No obvious cranial nerve deficits. Moving all extremities. PSYCHIATRIC: Appropriate mood and affect; insight and judgment normal. Data Data Last Documented VS Vital Signs Date Time Temp Pulse Resp B/P (MAP) Pulse Ox O2 Delivery O2 Flow Rate FiO2 06/18/17 20:11 98.5 98 18 110/72 (85) 98 Room Air Orders Orders Complete Blood Count With Diff (06/18/17 20:23) Comprehensive Metabolic Panel (06/18/17 20:23) ^ Insert Iv (06/18/17 23:51) Ondansetron Inj (Zofran Inj) (06/19/17 00:00) Dicyclomine Inj (Bentyl Inj) (06/19/17 00:00) MDM Medical Decision Making Medical Screen Exam Complete: Yes Emergency Medical Condition: Yes Interpretation(s) Afebrile, tachycardic, normotensive Differential Diagnosis Abscess, cellulitis, sepsis, DKA, hyperglycemia Narrative Course This is a 41-year-old male who has a history of diabetes and IV drug abuse who presents to the emergency department with high blood sugar and the forearm abscess. He was placed on a monitor and an IV was established. He is very symptomatic from opiate withdrawal. Labs will be obtained. Patient will likely require insulin, IV fluids and incision and drainage of his left forearm. Tram Garcia MD Jun 19, 2017 00:47
[2017-06-19] MEDS ORDERED: LIDOCAINE HCL 1% PF 30 ML VIAL INFIL ONE (01:00)
[2017-06-19] MEDS ORDERED: LORazepam 2 MG/ML VIAL IV PUSH ONE (01:00)
[2017-06-19 01:10] LABS: AUTOMATED NEUTROPHIL # 14.2 TH/MM3 (1.8-7.7); BASOPHIL # 0.1 TH/MM3 (0-0.2); BASOPHIL % 0.4 % (0.0-2.0); EOSINOPHIL # 0.1 TH/MM3 (0-0.4); EOSINOPHIL % 0.6 % (0.0-4.0); HEMATOCRIT 46.4 % (39.0-51.0); HEMOGLOBIN 15.4 GM/DL (13.0-17.0); LYMPH % 5.9 % (9.0-44.0); LYMPHOCYTE # 0.9 TH/MM3 (1.0-4.8); MEAN CELL VOLUME 92.5 FL (80.0-100.0); MEAN CORPUSCULAR HEMOGLOBIN 30.7 PG (27.0-34.0); MEAN CORPUSCULAR HGB CONC 33.2 % (32.0-36.0); MEAN PLATELET VOLUME 9.5 FL (7.0-11.0); MONO % 2.6 % (0.0-8.0); MONOCYTE # 0.4 TH/MM3 (0-0.9); NEUT % 90.5 % (16.0-70.0); PLATELET COUNT 389 TH/MM3 (150-450); RED BLOOD COUNT 5.02 MIL/MM3 (4.50-5.90); RED CELL DISTRIBUTION WIDTH 14.6 % (11.6-17.2); WHITE BLOOD COUNT 15.7 TH/MM3 (4.0-11.0)
[2017-06-19] MEDS ORDERED: PROMETHAZINE INJ 25 MG/ML VIAL IM ONE (01:30)
[2017-06-19] MEDS ORDERED: INSULIN HUMAN REGULAR 1,000 UNITS/10 ML VIAL IV PUSH ONE (01:45)
[2017-06-19] MEDS ORDERED: SODIUM CHLOR 0.9% 1000 ML INJ 1,000 ML IV ONE ×2 (01:45)
[2017-06-19] MEDS ORDERED: CLINDAMYCIN INJ 600 MG in SODIUM CHLORIDE 0.9% INJ 100 ML IV ONE (01:45)
[2017-06-19 02:14] LABS: ALBUMIN 2.9 GM/DL (3.4-5.0); ALKALINE PHOSPHATASE 223 U/L (45-117); ALT (GPT) 56 U/L (12-78); AST (GOT) 46 U/L (15-37); BICARBONATE 25.1 MEQ/L (21.0-32.0); BLOOD UREA NITROGEN 17 MG/DL (7-18); CALCIUM 8.4 MG/DL (8.5-10.1); CHLORIDE 84 MEQ/L (98-107); CREATININE 1.03 MG/DL (0.60-1.30); GLOMERULAR FILTRATION RATE 79 ML/MIN (>89); TOTAL BILIRUBIN ADULT 0.5 MG/DL (0.2-1.0); TOTAL PROTEIN 7.4 GM/DL (6.4-8.2)
--- NOTE | 2017-06-19 02:24 | PD ---
Physical Exam Date Seen by Provider: Jun 19, 2017 Time Seen by Provider: 02:22 Narrative Skin: Patient has a 4 x 6 cm abscess to the left anterior mid forearm. Positive fluctuance, erythema and tenderness. Data Data Last Documented VS Vital Signs Date Time Temp Pulse Resp B/P (MAP) Pulse Ox O2 Delivery O2 Flow Rate FiO2 06/18/17 20:11 98.5 98 18 110/72 (85) 98 Room Air Orders Orders Complete Blood Count With Diff (06/18/17 20:23) Comprehensive Metabolic Panel (06/18/17 20:23) ^ Insert Iv (06/18/17 23:51) Ondansetron Inj (Zofran Inj) (06/19/17 00:00) Dicyclomine Inj (Bentyl Inj) (06/19/17 00:00) Lidocaine Pf 1% Inj (Xylocaine-Mpf 1% In (06/19/17 01:00) Lorazepam Inj (Ativan Inj) (06/19/17 01:00) Promethazine Inj (Phenergan Inj) (06/19/17 01:30) Sodium Chlor 0.9% 1000 Ml Inj (Ns 1000 M (06/19/17 01:45) Insulin Human Regular Inj (Novolin R Inj (06/19/17 01:45) Sodium Chlor 0.9% 1000 Ml Inj (Ns 1000 M (06/19/17 01:45) Clindamycin Inj (Cleocin Inj) (06/19/17 01:45) Wound Culture And Gram Stain (06/19/17 02:18) Vancomycin Inj (Vancomycin Inj) (06/19/17 02:30) Labs Laboratory Tests Test 06/19/17 00:40 06/19/17 01:30 White Blood Count 15.7 TH/MM3 Red Blood Count 5.02 MIL/MM3 Hemoglobin 15.4 GM/DL Hematocrit 46.4 % Mean Corpuscular Volume 92.5 FL Mean Corpuscular Hemoglobin 30.7 PG Mean Corpuscular Hemoglobin Concent 33.2 % Red Cell Distribution Width 14.6 % Platelet Count 389 TH/MM3 Mean Platelet Volume 9.5 FL Neutrophils (%) (Auto) 90.5 % Lymphocytes (%) (Auto) 5.9 % Monocytes (%) (Auto) 2.6 % Eosinophils (%) (Auto) 0.6 % Basophils (%) (Auto) 0.4 % Neutrophils # (Auto) 14.2 TH/MM3 Lymphocytes # (Auto) 0.9 TH/MM3 Monocytes # (Auto) 0.4 TH/MM3 Eosinophils # (Auto) 0.1 TH/MM3 Basophils # (Auto) 0.1 TH/MM3 CBC Comment AUTO DIFF Differential Comment AUTO DIFF CONFIRMED Platelet Estimate HIGH Platelet Morphology Comment NORMAL Red Cell Morphology Comment NORMAL Blood Urea Nitrogen 17 MG/DL Creatinine 1.03 MG/DL Random Glucose 757 MG/DL Total Protein 7.4 GM/DL Albumin 2.9 GM/DL Calcium Level 8.4 MG/DL Alkaline Phosphatase 223 U/L Aspartate Amino Transf (AST/SGOT) 46 U/L Alanine Aminotransferase (ALT/SGPT) 56 U/L Total Bilirubin 0.5 MG/DL Sodium Level 121 MEQ/L Potassium Level 3.9 MEQ/L Chloride Level 84 MEQ/L Carbon Dioxide Level 25.1 MEQ/L Anion Gap 12 MEQ/L Estimat Glomerular Filtration Rate 79 ML/MIN MDM Medical Record Reviewed: Yes Supervised Visit with JEANNIE: Yes Interpretation(s) CBC & BMP Diagram 06/19/17 00:40 06/19/17 01:30 Total Protein 7.4, Albumin 2.9 L, Calcium Level 8.4 L, Alkaline Phosphatase 223 H, Aspartate Amino Transf (AST/SGOT) 46 H, Alanine Aminotransferase (ALT/SGPT) 56, Total Bilirubin 0.5 Differential Diagnosis MDM: High Differential diagnoses: Abscess, folliculitis, cellulitis, lymphangitis, abrasion, contact dermatitis, IV drug abuse, diabetes mellitus, uncontrolled diabetes, DKA Narrative Course IV access is obtained. Patient's given 2 L bolus of saline, 10 units regular insulin IV, 600 mg of clindamycin IV, and 1 g of vancomycin IV. An incision and drainage has been performed. Routine laboratory tests sent for analysis. Culture of the wound. Patient's sodium is 121 and a glucose of 757. Patient will necessitate hydration, glucose management, IV antibiotics and admission to the hospital. The case has been discussed with Dr. MENDOZA who is agreed to admit the patient today. This is left arm abscess with cellulitis, hyperglycemia, hyponatremia, uncontrolled type 2 diabetes mellitus with hyperosmolar nonketotic hyperglycemia , IV drug abuse Procedures Procedure Narrative I&D abscess: After the risks and benefits were discussed the following procedure was performed. The skin is prepped and draped in the usual sterile fashion using Betadine. The abscess is anesthetized with 1% lidocaine and 0.5% Marcaine. After adequate anesthesia, an 11 blade scalpel is used to make a 3 centimeter central incision. Perulant material is expressed and cultured. Loculations are broken up using curved Alina forceps. The wound is cleansed deeply using dilute Betadine and peroxide on Q-tips. The wound is packed open using iodoform gauze. A clean dressing is applied. The patient tolerated the procedure well. There was no complications. Follow-up instructions were given to the patient. Diagnosis Primary Impression: left forearm abscess with cellulitis Additional Impressions: hyperglycemia Uncontrolled type 2 diabetes mellitus with hyperosmolar nonketotic hyperglycemia hyponatremia IV drug abuse Condition: Stable Rell Hernandez Jun 19, 2017 02:24
[2017-06-19 02:27] LABS: SODIUM (NA) 121 MEQ/L (136-145)
[2017-06-19] MEDS ORDERED: VANCOMYCIN INJ 200 ML IV ONE (02:30)
[2017-06-19] MEDS ORDERED: VANCOMYCIN 1,000 MG/NS 250 ML IV ONE ×2 (02:30)
[2017-06-19 02:32] LABS: GLUCOSE,RANDOM 757 MG/DL (74-106)
[2017-06-19] MEDS ORDERED: NALOXONE HCL 0.4 MG/ML AMP IV PUSH PRN ×2 (03:00)
[2017-06-19] MEDS ORDERED: ONDANSETRON HCL 4 MG/2 ML VIAL IV PUSH ONE (03:00)
[2017-06-19] MEDS ORDERED: Vancomycin Consult Pharmacy 1 EA OTHER SCH (03:00)
[2017-06-19] MEDS ORDERED: SODIUM CHLORIDE 0.9% FLUSH 10 ML FLUSH IV FLUSH PRN ×2 (03:00)
[2017-06-19] MEDS ORDERED: cloNIDine HCL 0.1 MG TAB PO ONE (03:00)
[2017-06-19] MEDS ORDERED: MORPHINE SULFATE 4 MG/ML INJ IV PUSH ONE (03:00)
[2017-06-19] MEDS: LEVOFLOXACIN 750 MG PREMIX INJ 150 ML IV SCH (05:03)
[2017-06-19] MEDS ORDERED: DEXT 5%-NACL 0.9% 1000 ML INJ 1,000 ML IV SCH (08:58)
[2017-06-19] MEDS ORDERED: SODIUM CHLOR 0.9% 1000 ML INJ 1,000 ML IV SCH (08:58)
[2017-06-19] MEDS ORDERED: POTASSIUM CHLOR 40 MEQ PREMIX 100 ML IV PRN ×2 (09:00)
[2017-06-19] MEDS ORDERED: SODIUM BICARBONATE 8.4% SOLN 50 MEQ/50 ML VIAL IV PUSH PRN ×2 (09:00)
[2017-06-19] MEDS ORDERED: MISCELLANEOUS NURSING INFORMATION XX SCH (09:00)
[2017-06-19] MEDS ORDERED: POTASSIUM CHLOR 20 MEQ PREMIX 100 ML IV PRN ×6 (09:00)
[2017-06-19] MEDS ORDERED: SODIUM PHOSPHATE INJ 15 MMOL in SODIUM CHLORIDE 0.9% INJ 100 ML IV PRN (09:00)
[2017-06-19] MEDS ORDERED: CHLORHEXIDINE GLUCONATE 2 % 1 PACK (2 CLOTHS) TOP PRN (09:00)
[2017-06-19] MEDS ORDERED: SODIUM CHLORIDE 0.9% FLUSH 10 ML FLUSH IV FLUSH SCH ×2 (09:00)
--- NOTE | 2017-06-19 09:55 | HHI.HP ---
[facility] No Primary Care Physician Admission Diagnosis left forearm abscess with cellulitis, nonketotic hyperglycemia, hypo Diagnoses: Chief Complaint: Left hand abscess and increased blood sugar Travel History International Travel<30 Days: No Contact w/Intl Traveler <30 Da: No Traveled to Known Affected Are: No History of Present Illness Are 1 years old male IVDU presented to the ED with left forearm abscess and increased blood sugar the 700, abscess has been going on for 3 days with worsening pain, patient stated he is addicted on morphine but he is going through detox and getting methadone, patient also stated he hasn't been getting his insulin due to running out of it. In ED BMP showed no anion gap, but hyperglycemia in the 700 with pseudohyponatremia Review of Systems All systems reviewed and was positive for what is mentioned in history of present illness otherwise negative Past Family Social History Past Medical History Bipolar Impression Hypertension Diabetes mellitus Partial right orchectomy Past Surgical History as above Allergies: Coded Allergies: penicillin G (Verified Allergy, Unknown, 06/18/17) Family History Review with the patient,not aware of significant medical history runs in his family Social History Half pack per day Opiate "anything I can get " Denied alcoho Physical Exam Vital Signs Vital Signs Date Time Temp Pulse Resp B/P (MAP) Pulse Ox O2 Delivery O2 Flow Rate FiO2 06/19/17 07:59 76 14 110/76 (87) 98 Room Air 06/19/17 04:01 62 16 104/65 (78) 99 Room Air 06/19/17 03:42 60 16 100/56 (71) 99 Room Air 06/19/17 02:58 82 16 106/72 (83) 99 Room Air 06/19/17 00:30 80 18 112/85 (94) 98 Room Air 06/18/17 20:11 98.5 98 18 110/72 (85) 98 Room Air Physical Exam GENERAL: This is a well-nourished, well-developed patient, in no apparent distress. SKIN: Multiple sites of needle stick tracks HEAD: Atraumatic. Normocephalic. EYES: Pupils equal round and reactive. Extraocular motions intact. No scleral icterus. ENT: Nose without bleeding, or drainage, Airway patent. NECK: Trachea midline. Supple CARDIOVASCULAR: Regular rate and rhythm without murmurs, gallops, or rubs. RESPIRATORY: Fair air entry bilaterally. No wheezes, rales, or rhonchi. GASTROINTESTINAL: Abdomen soft, non-tender, nondistended. Positive bowel sounds MUSCULOSKELETAL: Left upper extremity anterior forearm with wound packing placed Extremities without clubbing, cyanosis, or edema. Pedal pulses appreciated NEUROLOGICAL: Awake and alert. Moves all extremity. Normal speech.no focal neurological deficit Laboratory Laboratory Tests Test 06/19/17 00:40 06/19/17 01:30 White Blood Count 15.7 Red Blood Count 5.02 Hemoglobin 15.4 Hematocrit 46.4 Mean Corpuscular Volume 92.5 Mean Corpuscular Hemoglobin 30.7 Mean Corpuscular Hemoglobin Concent 33.2 Red Cell Distribution Width 14.6 Platelet Count 389 Mean Platelet Volume 9.5 Neutrophils (%) (Auto) 90.5 Lymphocytes (%) (Auto) 5.9 Monocytes (%) (Auto) 2.6 Eosinophils (%) (Auto) 0.6 Basophils (%) (Auto) 0.4 Neutrophils # (Auto) 14.2 Lymphocytes # (Auto) 0.9 Monocytes # (Auto) 0.4 Eosinophils # (Auto) 0.1 Basophils # (Auto) 0.1 CBC Comment AUTO DIFF Differential Comment AUTO DIFF CONFIRMED Platelet Estimate HIGH Platelet Morphology Comment NORMAL Red Cell Morphology Comment NORMAL Blood Urea Nitrogen 17 Creatinine 1.03 Random Glucose 757 Total Protein 7.4 Albumin 2.9 Calcium Level 8.4 Alkaline Phosphatase 223 Aspartate Amino Transf (AST/SGOT) 46 Alanine Aminotransferase (ALT/SGPT) 56 Total Bilirubin 0.5 Sodium Level 121 Potassium Level 3.9 Chloride Level 84 Carbon Dioxide Level 25.1 Anion Gap 12 Estimat Glomerular Filtration Rate 79 Date/Time Source Procedure Growth Status 06/19/17 02:30 Wound Arm Gram Stain - Final Resulted 06/19/17 02:30 Wound Arm Wound Culture Pending Resulted Result Diagram: 06/19/173906/19/170 Caprini VTE Risk Assessment Caprini VTE Risk Assessment: No/Low Risk (score <= 1) Caprini Risk Assessment Model Point Value = 1 Point Value = 2 Point Value = 3 Point Value = 5 Age 41-60 Minor surgery BMI > 25 kg/m2 Swollen legs Varicose veins or History of unexplained or recurrent spontaneous Oral contraceptives or hormone replacement Sepsis (< 1 month) Serious lung disease, including pneumonia (< 1 month) Abnormal pulmonary function Acute myocardial infarction Congestive heart failure (< 1 month) History of inflammatory bowel disease Medical patient at bed rest Age 61-74 Arthroscopic surgery Major open surgery (> 45 min) Laparoscopic surgery (> 45 min) Malignancy Confined to bed (> 72 hours) Immobilizing plaster cast Central venous access Age >= 75 History of VTE Family history of VTE Factor V Leiden Prothrombin [id number] Lupus anticoagulant Anticardiolipin antibodies Elevated serum homocysteine Heparin-induced thrombocytopenia Other congenital or acquired thrombophilia Stroke (< 1 month) Elective arthroplasty Hip, pelvis, or leg fracture Acute spinal cord injury (< 1 month) Prophylaxis Regimen Total Risk Factor Score Risk Level Prophylaxis Regimen 0-1 Low Early ambulation 2 Moderate Order ONE of the following: *Sequential Compression Device (SCD) *Heparin 5000 units SQ BID 3-4 Higher Order ONE of the following medications: *Heparin 5000 units SQ TID *Enoxaparin/Lovenox 40 mg SQ daily (WT < 150 kg, CrCl > 30 mL/min) *Enoxaparin/Lovenox 30 mg SQ daily (WT < 150 kg, CrCl > 10-29 mL/min) *Enoxaparin/Lovenox 30 mg SQ BID (WT < 150 kg, CrCl > 30 mL/min) AND/OR *Sequential Compression Device (SCD) 5 or more Highest Order ONE of the following medications: *Heparin 5000 units SQ TID (Preferred with Epidurals) *Enoxaparin/Lovenox 40 mg SQ daily (WT < 150 kg, CrCl > 30 mL/min) *Enoxaparin/Lovenox 30 mg SQ daily (WT < 150 kg, CrCl > 10-29 mL/min) *Enoxaparin/Lovenox 30 mg SQ BID (WT < 150 kg, CrCl > 30 mL/min) AND *Sequential Compression Device (SCD) Assessment and Plan Assessment and Plan uncontrolled DM HHS Pseudohyponatremia roght forarm abscess status post I&D in ED IDVU, reported being on methadone for detox leukocytosis DvT prophylaxis Plan: Admit to IMC Telemetry Iv fluid, be BMP stat look for anion gap positive Recent BMP showing normal anion gap, HHS I will apply DKA protocol for now until we get BMP expecting patient possibly has gone into DKA Discussed with the nurse Michi to cover for the abscess Sent for blood culture Consider 2-D echo on ID consultation if blood culture positive Monitor temperature SCD and heparin for DVT prophylaxis Addendum: Received result from the new BMP showing a benign gap, we will DC DKA protocol, continue iv fluid, will give his dose of home basal insulin and cover with sliding scale will start oral diet ADA 1800. Addendum 5:55 PM: I received a call from the nurse an ICU patient has been vomiting earlier today, I ordered another BMP now at 6 PM, I will order methadone in case this is related to opiate withdrawal, the nurse verified that patient has eaten earlier, repeated blood sugar now is 360, will monitor closely for any hyperglycemia and we will hang D5 half-normal saline, discussed with the nurse extensively Discussed Condition With Nurse in ED and in IMC Physician Certification 2 Midnight Certification Type: Admission for Inpatient Services Order for Inpatient Services The services are ordered in accordance with Medicare regulations or non- Medicare payer requirements, as applicable. In the case of services not specified as inpatient-only, they are appropriately provided as inpatient services in accordance with the 2-midnight benchmark. Estimated LOS (days): 3 days is the estimated time the patient will need to remain in the hospital, assuming treatment plan goals are met and no additional complications. Post-Hospital Plan: Not yet determined Kaur Pinto MD Jun 19, 2017 09:55
[2017-06-19 10:41] LABS: ALT (GPT) 59 U/L (12-78); AST (GOT) 48 U/L (15-37); BICARBONATE 26.8 MEQ/L (21.0-32.0); BLOOD UREA NITROGEN 10 MG/DL (7-18); CALCIUM 8.1 MG/DL (8.5-10.1); CHLORIDE 91 MEQ/L (98-107); CREATININE 0.79 MG/DL (0.60-1.30); GLOMERULAR FILTRATION RATE 107 ML/MIN (>89); LIPASE 187 U/L (73-393); MAGNESIUM 1.9 MG/DL (1.5-2.5); SODIUM (NA) 128 MEQ/L (136-145)
[2017-06-19 10:43] LABS: GLUCOSE,RANDOM 480 MG/DL (74-106)
[2017-06-19 10:45] LABS: ALKALINE PHOSPHATASE 219 U/L (45-117); TOTAL BILIRUBIN ADULT 0.6 MG/DL (0.2-1.0); TOTAL PROTEIN 7.7 GM/DL (6.4-8.2); TROPONIN I LESS THAN 0.02 NG/ML (0.02-0.05)
[2017-06-19] MEDS ORDERED: INSULIN REGULAR (IV INFUSION) 100 UNITS in SODIUM CHLORIDE 0.9% INJ 99 ML IV PRN (11:00)
[2017-06-19] MEDS ORDERED: DEXTROSE 50% IN WATER 50 ML VIAL(D50) IV PUSH PRN (14:00)
[2017-06-19] MEDS ORDERED: MEDIUM DOSE INSULIN NOVOLIN REGULAR SUPPLEMENTAL SCALE SQ SCH (14:00)
[2017-06-19] MEDS ORDERED: GLUCAGON 1 MG/ML VIAL OTHER PRN (14:00)
[2017-06-19] MEDS: MEDIUM DOSE INSULIN NOVOLIN REGULAR SUPPLEMENTAL SCALE SQ SCH ×3 (14:05→22:29)
[2017-06-19] MEDS: INSULIN DETEMIR 100 UNITS/ML VIAL SQ SCH ×2 (14:05→22:30)
[2017-06-19] MEDS ORDERED: MORPHINE SULFATE 2 MG/ML INJ IM PRN (14:15)
[2017-06-19] MEDS: MORPHINE SULFATE 2 MG/ML INJ IV PUSH PRN ×2 (14:24→18:08)
[2017-06-19] MEDS ORDERED: D5-1/2 NS + KCL 10 MEQ INJ 1,000 ML IV SCH (18:00)
[2017-06-19] MEDS ORDERED: ONDANSETRON HCL 4 MG/2 ML VIAL IV PUSH PRN (18:00)
[2017-06-19] MEDS: METHADONE HCL 10 MG TAB PO SCH (20:37)
[2017-06-19 21:44] LABS: BICARBONATE 23.7 MEQ/L (21.0-32.0); CALCIUM 8.1 MG/DL (8.5-10.1)
[2017-06-19] MEDS ORDERED: NICOTINE 21 MG/24 HR PATCH T-DERMAL ONE (21:45)
[2017-06-19] MEDS ORDERED: POTASSIUM CHLORIDE 20 MEQ CONTROLLED RELEASE TAB PO ONE (22:00)
[2017-06-19] MEDS: VANCOMYCIN 1,000 MG/NS 250 ML IV SCH ×2 (22:09)
[2017-06-19] MEDS: POTASSIUM CHLOR 10 MEQ PREMIX 100 ML IV SCH (22:10)
[2017-06-20] VITALS (12 sets, daily range): BP systolic 96–130; BP diastolic 60–74; PULSE 61–76; RESP 12–38; TEMP 98.2–98.9; O2SAT 96–99
[2017-06-20] MEDS: MORPHINE SULFATE 2 MG/ML INJ IV PUSH PRN ×5 (01:42→20:44)
[2017-06-20] MEDS: MEDIUM DOSE INSULIN NOVOLIN REGULAR SUPPLEMENTAL SCALE SQ SCH ×3 (02:00→08:32)
[2017-06-20] MEDS: POTASSIUM CHLOR 10 MEQ PREMIX 100 ML IV SCH (02:29)
[2017-06-20] MEDS: LEVOFLOXACIN 750 MG PREMIX INJ 150 ML IV SCH (02:29)
[2017-06-20] MEDS ORDERED: CHLORHEXIDINE GLUCONATE 2 % 1 PACK (2 CLOTHS) TOP SCH (04:00)
[2017-06-20 06:59] LABS: CREATININE 0.7 MG/DL (0.60-1.30)
[2017-06-20] MEDS: METHADONE HCL 10 MG TAB PO SCH ×2 (08:34→20:45)
[2017-06-20] MEDS: INSULIN DETEMIR 100 UNITS/ML VIAL SQ SCH ×2 (09:00→20:45)
[2017-06-20] MEDS ORDERED: DEXTROSE 50% IN WATER 50 ML VIAL(D50) IV PUSH PRN (10:45)
[2017-06-20] MEDS ORDERED: GLUCAGON 1 MG/ML VIAL OTHER PRN (10:45)
[2017-06-20] MEDS ORDERED: ACETAMINOPHEN 500 MG CPLT PO PRN (10:45)
--- NOTE | 2017-06-20 10:47 | HHI.PR ---
Subjective Remarks Follow up for left arm abscess in an IVDU, hyperglycemia, hypokalemia. Patient is currently doing well. He complains of left arm pain. No fever, chills. He also is complaining of burning sensation with IV KCL. Objective Vitals Vital Signs Date Time Temp Pulse Resp B/P (MAP) Pulse Ox O2 Delivery O2 Flow Rate FiO2 06/20/17 06:00 69 06/20/17 04:00 98.7 64 12 111/66 (81) 97 06/20/17 04:00 64 06/20/17 02:00 61 06/20/17 00:00 98.9 63 16 112/74 (87) 96 06/20/17 00:00 63 06/19/17 22:00 109 06/19/17 20:00 99.4 66 18 129/69 (89) 100 06/19/17 20:00 66 06/19/17 18:54 99.5 63 26 135/68 (90) 99 06/19/17 18:13 25 06/19/17 18:00 63 06/19/17 16:29 67 16 103/64 (77) 98 06/19/17 16:00 98.3 63 18 120/72 (88) 100 06/19/17 13:35 67 16 103/64 (77) 98 06/19/17 11:45 70 14 99/55 (70) 98 Room Air I/O 06/19/17 06/19/17 06/19/17 06/20/17 06/20/17 06/20/17 07:00 15:00 23:00 07:00 15:00 23:00 Intake Total 2254 ml 1100 ml 340 ml 1320 ml Output Total 550 ml 1100 ml Balance 2254 ml 1100 ml -210 ml 220 ml Intake Oral 100 ml 240 ml 720 ml IV Total 2254 ml 1000 ml 100 ml 600 ml Output Urine Total 300 ml 1100 ml Emesis 250 ml # Bowel Movements 1 Result Diagram: 06/19/17 0040 06/20/17 0554 Objective Remarks GENERAL: Alert, Oriented x 3, NAD. SKIN: Warm and dry. Left arm has an indurated area with an draining abscess. Left elbow has redness. HEAD: Normocephalic. EYES: No scleral icterus. No injection or drainage. NECK: Supple, trachea midline. No JVD or lymphadenopathy. CARDIOVASCULAR: Regular rate and rhythm without murmurs, gallops, or rubs. RESPIRATORY: Breath sounds equal bilaterally. No accessory muscle use. GASTROINTESTINAL: Abdomen soft, non-tender, nondistended. MUSCULOSKELETAL: No cyanosis, or edema. BACK: Nontender without obvious deformity. No CVA tenderness. Procedures None. A/P Problem List: (1) Abscess of arm, left ICD Code: L02.414 - Cutaneous abscess of left upper limb (2) IV drug abuse ICD Code: F19.10 - Other psychoactive substance abuse, uncomplicated Status: Acute (3) Uncontrolled diabetes mellitus ICD Code: E11.65 - Type 2 diabetes mellitus with hyperglycemia Status: Acute Assessment and Plan Mr. Garcia was admitted to the hospital due to hyperglycemia, left arm abscess. His Blood glucose was around 700 and elevated beta-hydroxybutyrate 1.64. Anion gap initially was 12. - Mild Diabetic ketoacidosis - Diabetes mellitus - Hypokalemia - Hyponatremia - patient was managed with SQ insulin. - Glucose improved from 757 --> 330. - Will increase Levemir from 20 to 30 units BID. Continue sliding scale insulin. - Add pre-meal insulin 6 units TIDAC. - Hypokalemia is likely due to insulin. - Patient is unable to tolerate IV KCL. Will replace with PO KCL - Hyponatremia was due to glucose. Improved to 131. - Left arm abscess - IVDU - Will consult ID ==> by the time ID saw patient, wound cx showed nai. - Blood cultures ordered. - Per ID, continue Diflucan and Vancomycin. - Appreciate Hand surgery input. Continue wound care. - Patient is heavily counselled against using IV heroin. He would benefit from rehab such as [facility]. - Will provide Acetaminophen, [place] and IV morphine PRN for pain. - Continue Methadone. Full code. Lovenox. Janie Baumann DO Jun 20, 2017 10:47
[2017-06-20] MEDS ORDERED: POTASSIUM CHLORIDE 10 MEQ CONTROLLED RELEASE TAB PO ONE (11:00)
[2017-06-20] MEDS: LORazepam 1 MG TAB PO PRN ×2 (11:24→20:45)
[2017-06-20] MEDS: INSULIN ASPART SUPPLEMENTAL SCALE SQ SCH ×3 (12:00→21:00)
[2017-06-20] MEDS: ACETAMINOPHEN/HYDROcodone 325 MG/7.5 MG TAB PO PRN ×3 (12:55→23:08)
--- NOTE | 2017-06-20 13:20 | PD.CONS ---
History of Present Illness Service Hand Surgery Consult Requested By Primary Reason for Consult L forearm abscess s/p I and D Primary Care Physician No Primary Care Physician Diagnoses: History of Present Illness 41M IVDU presented to the ED with left forearm abscess and increased blood sugar the 700, abscess has been going on for 3 days with worsening pain, patient stated he is addicted on morphine but he is going through detox and getting methadone, patient also stated he hasn't been getting his insulin due to running out of it. Abscess now s/p I and D in ED. Past Medical History Bipolar Impression Hypertension Diabetes mellitus Partial right orchectomy Past Surgical History as above Allergies: Coded Allergies: penicillin G (Verified Allergy, Unknown, 06/18/17) Family History Non contributory to presenting complaint Social History Half pack per day Opiate Denied alcohol Past Family Social History Allergies: Coded Allergies: penicillin G (Verified Allergy, Unknown, 06/18/17) Physical Exam Vital Signs Vital Signs Date Time Temp Pulse Resp B/P (MAP) Pulse Ox O2 Delivery O2 Flow Rate FiO2 06/20/17 10:00 64 06/20/17 09:34 18 06/20/17 08:00 98.6 68 15 106/68 (81) 99 06/20/17 08:00 68 06/20/17 06:00 69 06/20/17 04:00 98.7 64 12 111/66 (81) 97 06/20/17 04:00 64 06/20/17 02:00 61 06/20/17 00:00 98.9 63 16 112/74 (87) 96 06/20/17 00:00 63 06/19/17 22:00 109 06/19/17 20:00 99.4 66 18 129/69 (89) 100 06/19/17 20:00 66 06/19/17 18:54 99.5 63 26 135/68 (90) 99 06/19/17 18:13 25 06/19/17 18:00 63 06/19/17 16:29 67 16 103/64 (77) 98 06/19/17 16:00 98.3 63 18 120/72 (88) 100 06/19/17 13:35 67 16 103/64 (77) 98 Physical Exam NAD A/O x 3 moist mucous membranes mckayla non labored respirations Abd benign LUE 2cm healing I and D site on posterior forearm 3cm recent I and D site on anterior distal forearm Both with moderate erythema No additional fluctuance appreciated Both draining Laboratory Laboratory Tests Test 06/19/17 20:43 06/20/17 05:54 Blood Urea Nitrogen 11 Creatinine 1.00 0.70 Random Glucose 330 Calcium Level 8.1 Sodium Level 131 Potassium Level 2.7 Chloride Level 95 Carbon Dioxide Level 23.7 Anion Gap 12 Estimat Glomerular Filtration Rate 82 123 Date/Time Source Procedure Growth Status 06/19/17 02:30 Wound Arm Gram Stain - Final Resulted 06/19/17 02:30 Wound Arm Wound Culture Pending Resulted Result Diagram: 06/19/17 0040 06/20/17 0554 Assessment and Plan Problem List: (1) Abscess of arm, left ICD Codes: L02.414 - Cutaneous abscess of left upper limb Assessment and Plan 41M w/ forearm abscesses s/p I and D Showed nurse how to place iodoform wick packing Please have nursing change wick packing bid Abx per primary Agree w/ wound care consult Please call with questions Abdirashid Sinclair MD Jun 20, 2017 13:20
[2017-06-20] MEDS: MORPHINE SULFATE 4 MG/ML INJ IV PRN ×3 (13:57→23:08)
[2017-06-20] MEDS: FLUCONAZOLE 200 MG TAB PO SCH (16:15)
[2017-06-20] MEDS: VANCOMYCIN 1,000 MG/NS 250 ML IV SCH ×2 (16:19)
--- NOTE | 2017-06-20 17:05 | MB ---
cc: ERNIE COLE MD,MAHENDRA GRANGER DATE OF CONSULTATION: 06/20/[address] Mahendra Baumann. REASON FOR CONSULTATION Left arm cellulitis and abscess. IVDU. HISTORY OF PRESENT ILLNESS This is a 41-year-old white male who uses IV drugs. The patient presented to the emergency department with pain and swelling and obvious infection with cellulitis at the left forearm. The patient noted that it was ongoing for about three days before he came to the hospital. He really was admitted on 06/19. The patient was recently in the hospital for a similar problem in April and he left the hospital against medical advice after receiving some antibiotics in the hospital. The culture taken at that time had no growth. An area approximately 4 x 6 cm of abscess noted at the mid forearm in the emergency department. The patient underwent incision of the abscess in the emergency department and a culture was taken. The culture has Linda albicans moderate growth. The Gram stain showed many gram-positive cocci in pairs and chains also. He has been afebrile. Blood cultures were taken today. The white blood cell count was elevated at 15.7 with 90% neutrophils. This consultation is requested for antibiotic treatment. The patient has diabetes. His blood glucose on admission was 757. He is awake and alert and is in no acute distress. The patient injected the area of the arm with morphine with heroin prior to development of the abscess. PAST MEDICAL HISTORY 1. IV drug use. 2. Diabetes mellitus. 3. Hypertension. 4. Bipolar disorder. 5. History of right orchiectomy partial. ALLERGIES PENICILLIN. MEDICATIONS 1. Vancomycin. 2. Methadone. 3. [facility] 7.5 4. Ativan p.r.n. 5. Insulin. 6. Levaquin. SOCIAL HISTORY IV drug abuse. No alcohol. Positive tobacco half-a-pack a day. FAMILY HISTORY Noncontributory. REVIEW OF SYSTEMS Negative on 10-point review. PHYSICAL EXAMINATION GENERAL: This is a well-developed male who is in no acute distress. He is awake and alert and oriented. VITAL SIGNS: Temperature of 98.2, BP 90/60, respirations 18, heart rate 75. HEENT: The head is atraumatic. Extraocular movements grossly intact. Pupils reactive to light. No icterus. Oropharynx - moist mucosa without lesions. NECK: Supple. No adenopathy. LUNGS: Clear breath sounds. HEART: Regular S1 and S2 without murmurs. ABDOMEN: Bowel sounds present, soft, nontender. RECTAL: Not performed. EXTREMITY: The left forearm has a surgical dressing in place. There is packing into the abscess cavity with gauze. There is serous drainage on the dressing. No significant visible erythema. SKIN: No diffuse rash. NEUROLOGIC: No gross focal findings. PSYCHIATRIC: The patient appears calm and cooperative. LABORATORY DATA WBC 15.7, platelet count 389, hemoglobin 5.4, creatinine 0.70, estimated GFR 123. IMPRESSION Abscess following injection into the arm in patient who is an IV drug user. Culture showing Linda albicans along with normal skin marty. The culture is preliminary. RECOMMENDATIONS 1. Continue Vancomycin. 2. Begin p.o. Diflucan. 3. Discontinue Levaquin. 4. Monitor the cultures and if there is no additional bacteria the vancomycin can be changed to p.o. clindamycin and give the patient 7-10 days antibiotic treatment. If there is MRSA or other gram-positive bacteria which may not be amenable to p.o. antibiotics continue the vancomycin. The clindamycin - can be given at dose of 300 mg t.i.d. Thank you for this consultation. Ernie Cole MD FD/ADAN /3:54 PM /4:28 PM SWEETIE
[2017-06-20] MEDS: POTASSIUM CHLORIDE 10 MEQ CONTROLLED RELEASE TAB PO SCH (20:45)
[2017-06-20] MEDS ORDERED: REMOVE OLD PATCH T-DERMAL ONE (22:00)
[2017-06-21] VITALS (12 sets, daily range): BP systolic 121–141; BP diastolic 57–91; PULSE 60–87; RESP 12–69; TEMP 97.7–98.6; O2SAT 96–100
[2017-06-21] MEDS: MORPHINE SULFATE 2 MG/ML INJ IV PUSH PRN ×4 (04:20→21:52)
[2017-06-21] MEDS: LORazepam 1 MG TAB PO PRN ×3 (04:20→20:56)
[2017-06-21 05:56] LABS: BICARBONATE 22.2 MEQ/L (21.0-32.0); CALCIUM 8.3 MG/DL (8.5-10.1); CREATININE 0.68 MG/DL (0.60-1.30)
[2017-06-21] MEDS ORDERED: INSULIN DETEMIR 100 UNITS/ML VIAL SQ SCH (09:00)
[2017-06-21] MEDS: INSULIN ASPART SUPPLEMENTAL SCALE SQ SCH ×4 (09:24→20:57)
[2017-06-21] MEDS: INSULIN ASPART 1,000 UNITS/10 ML VIAL SQ SCH ×3 (09:24→17:08)
[2017-06-21] MEDS: ACETAMINOPHEN/HYDROcodone 325 MG/7.5 MG TAB PO PRN ×2 (09:25→17:28)
[2017-06-21] MEDS: METHADONE HCL 10 MG TAB PO SCH ×2 (09:25→20:56)
[2017-06-21] MEDS: FLUCONAZOLE 200 MG TAB PO SCH (09:26)
[2017-06-21] MEDS: ENOXAPARIN SODIUM 40 MG/0.4 ML SYRINGE SQ SCH (09:27)
[2017-06-21] MEDS: POTASSIUM CHLORIDE 10 MEQ CONTROLLED RELEASE TAB PO SCH (09:27)
[2017-06-21] MEDS ORDERED: PHARMACY ORDERED LAB ONE (09:45)
[2017-06-21] MEDS: VANCOMYCIN 1,000 MG/NS 250 ML IV SCH ×2 (12:35)
--- NOTE | 2017-06-21 17:21 | HHI.PR ---
Subjective Remarks This is a pleasant 41 y/o male with left arm abscess in an IVDU, Hyperglycemia, Hypokalemia, improving condition, seen in the presence of nurse, patient states he has high tolerance for narcotics, but not receiving any josiah of surgical management, was increase maintenance Morphine to 2 mg every three hours as needed for pain and removed breakthrough pain. continue Vancomycin as recommended by ID specialist. and Fluconazole due to positive wound culture for Linda Albicans. Objective Vital Signs Date Time Temp Pulse Resp B/P (MAP) Pulse Ox O2 Delivery O2 Flow Rate FiO2 06/21/17 12:00 98.0 65 17 123/57 (79) 97 06/21/17 10:00 60 06/21/17 08:00 98.5 87 30 121/66 (84) 96 06/21/17 08:00 87 06/21/17 06:00 69 06/21/17 04:00 97.7 67 17 127/70 (89) 97 06/21/17 04:00 67 06/21/17 02:00 68 06/21/17 00:00 98.1 74 12 126/80 (95) 100 06/21/17 00:00 84 06/20/17 22:00 76 06/20/17 20:00 72 06/20/17 20:00 98.9 72 38 130/60 (83) 97 06/20/17 19:03 33 06/20/17 18:47 18 06/20/17 18:00 71 I/O 06/20/17 06/20/17 06/20/17 06/21/17 06/21/17 06/21/17 07:00 15:00 23:00 07:00 15:00 23:00 Intake Total 1320 ml 1650 ml 480 ml Output Total 1100 ml 1825 ml 1300 ml Balance 220 ml -175 ml -820 ml Intake Oral 720 ml 1400 ml 480 ml IV Total 600 ml 250 ml Output Urine Total 1100 ml 1825 ml 1300 ml # Bowel Movements 0 Result Diagram: 06/19/17 0040 06/21/17 0435 Imaging no new Imaging studies. Procedures None Other Results Laboratory Tests Test 06/19/17 00:40 06/19/17 10:07 06/21/17 04:35 06/21/17 11:45 White Blood Count 15.7 TH/MM3 Red Blood Count 5.02 MIL/MM3 Hemoglobin 15.4 GM/DL Hematocrit 46.4 % Mean Corpuscular Volume 92.5 FL Mean Corpuscular Hemoglobin 30.7 PG Mean Corpuscular Hemoglobin Concent 33.2 % Red Cell Distribution Width 14.6 % Platelet Count 389 TH/MM3 Mean Platelet Volume 9.5 FL Neutrophils (%) (Auto) 90.5 % Lymphocytes (%) (Auto) 5.9 % Monocytes (%) (Auto) 2.6 % Eosinophils (%) (Auto) 0.6 % Basophils (%) (Auto) 0.4 % Neutrophils # (Auto) 14.2 TH/MM3 Lymphocytes # (Auto) 0.9 TH/MM3 Monocytes # (Auto) 0.4 TH/MM3 Eosinophils # (Auto) 0.1 TH/MM3 Basophils # (Auto) 0.1 TH/MM3 CBC Comment AUTO DIFF Differential Comment AUTO DIFF CONFIRMED Platelet Estimate HIGH Platelet Morphology Comment NORMAL Red Cell Morphology Comment NORMAL Blood Urea Nitrogen 10 MG/DL 15 MG/DL Creatinine 0.79 MG/DL 0.68 MG/DL Random Glucose 480 MG/DL 296 MG/DL Total Protein 7.7 GM/DL Albumin 3.0 GM/DL Calcium Level 8.1 MG/DL 8.3 MG/DL Phosphorus Level 2.0 MG/DL Magnesium Level 1.9 MG/DL Alkaline Phosphatase 219 U/L Aspartate Amino Transf (AST/SGOT) 48 U/L Alanine Aminotransferase (ALT/SGPT) 59 U/L Total Bilirubin 0.6 MG/DL Sodium Level 128 MEQ/L 133 MEQ/L Potassium Level 3.5 MEQ/L 4.2 MEQ/L Chloride Level 91 MEQ/L 102 MEQ/L Carbon Dioxide Level 26.8 MEQ/L 22.2 MEQ/L Troponin I LESS THAN 0.02 NG/ML Lipase 187 U/L B-Hydroxybutyrate 1.64 MMOL/L Anion Gap 9 MEQ/L Estimat Glomerular Filtration Rate 127 ML/MIN Vancomycin Level Trough 2.4 MCG/ML Objective Remarks GENERAL: Alert, Oriented x 3, NAD. SKIN: Warm and dry. Left arm has an indurated area but mild drainage at this time. HEAD: Normocephalic. EYES: No scleral icterus. No injection or drainage. NECK: Supple, trachea midline. No JVD or lymphadenopathy. CARDIOVASCULAR: Regular rate and rhythm without murmurs, gallops, or rubs. RESPIRATORY: Breath sounds equal bilaterally. No accessory muscle use. GASTROINTESTINAL: Abdomen soft, non-tender, nondistended. MUSCULOSKELETAL: left elbow erythema improving. BACK: Nontender without obvious deformity. No CVA tenderness. Medications and IVs Current Medications Medications (Trade) Dose Ordered Sig/Daniel Route Start Time Stop Time Status Last Admin Pharmacy Profile Note 0 ml @ 0 mls/hr UNSCH OTHER 06/19/17 03:00 (Dolophine) 10 mg Q12HR PO 06/19/17 21:00 06/21/17 09:25 (Zofran Inj) 4 mg Q6H PRN IV PUSH 06/19/17 18:00 (D50w (Vial) Inj) 50 ml UNSCH PRN IV PUSH 06/20/17 10:45 (Glucagon Inj) 1 mg UNSCH PRN OTHER 06/20/17 10:45 (NovoLOG SUPPLEMENTAL SCALE) 1 ACHS SLIDING SCALE SQ 06/20/17 12:00 06/21/17 12:36 (Tylenol) 500 mg Q6H PRN PO 06/20/17 10:45 ([place] 7.5-325 Mg) 1 tab Q6H PRN PO 06/20/17 10:45 06/21/17 09:25 (Ativan) 1 mg Q8H PRN PO 06/20/17 11:00 06/21/17 12:36 (KCl) 30 meq Q12HR PO 06/20/17 21:00 06/23/17 20:59 06/21/17 09:27 (Diflucan) 200 mg DAILY PO 06/20/17 16:15 06/21/17 09:26 (Levemir Inj) 30 units BID SQ 06/21/17 09:00 06/21/17 09:28 (NovoLOG INJ) 6 units TIDAC SQ 06/21/17 08:00 06/21/17 12:35 (Lovenox Inj) 40 mg Q24H SQ 06/21/17 09:00 06/21/17 09:27 Vancomycin HCl 1250 mg/Sodium Chloride 262.5 ml @ 250 mls/hr Q12H IV 06/22/17 01:00 Miscellaneous Information SPECIFIC LAB TO BE [facility]... ONCE ONCE .XX 06/23/17 12:45 06/23/17 12:46 (Morphine Inj) 2 mg Q3HR PRN IV PUSH 06/21/17 18:30 07/03/17 09:40 A/P Assessment and Plan 1. Hyperglycemia Improving but continue high asked for Diabetic education and Dietitian, continue sliding scale, Levemir continue at 35 units BID, continue pre meal insulin and increased sliding scale to medium dose 2. Hypokalemia improved, removed Potassium and follow in am tomorrow. 3. Hyponatremia improving continue IV fluids 4. left arm abscess to continue Vancomycin and Fluconazole. status post hand debt collection specialist consult, continue wound care. 5. 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 Full code. Lovenox. Adjusted pain medicines Discussed with Patient and with Nurse in the room. Discharge Planning once cleared by ID specialist. Jessee Garcia MD Jun 21, 2017 17:21
[2017-06-21] MEDS ORDERED: MORPHINE SULFATE 2 MG/ML INJ IV PUSH PRN (18:30)
[2017-06-21] MEDS: INSULIN DETEMIR 100 UNITS/ML VIAL SQ SCH (20:57)
[2017-06-22] VITALS (12 sets, daily range): BP systolic 118–141; BP diastolic 64–76; PULSE 67–91; RESP 12–28; TEMP 97.7–98.8
[2017-06-22] MEDS: ACETAMINOPHEN/HYDROcodone 325 MG/7.5 MG TAB PO PRN ×4 (00:45→21:21)
[2017-06-22] MEDS ORDERED: ZOLPIDEM TARTRATE 10 MG TAB PO ONE (00:45)
[2017-06-22] MEDS: VANCOMYCIN INJ 1,250 MG in SODIUM CHLOR 0.9% 250 ML INJ 250 ML IV SCH ×3 (00:46→23:54)
[2017-06-22] MEDS: MORPHINE SULFATE 2 MG/ML INJ IV PUSH PRN ×6 (03:18→23:53)
[2017-06-22 06:20] LABS: CALCIUM 8.5 MG/DL (8.5-10.1); CREATININE 0.84 MG/DL (0.60-1.30)
[2017-06-22] MEDS: REMOVE OLD PATCH T-DERMAL SCH (08:00)
[2017-06-22] MEDS: FLUCONAZOLE 200 MG TAB PO SCH (08:11)
[2017-06-22] MEDS: METHADONE HCL 10 MG TAB PO SCH ×2 (08:11→20:20)
[2017-06-22] MEDS: INSULIN DETEMIR 100 UNITS/ML VIAL SQ SCH ×2 (08:12→20:20)
[2017-06-22] MEDS: INSULIN ASPART SUPPLEMENTAL SCALE SQ SCH ×4 (08:12→20:20)
[2017-06-22] MEDS: INSULIN ASPART 1,000 UNITS/10 ML VIAL SQ SCH ×3 (08:12→17:02)
[2017-06-22] MEDS: ENOXAPARIN SODIUM 40 MG/0.4 ML SYRINGE SQ SCH (08:13)
[2017-06-22] MEDS: NICOTINE 21 MG/24 HR PATCH T-DERMAL SCH (08:14)
[2017-06-22] MEDS: LORazepam 1 MG TAB PO PRN ×2 (11:51→21:21)
--- NOTE | 2017-06-22 13:22 | HHI.PR ---
Subjective Remarks This is a pleasant 41 y/o male with left arm abscess in an IVDU, Hyperglycemia, Hypokalemia, improving condition, seen in the presence of nurse, patient states he has high tolerance for narcotics, but not receiving any josiah of surgical management, was increase maintenance Morphine to 2 mg every three hours as needed for pain and removed breakthrough pain. continue Vancomycin as recommended by ID specialist. and Fluconazole due to positive wound culture for Linda Albicans. 06/22: Stable in his bedroom seen in the presence of nurse, no nausea, vomit or diarrhea, will discuss with ID specialist tomorrow for discharge if possible with By mouth medicines. Objective Vital Signs Date Time Temp Pulse Resp B/P (MAP) Pulse Ox O2 Delivery O2 Flow Rate FiO2 06/22/17 08:00 98.8 79 16 121/65 (83) 06/22/17 06:33 19 06/22/17 06:00 74 06/22/17 04:00 67 06/22/17 04:00 98.5 67 12 130/64 (86) 06/22/17 02:00 72 06/22/17 01:45 13 06/22/17 00:00 84 06/22/17 00:00 97.7 84 28 118/70 (86) 06/21/17 22:00 83 06/21/17 21:56 12 06/21/17 20:00 82 06/21/17 20:00 97.9 82 20 141/91 (108) 06/21/17 18:00 68 06/21/17 16:00 70 06/21/17 16:00 98.6 70 33 96 06/21/17 14:00 68 I/O 06/21/17 06/21/17 06/21/17 06/22/17 06/22/17 06/22/17 07:00 15:00 23:00 07:00 15:00 23:00 Intake Total 480 ml 875 ml 743 ml Output Total 1300 ml 1525 ml 600 ml Balance -820 ml -650 ml 143 ml Intake Oral 480 ml 875 ml 480 ml IV Total 263 ml Output Urine Total 1300 ml 1525 ml 600 ml # Bowel Movements 0 0 Result Diagram: 06/19/17 0040 06/22/17 0525 Imaging No Imaging studies Procedures I and D. Other Results Laboratory Tests Test 1/11/18 00:40 06/19/17 10:07 06/21/17 11:45 06/22/17 05:25 White Blood Count 15.7 TH/MM3 Red Blood Count 5.02 MIL/MM3 Hemoglobin 15.4 GM/DL Hematocrit 46.4 % Mean Corpuscular Volume 92.5 FL Mean Corpuscular Hemoglobin 30.7 PG Mean Corpuscular Hemoglobin Concent 33.2 % Red Cell Distribution Width 14.6 % Platelet Count 389 TH/MM3 Mean Platelet Volume 9.5 FL Neutrophils (%) (Auto) 90.5 % Lymphocytes (%) (Auto) 5.9 % Monocytes (%) (Auto) 2.6 % Eosinophils (%) (Auto) 0.6 % Basophils (%) (Auto) 0.4 % Neutrophils # (Auto) 14.2 TH/MM3 Lymphocytes # (Auto) 0.9 TH/MM3 Monocytes # (Auto) 0.4 TH/MM3 Eosinophils # (Auto) 0.1 TH/MM3 Basophils # (Auto) 0.1 TH/MM3 CBC Comment AUTO DIFF Differential Comment AUTO DIFF CONFIRMED Platelet Estimate HIGH Platelet Morphology Comment NORMAL Red Cell Morphology Comment NORMAL Blood Urea Nitrogen 10 MG/DL 11 MG/DL Creatinine 0.79 MG/DL 0.84 MG/DL Random Glucose 480 MG/DL 305 MG/DL Total Protein 7.7 GM/DL Albumin 3.0 GM/DL Calcium Level 8.1 MG/DL 8.5 MG/DL Phosphorus Level 2.0 MG/DL Magnesium Level 1.9 MG/DL Alkaline Phosphatase 219 U/L Aspartate Amino Transf (AST/SGOT) 48 U/L Alanine Aminotransferase (ALT/SGPT) 59 U/L Total Bilirubin 0.6 MG/DL Sodium Level 128 MEQ/L 133 MEQ/L Potassium Level 3.5 MEQ/L 4.1 MEQ/L Chloride Level 91 MEQ/L 99 MEQ/L Carbon Dioxide Level 26.8 MEQ/L 25.0 MEQ/L Troponin I LESS THAN 0.02 NG/ML Lipase 187 U/L B-Hydroxybutyrate 1.64 MMOL/L Vancomycin Level Trough 2.4 MCG/ML Anion Gap 9 MEQ/L Estimat Glomerular Filtration Rate 100 ML/MIN Objective Remarks GENERAL: Alert, Oriented x 3, NAD. SKIN: Warm and dry. Left arm has an indurated area but mild drainage at this time. HEAD: Normocephalic. EYES: No scleral icterus. No injection or drainage. NECK: Supple, trachea midline. No JVD or lymphadenopathy. CARDIOVASCULAR: Regular rate and rhythm without murmurs, gallops, or rubs. RESPIRATORY: Breath sounds equal bilaterally. No accessory muscle use. GASTROINTESTINAL: Abdomen soft, non-tender, nondistended. MUSCULOSKELETAL: left elbow erythema improving. BACK: Nontender without obvious deformity. No CVA tenderness. Medications and IVs Current Medications Medications (Trade) Dose Ordered Sig/Daniel Route Start Time Stop Time Status Last Admin Pharmacy Profile Note 0 ml @ 0 mls/hr UNSCH OTHER 06/19/17 03:00 (Dolophine) 10 mg Q12HR PO 06/19/17 21:00 06/22/17 08:11 (Zofran Inj) 4 mg Q6H PRN IV PUSH 06/19/17 18:00 (D50w (Vial) Inj) 50 ml UNSCH PRN IV PUSH 06/20/17 10:45 (Glucagon Inj) 1 mg UNSCH PRN OTHER 06/20/17 10:45 (Tylenol) 500 mg Q6H PRN PO 06/20/17 10:45 ([place] 7.5-325 Mg) 1 tab Q6H PRN PO 06/20/17 10:45 06/22/17 06:54 (Ativan) 1 mg Q8H PRN PO 06/20/17 11:00 06/22/17 11:51 (Diflucan) 200 mg DAILY PO 06/20/17 16:15 06/22/17 08:11 (NovoLOG INJ) 6 units TIDAC SQ 06/21/17 08:00 06/22/17 11:54 (Lovenox Inj) 40 mg Q24H SQ 06/21/17 09:00 06/22/17 08:13 Vancomycin HCl 1250 mg/Sodium Chloride 262.5 ml @ 250 mls/hr Q12H IV 06/22/17 01:00 06/22/17 00:46 Miscellaneous Information SPECIFIC LAB TO BE [facility]... ONCE ONCE .XX 06/23/17 12:45 06/23/17 12:46 (Morphine Inj) 2 mg Q3HR PRN IV PUSH 06/21/17 18:30 07/03/17 09:40 06/22/17 11:51 (Levemir Inj) 35 units BID SQ 06/21/17 21:00 06/22/17 08:12 (NovoLOG SUPPLEMENTAL SCALE) 1 ACHS SLIDING SCALE SQ 06/21/17 21:00 06/22/17 08:12 (Habitrol 21 Mg Patch.24 Hr) 1 patch DAILY T-DERMAL 06/22/17 09:00 06/22/17 08:14 Miscellaneous Information 1 DAILY T-DERMAL 06/22/17 09:00 A/P Assessment and Plan 1. Hyperglycemia Improving but continue high asked for Diabetic education and Dietitian, continue sliding scale, Levemir continue at 35 units BID, continue pre meal insulin and increased sliding scale to medium dose, better management today. 2. Hypokalemia replaced. 3. Hyponatremia improving continue IV fluids 4. left arm abscess to continue Vancomycin and Fluconazole. status post hand neurosurgery physician consult, continue wound care. awaiting final recommendations by ID specialist, will discuss in am tomorrow No BSI. 5. 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 Full code. Lovenox. discussed with patient and nurse in the room. Discharge Planning once cleared by ID specialist. Jessee Garcia MD Jun 22, 2017 13:22
[2017-06-23] VITALS (12 sets, daily range): BP systolic 108–144; BP diastolic 56–88; PULSE 68–85; RESP 13–19; TEMP 97.9–98.8; O2SAT 99
[2017-06-23] MEDS: MORPHINE SULFATE 2 MG/ML INJ IV PUSH PRN ×6 (04:04→22:50)
[2017-06-23] MEDS: ACETAMINOPHEN/HYDROcodone 325 MG/7.5 MG TAB PO PRN ×4 (04:04→23:51)
[2017-06-23] MEDS: INSULIN ASPART 1,000 UNITS/10 ML VIAL SQ SCH ×3 (08:00→16:43)
[2017-06-23] MEDS: INSULIN ASPART SUPPLEMENTAL SCALE SQ SCH ×5 (08:00→20:25)
[2017-06-23] MEDS: FLUCONAZOLE 200 MG TAB PO SCH (08:01)
[2017-06-23] MEDS: INSULIN DETEMIR 100 UNITS/ML VIAL SQ SCH ×2 (08:02→20:25)
[2017-06-23] MEDS: METHADONE HCL 10 MG TAB PO SCH ×2 (08:02→20:24)
[2017-06-23] MEDS: ENOXAPARIN SODIUM 40 MG/0.4 ML SYRINGE SQ SCH (08:02)
[2017-06-23] MEDS: NICOTINE 21 MG/24 HR PATCH T-DERMAL SCH (08:02)
[2017-06-23] MEDS: REMOVE OLD PATCH T-DERMAL SCH (08:03)
[2017-06-23] MEDS: LORazepam 1 MG TAB PO PRN (08:12)
--- NOTE | 2017-06-23 11:19 | HHI.IDPN ---
Note Infectious Disease Note Patient without complaints except need for pain meds. Afebrile. The patient injected the left forearm with heroin prior to development of abscess. PAST MEDICAL HISTORY 1. IV drug use. 2. Diabetes mellitus. 3. Hypertension. 4. Bipolar disorder. 5. History of right orchiectomy partial. ALLERGIES PENICILLIN. Current Medications Medications (Trade) Dose Ordered Sig/Daniel Route PRN Reason Start Time Stop Time Status Last Admin Dose Admin Pharmacy Profile Note 0 ml @ 0 mls/hr UNSCH OTHER 06/19/17 03:00 Methadone HCl (Dolophine) 10 mg Q12HR PO 06/19/17 21:00 06/23/17 08:02 Ondansetron HCl (Zofran Inj) 4 mg Q6H PRN IV PUSH nausea vomiting 06/19/17 18:00 Dextrose (D50w (Vial) Inj) 50 ml UNSCH PRN IV PUSH HYPOGLYCEMIA-SEE COMMENTS 06/20/17 10:45 Glucagon (Glucagon Inj) 1 mg UNSCH PRN OTHER HYPOGLYCEMIA-SEE COMMENTS 06/20/17 10:45 Acetaminophen (Tylenol) 500 mg Q6H PRN PO FEVER, HEADACHE, PAIN 1-4 06/20/17 10:45 Acetaminophen/ Hydrocodone Bitart ([place] 7.5-325 Mg) 1 tab Q6H PRN PO PAIN SCALE 1 TO 5 06/20/17 10:45 06/23/17 11:01 Lorazepam (Ativan) 1 mg Q8H PRN PO MODERATE TO SEVERE ANXIETY 06/20/17 11:00 06/23/17 08:12 Fluconazole (Diflucan) 200 mg DAILY PO 06/20/17 16:15 06/23/17 08:01 Insulin Aspart (NovoLOG INJ) 6 units TIDAC SQ 06/21/17 08:00 06/23/17 08:00 Enoxaparin Sodium (Lovenox Inj) 40 mg Q24H SQ 06/21/17 09:00 06/23/17 08:02 Vancomycin HCl 1250 mg/Sodium Chloride 262.5 ml @ 250 mls/hr Q12H IV 06/22/17 01:00 06/22/17 23:54 Miscellaneous Information SPECIFIC LAB TO BE [facility]... ONCE ONCE .XX 06/23/17 12:45 06/23/17 12:46 Morphine Sulfate (Morphine Inj) 2 mg Q3HR PRN IV PUSH PAIN SCALE 6 TO 10 06/21/17 18:30 07/03/17 09:40 06/23/17 11:03 Insulin Detemir (Levemir Inj) 35 units BID SQ 06/21/17 21:00 06/23/17 08:02 Insulin Aspart (NovoLOG SUPPLEMENTAL SCALE) 1 ACHS SLIDING SCALE SQ 06/21/17 21:00 06/23/17 08:47 Nicotine (Habitrol 21 Mg Patch.24 Hr) 1 patch DAILY T-DERMAL 06/22/17 09:00 06/23/17 08:02 Miscellaneous Information 1 DAILY T-DERMAL 06/22/17 09:00 06/23/17 08:03 SOCIAL HISTORY IV drug abuse. No alcohol. Positive tobacco half-a-pack a day. FAMILY HISTORY Noncontributory. PHYSICAL EXAMINATION GENERAL: No acute distress. He is awake and alert and oriented. HEENT: The head is atraumatic. Extraocular movements grossly intact. Pupils reactive to light. No icterus. Oropharynx - moist mucosa without lesions. NECK: Supple. No adenopathy. LUNGS: Clear breath sounds. HEART: Regular S1 and S2 without murmurs. ABDOMEN: Bowel sounds present, soft, nontender. EXTREMITY: The left forearm has a shallow superficial ulcerated wound with mild erythema ~ 1 cm x 2 cm. The ulcer is dry. Two tiny scabbed lesion at the posterior elbow. SKIN: No diffuse rash. NEUROLOGIC: No gross focal findings. PSYCHIATRIC: The patient appears calm and cooperative. IMPRESSION Abscess following injection into the arm in patient who is an IV drug user. RECOMMENDATIONS Stop Vancomycin. Okay to discharge on PO doxycycline 100mg PO BID x 7 days and Diflucan 200mg PO daily x 7 days. I am signing off now. Zeke Dove MD Jun 23, 2017 11:19
[2017-06-23] MEDS ORDERED: LORazepam 1 MG TAB PO ONE (12:00)
[2017-06-23] MEDS ORDERED: PHARMACY ORDERED LAB ONE (12:45)
--- NOTE | 2017-06-23 13:55 | HHI.PR ---
Subjective Remarks Follow up for left arm abscess in an IVDU, hyperglycemia, hypokalemia. She does currently doing well.Chest pain, shortness of breath, fever or chills. His left arm is improving quite well. Objective Vitals Vital Signs Date Time Temp Pulse Resp B/P (MAP) Pulse Ox O2 Delivery O2 Flow Rate FiO2 06/23/17 12:00 98.8 74 18 113/73 (86) 06/23/17 12:00 74 06/23/17 10:00 74 06/23/17 08:00 98.8 74 18 112/59 (76) 06/23/17 08:00 74 06/23/17 06:00 69 06/23/17 05:04 13 06/23/17 04:09 13 06/23/17 04:00 68 06/23/17 04:00 98.4 68 13 108/57 (74) 06/23/17 02:00 68 06/23/17 00:00 75 06/23/17 00:00 98.4 75 19 114/56 (75) 06/22/17 22:00 91 06/22/17 21:20 17 06/22/17 20:00 79 06/22/17 20:00 98.5 79 17 141/76 (97) 06/22/17 18:00 67 06/22/17 16:00 74 06/22/17 16:00 98.1 74 19 130/64 (86) 06/22/17 14:00 84 I/O 06/22/17 06/22/17 06/22/17 06/23/17 06/23/17 06/23/17 07:00 15:00 23:00 07:00 15:00 23:00 Intake Total 743 ml 263 ml 800 ml 743 ml Output Total 600 ml 1400 ml 700 ml Balance 143 ml 263 ml -600 ml 43 ml Intake Oral 480 ml 800 ml 480 ml IV Total 263 ml 263 ml 263 ml Output Urine Total 600 ml 1400 ml 700 ml # Voids 1 Result Diagram: 06/19/17 0040 06/23/17 0920 Objective Remarks GENERAL: Alert, Oriented x 3, NAD. SKIN: Warm and dry. Left arm abscess s/p I&D and much improved. No drainage. HEAD: Normocephalic. EYES: No scleral icterus. No injection or drainage. NECK: Supple, trachea midline. No JVD or lymphadenopathy. CARDIOVASCULAR: Regular rate and rhythm without murmurs, gallops, or rubs. RESPIRATORY: Breath sounds equal bilaterally. No accessory muscle use. GASTROINTESTINAL: Abdomen soft, non-tender, nondistended. MUSCULOSKELETAL: No cyanosis, or edema. BACK: Nontender without obvious deformity. No CVA tenderness. Procedures None. A/P Problem List: (1) Abscess of arm, left ICD Code: L02.414 - Cutaneous abscess of left upper limb (2) IV drug abuse ICD Code: F19.10 - Other psychoactive substance abuse, uncomplicated Status: Acute (3) Uncontrolled diabetes mellitus ICD Code: E11.65 - Type 2 diabetes mellitus with hyperglycemia Status: Acute Assessment and Plan Mr. Garcia was admitted to the hospital due to hyperglycemia, left arm abscess. His Blood glucose was around 700 and elevated beta-hydroxybutyrate 1.64. Anion gap initially was 12. - Mild Diabetic ketoacidosis - Diabetes mellitus - Hypokalemia - Hyponatremia - patient was managed with SQ insulin. - Continue Levemir 35 units twice a day - pre-meal insulin 8 units TIDAC. - Hypokalemia resolved. K+ 4.1 now. - Sodium improved to 133. - Left arm abscess - IVDU - Will consult ID ==> by the time ID saw patient, wound cx showed nai. - Blood cx negative. Wound cx grew nai. - Doxycycline and Diflucan per ID. - Continue Methadone. Full code. Lovenox. Blood glucose is not very well controlled today. We will wait for conservation educator to see patient today. Likely discharge tomorrow morning 06/24/2017 Janie Baumann DO Jun 23, 2017 1:55 pm
[2017-06-23] MEDS ORDERED: clonazePAM 0.5 MG TAB PO SCH (14:00)
[2017-06-23] MEDS: clonazePAM 1 MG TAB PO SCH ×2 (14:33→20:25)
[2017-06-23] MEDS ORDERED: MORPHINE SULFATE 2 MG/ML INJ IV PUSH ONE (22:45)
[2017-06-23] MEDS: DOXYCYCLINE HYCLATE 100 MG TAB PO SCH (22:50)
[2017-06-23] MEDS ORDERED: DIATRIZOATE MEGLUM/DIATRIZOATE SOD 9 ML CUP PO ONE (23:11)
[2017-06-24] VITALS: BP 130/68; PULSE 91; RESP 19; TEMP 98; O2SAT 99
[2017-06-24 02:00] VITALS: PULSE 81
[2017-06-24] MEDS: MORPHINE SULFATE 2 MG/ML INJ IV PUSH PRN ×2 (02:40→06:38)
[2017-06-24] MEDS ORDERED: IOHEXOL 350 MG/ML 10 ML VIAL (for RAD DIAG) IVCONTRAST ONE (03:07)
--- NOTE | 2017-06-24 03:41 | RADRPT ---
EXAM DATE/TIME: 06/24/2017 03:00 This report includes an Addendum and supersedes previous reports for this exam. [facility] COMPARISON: CT ABDOMEN & PELVIS W/O CONTRAST, January 30, 2017, 1:26. INDICATIONS : Abdomen pain. IV CONTRAST: 100 cc Omnipaque 350 (iohexol) IV ORAL CONTRAST: Prescribed oral contrast ingested. RADIATION DOSE: 6.64 CTDIvol (mGy) MEDICAL HISTORY : Cardiovascular disease. Hypertension. Substance abuse. SURGICAL HISTORY : Appendectomy. ENCOUNTER: Initial ACUITY: 1 day PAIN SCALE: 5/10 LOCATION: Bilateral abdomen TECHNIQUE: Volumetric scanning of the abdomen and pelvis was performed. Using automated exposure control and ad justment of the mA and/or kV according to patient size, radiation dose was kept as low as reasonably achievable to obtain optimal diagnostic quality images. DICOM format image data is available electro nically for review and comparison. FINDINGS: LOWER LUNGS: The visualized lower lungs are clear. LIVER: The liver appears prominent. There is minimal decreased density of the liver. There is no dilation of the biliary tree. No calcified gallstones. SPLEEN: Calcified granulomas are seen. PANCREAS: Within normal limits. KIDNEYS: Normal in size and shape. There is no mass or hydronephrosis. There is a tiny 1 mm nonobstructing ri ght renal stone seen in the inferior collecting system. ADRENAL GLANDS: Within normal limits. VASCULAR: There is no aortic aneurysm. BOWEL/MESENTERY: The stomach, small bowel, and colon demonstrate no acute abnormality. There is no free intraperitone al air or fluid. ABDOMINAL WALL: Within normal limits. RETROPERITONEUM: There is no lymphadenopathy. BLADDER: No wall thickening or mass. REPRODUCTIVE: Within normal limits. INGUINAL: There is no lymphadenopathy or hernia. MUSCULOSKELETAL: There is an intramedullary yvette in the right femur. There is a linear bone fragment seen adjacent to t he anterior superior L5 vertebral body potentially from prior fracture. This was present previously. There is some hazy density in the subcutaneous fat concerning for edema and anasarca. CONCLUSION: 1. Suspected superficial edema concerning for anasarca appears be correlated clinically. 2. Prominent liver with mild hepatic steatosis. 3. Tiny nonobstructing right renal stone. Isaias Richardson MD on June 24, 2017 at 3:29 Board Certified Radiologist. This report was verified electronically. ADDENDUM: The stomach is very distended with a large amount of debris within the stomach. Isaias Richardson MD on June 24, 2017 at 4:34 Board Certified Radiologist. This report was verified electronically.
[2017-06-24 04:00] VITALS: BP 97/53; PULSE 79; RESP 13; TEMP 98.9; O2SAT 95
[2017-06-24 05:45] LABS: CREATININE 0.84 MG/DL (0.60-1.30)
[2017-06-24 06:00] VITALS: PULSE 76
[2017-06-24] MEDS: clonazePAM 1 MG TAB PO SCH (06:38)
[2017-06-24] MEDS: INSULIN ASPART 1,000 UNITS/10 ML VIAL SQ SCH (07:55)
[2017-06-24] MEDS: FLUCONAZOLE 200 MG TAB PO SCH (07:56)
[2017-06-24] MEDS: DOXYCYCLINE HYCLATE 100 MG TAB PO SCH (07:56)
[2017-06-24] MEDS: INSULIN DETEMIR 100 UNITS/ML VIAL SQ SCH (07:56)
[2017-06-24] MEDS: ENOXAPARIN SODIUM 40 MG/0.4 ML SYRINGE SQ SCH (07:56)
[2017-06-24] MEDS: METHADONE HCL 10 MG TAB PO SCH (07:57)
[2017-06-24 08:00] VITALS: BP 121/71; PULSE 80; RESP 21; TEMP 98.1; O2SAT 99
[2017-06-24] MEDS: INSULIN ASPART SUPPLEMENTAL SCALE SQ SCH (08:48)
[2017-06-24 08:49] VITALS: RESP 14
[2017-06-24] MEDS: NICOTINE 21 MG/24 HR PATCH T-DERMAL SCH (08:50)
[2017-06-24] MEDS: REMOVE OLD PATCH T-DERMAL SCH (08:51)
[2017-06-24] MEDS ORDERED: SENNOSIDES 8.6 MG TAB PO PRN (09:30)
[2017-06-24] MEDS ORDERED: MAGNESIUM HYDROXIDE SUSP 30 ML CUP PO PRN (09:30)
[2017-06-24] MEDS ORDERED: LACTULOSE SYRUP 20 GM/30 ML CUP PO PRN (09:30)
[2017-06-24] MEDS ORDERED: BISACODYL 10 MG SUPP RECTAL PRN (09:30)
[2017-06-24] MEDS ORDERED: DOXY100T PO (09:37)
[2017-06-24] MEDS ORDERED: NOVOLOGP2 SQ ×2 (09:37)
[2017-06-24] MEDS ORDERED: DIFL200T PO (09:37)
[2017-06-24] MEDS ORDERED: CLON1 PO (09:37)
[2017-06-24] MEDS ORDERED: HYDR-3580 PO (09:37)
[2017-06-24] MEDS ORDERED: LEVEMIR SQ (09:37)
--- NOTE | 2017-06-24 20:52 | HHI.DS ---
Discharge Summary Admission Date Jun 19, 2017 at 02:55 Discharge Date: Jun 24, 2017 Admitting Diagnosis left forearm abscess with cellulitis, nonketotic hyperglycemia, hypo (1) Abscess of arm, left ICD Code: L02.414 - Cutaneous abscess of left upper limb (2) IV drug abuse ICD Code: F19.10 - Other psychoactive substance abuse, uncomplicated Status: Acute (3) Uncontrolled diabetes mellitus ICD Code: E11.65 - Type 2 diabetes mellitus with hyperglycemia Status: Acute Procedures None. Brief History - From Admission Mr. 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 In ED BMP showed no anion gap, but hyperglycemia in the 700 with pseudohyponatremia CBC/BMP: 06/24/17 0444 Significant Findings Laboratory Tests Test 06/22/17 05:25 06/23/17 09:20 06/23/17 13:38 06/24/17 04:44 Random Glucose 305 MG/DL (74-106) 412 MG/DL (74-106) Sodium Level 133 MEQ/L (136-145) Imaging Last Impressions Abdomen/Pelvis CT 06/23/17 0000 Signed Impressions: Service Date/Time: Saturday, June 24, 2017 03:00 - CONCLUSION: 1. Suspected superficial edema concerning for anasarca appears be correlated clinically. 2. Prominent liver with mild hepatic steatosis. 3. Tiny nonobstructing right renal stone. Isaias Richardson MD ADDENDUM: The stomach is very distended with a large amount of debris within the stomach. Isaias Richardson MD PE at Discharge GENERAL: Alert, Oriented x 3, NAD. SKIN: Warm and dry. Left arm abscess s/p I&D and much improved. No drainage. HEAD: Normocephalic. EYES: No scleral icterus. No injection or drainage. NECK: Supple, trachea midline. No JVD or lymphadenopathy. CARDIOVASCULAR: Regular rate and rhythm without murmurs, gallops, or rubs. RESPIRATORY: Breath sounds equal bilaterally. No accessory muscle use. GASTROINTESTINAL: Abdomen soft, non-tender, nondistended. MUSCULOSKELETAL: No cyanosis, or edema. BACK: Nontender without obvious deformity. No CVA tenderness. Pt update on day of discharge Patient is currently doing well. Left arm wound healing well. No fever, chills. Hospital Course Mr. Garcia was admitted to the hospital due to hyperglycemia, left arm abscess. His Blood glucose was around 700 and elevated beta-hydroxybutyrate 1.64. Anion gap initially was 12. - Mild Diabetic ketoacidosis - Diabetes mellitus - Hypokalemia - Hyponatremia - patient was managed with SQ insulin. - Continue Levemir 35 units twice a day - pre-meal insulin 8 units TIDAC. - Hypokalemia resolved. K+ 4.1 - Sodium improved to 133. - Patient is advised to follow up with a PCP and also possibly with an Real Estate Development Manager. - Left arm abscess - IVDU - Will consult ID ==> by the time ID saw patient, wound cx showed nai. - Blood cx negative. Wound cx grew nai. - Doxycycline and Diflucan per ID. - Continue Methadone in patient. - Patient was extensively counselled not to use IV drugs. He verbalized understanding. Full code. Lovenox. Pt Condition on Discharge: Good Discharge Disposition: Discharge Home Discharge Time: > 30 minutes Discharge Instructions DIET: Follow Instructions for: Diabetic Diet Activities you can perform: Regular-No Restrictions Follow up Referrals: Endocrinology - 2 Weeks PCP Follow-up - 1 Week New Medications: Insulin Aspart Inj (Novolog Inj) 1,000 Unit/10 Ml Vial 1-9 UNITS SQ ACHS for Blood Sugar Management, #10 ML 0 Refills Max dose at bedtime:( )units; sugars less than 70,(0)units; sugars 150-199,(1) unit; sugars 200-249,(3) units; sugars 250-299,(5) units; sugars 300-349,(7) units; sugars greater than 349,(9) units Clonazepam (Klonopin) 1 Mg Tab 1 MG PO Q8HR for Anxiety, #21 TAB Doxycycline Hyclate (Doxycycline Hyclate) 100 Mg Tab 100 MG PO Q12HR for Infection, #14 TAB Fluconazole (Diflucan) 200 Mg Tab 200 MG PO DAILY for Infection, #7 TAB Hydrocodone/Acetaminophen (Hydrocodone-Acetamin 7.5-325) 7.5 Mg-325 Mg Tablet 1 TAB PO Q6H PRN for PAIN SCALE 1 TO 5, #20 TAB Insulin Aspart Inj (Novolog Inj) 1,000 Unit/10 Ml Vial 8 UNITS SQ TIDAC for Blood Sugar Management for 30 Days, INJECTION Hold if pre-meal blood glucose less than 110. Insulin Detemir Inj (Levemir Inj) 1,000 unit/ 10 ML Vial 35 UNITS SQ BID for Blood Sugar Management for 30 Days, INJECTION 3 Refills Do not mix with any other Insulin. Continued Medications: Metformin (Metformin) 1,000 Mg Tab 1000 MG PO BIDPC for Blood Sugar Management for 30 Days, #60 TAB 0 Refills With meals Discontinued Medications: Insulin Glargine Inj (Lantus Inj) 1,000 Unit/10 Ml Vial 20 UNITS SQ BID for Blood Sugar Management for 30 Days, VIAL 0 Refills Insulin Human Regular Inj (Novolin R Inj) 1,000 Unit/10 Ml Vial 1 UNIT SQ DIRECTED for Blood Sugar Management for 30 Days, #10 ML 0 Refills Sliding Scale As Directed. accu-check AC/HS with regular insulin coverage; 150-200 two units 201-250 four units 251-300 six units 301-350 eight units 350-400 ten units inform PCP if < 70 or > 400. Janie Baumann DO Jun 24, 2017 20:52
== END 2017-06-24 10:20 | disposition home or self-care (01) | DRG 602 ==
LOC: NEPD 20:10 → NEDA 06-19 02:55 → HIMN 06-19 16:49
PROVIDERS: ADMIT Hospitalist; ATTEND Hospitalist
PROC: 0H9EXZZ Drainage of Left Lower Arm Skin, External Approach (ICD-10-PCS; principal; 2017-06-19)
DX: L02.414 Cutaneous abscess of left upper limb (principal); E11.10 Type 2 diabetes mellitus with ketoacidosis without coma; F11.23 Opioid dependence with withdrawal; E87.1 Hypo-osmolality and hyponatremia; F31.9 Bipolar disorder, unspecified; B37.2 Candidiasis of skin and nail; L03.114 Cellulitis of left upper limb; I10 Essential (primary) hypertension; E87.6 Hypokalemia; H91.91 Unspecified hearing loss, right ear; Z72.0 Tobacco use; Z79.4 Long term (current) use of insulin; Z88.0 Allergy status to penicillin
CPT/HCPCS: 10061; 74177; 80048; 80053; 80202; 82010; 82565; 82947; 82948; 83690; 83735; 84100; 84484; 85025; 87040; 87070; 87205; 96361; 96372; 96374; 96375; J0500; J1650; J1815; J1817; J1956; J2060; J2270; J2405; J2550; J3370; J3480; J7030; J7050; Q9963; Q9967